=== PATIENT | male | born 1985 | race Two or more races ===

== ENCOUNTER 2019-04-11 12:21 | Emergency (ER) | payer MEDICAID, MEDICARE ==
[2019-04-11] MEDS ORDERED: cefTRIAXone 250 MG VIAL IM STA (12:44)
[2019-04-11] MEDS ORDERED: LIDOCAINE 1% 2 ML VIAL MC ONE (12:44)
--- NOTE | 2019-04-11 12:46 | ED Physician Documentation ---
History of Present Illness - Stated complaint Stated Complaint: MALE - Chief complaint Chief Complaint: General - History obtained from History obtained from: Patient - History of Present Illness Timing: Today (33-year-old gentleman presents with multiple complaints, first and foremost he is worried because he found out his has gonorrhea and would like to be tested and treated for same. He has no symptoms of that, no dysuria or discharge. He is unsure of whether he has had sex with his recently or not. Secondly has longstanding night sweats which he relates to his muscle relaxers and poor weight gain for 10 years. Finally he wants to quit smoking and would like a nicotine patch.) Review of Systems Constitutional: reports: Sweats (Only at night, Chronic). denies: Fever, Chills, Fatigue, Weight Loss Cardiac: denies: Chest pain / pressure, Palpitations Respiratory: denies: Dyspnea, Cough PD PAST MEDICAL HISTORY - Past Medical History Psych: Anxiety, ADD/ADHD, Other Musculoskeletal: Paraplegia - Past Surgical History Past Surgical History: No - Present Medications Home Medications: Ambulatory Orders Medication Instructions Recorded Confirmed Baclofen 20 mg PO TID 04/17/14 04/17/14 Nicotine 14 mg Patch [Nicoderm] 1 each TOP Q24H #30 patch 04/11/19 - Allergies Allergies/Adverse Reactions: Allergies Allergy/AdvReac Type Severity Reaction Status Date / Time acetaminophen [From Tylenol] AdvReac Dizziness Verified 04/17/14 18:50 - Social History Does the pt smoke?: Yes Smoking Status: Current every day smoker Does the pt drink ETOH?: No Does the pt have substance abuse?: Yes PD ED PE NORMAL - Vitals Vital signs reviewed: Yes - General General: Alert and oriented X 3, No acute distress - HEENT HEENT: PERRL, EOMI - Neck Neck: Supple, no meningeal sign, No bony TTP - Neuro Neuro: Alert and oriented X 3, Normal speech Results - Vitals Vitals: Vital Signs - 24 hr 04/11/19 12:26 Temperature 36.8 C Heart Rate 114 H Respiratory 20 Rate Blood Pressure 145/81 H O2 Saturation 98 Oxygen O2 Source Room air PD MEDICAL DECISION MAKING - ED course ED course: Discussed with him that we were happy to test and treat for gonorrhea, and nicotine patches no problem at all. For the other chronic issues I referred him back to his primary care physician. Departure - Departure Disposition: Home, Self Care Clinical Impression: Possible exposure to STD, Tobacco abuse Condition: Good Record reviewed to determine appropriate education?: Yes Instructions: ED STD Male Treated, ED Smoking Cessation Prescriptions: Nicotine 14 mg Patch [Nicoderm] 1 each TOP Q24H #30 patch Comments: We are testing and treating for gonorrhea. We are also testing for chlamydia. If either comes back positive we will call you. I am prescribing the nicotine patch as requested to help you quit smoking. For the other issues I recommend you follow-up with your primary care physician, next available appointment. Return for new or worsening symptoms.
[2019-04-11 12:56] VITALS: BP 127/77
[2019-04-11 21:48] LABS: TRICHOMONAS VAGINALIS DNA NEGATIVE (NEGATIVE)
== END 2019-04-11 13:20 | disposition home or self-care (01) ==
LOC: ED 12:21
DX: Z04.89 Encounter for examination and observation for other specified reasons (principal); F17.200 Nicotine dependence, unspecified, uncomplicated
CPT/HCPCS: 87491; 87591; 87661; 96372; 99283

== ENCOUNTER 2020-04-19 02:24 | Emergency (ER) | payer MEDICARE, MEDICAID ==
[2020-04-19 02:36] VITALS: BP 152/91
--- NOTE | 2020-04-19 02:55 | ED Physician Documentation ---
PD HPI HEENT - Stated complaint Stated Complaint: JAW PX - Chief complaint Chief Complaint: Heent - History obtained from History obtained from: Patient - History of Present Illness Timing - onset: Chronic Timing - details: Constant, Still present in ED Pain level now: 8 Location: Other (left mandible) Improves: Nothing Associated symptoms: No: Fever - Additional information Additional information: c/o chronic left jaw pain for which he was started on buprenorphone patch yesterday. despite this new medication, he says his pain continues without improvement. he says he has more patches but isnt clear if he is allowed to use more than one at a time. he is also concerned because he has had dental abscesses in the past when the pain has become as intense as it is today Review of Systems Constitutional: reports: Reviewed and negative Throat: reports: Dental pain / toothache (left mandibular pain although not noted to be associated with any specific tooth or teeth). denies: Sore throat PD PAST MEDICAL HISTORY - Past Medical History Neuro: Cerebral palsy Psych: Anxiety, ADD/ADHD, Other Musculoskeletal: Paraplegia - Past Surgical History Past Surgical History: No - Present Medications Home Medications: Ambulatory Orders Medication Instructions Recorded Confirmed Baclofen 20 mg PO TID 04/17/14 04/17/14 Nicotine 14 mg Patch [Nicoderm] 1 each TOP Q24H #30 patch 04/11/19 oxyCODONE [Roxicodone] 5 mg PO Q6H PRN #14 tablet 04/19/20 - Allergies Allergies/Adverse Reactions: Allergies Allergy/AdvReac Type Severity Reaction Status Date / Time acetaminophen [From Tylenol] AdvReac Dizziness Verified 04/17/14 18:50 [email or web address] [From Chantix] AdvReac Anxiety Verified 04/19/20 02:36 - Social History Does the pt smoke?: Yes Smoking Status: Current every day smoker Does the pt drink ETOH?: No Does the pt have substance abuse?: Yes - POLST Patient has POLST: No PD ED PE NORMAL - Vitals Vital signs reviewed: Yes - General General: Alert and oriented X 3, No acute distress, Well developed/nourished - HEENT HEENT: Moist mucous membranes, Dentition benign - Neck Neck: Supple, no meningeal sign Results - Vitals Vitals: Vital Signs - 24 hr 04/19/20 02:33 Temperature 36.4 C L Heart Rate 64 Respiratory 18 Rate Blood Pressure 152/91 H O2 Saturation 100 Oxygen O2 Source Room air PD MEDICAL DECISION MAKING - ED course Complexity details: considered differential, d/w patient ED course: patient presents with left mandible pain which he says he has had chronically but he has had no relief with recently placed buprenorphone patch. he is given oxycodone in ED as well as keflex for possible infectious cause (although no evidence of this on exam, he says the intensity of the pain is similar to previous dental abscess) Departure - Departure Disposition: 01 Home, Self Care Clinical Impression: Jaw pain Condition: Good Instructions: ED Tooth Pain Follow-Up: Laurence Urena MD [Primary Care Provider] - Prescriptions: oxyCODONE [Roxicodone] 5 mg PO Q6H PRN #14 tablet PRN Reason: Pain Discharge Date/Time: 04/19/20 03:45
[2020-04-19] MEDS ORDERED: cephALEXin 250 MG CAPSULE PO STA (03:18)
[2020-04-19] MEDS ORDERED: oxyCODONE 5 MG TABLET PO STA (03:18)
== END 2020-04-19 03:45 | disposition home or self-care (01) ==
LOC: ED 02:24
DX: R68.84 Jaw pain (principal); G80.9 Cerebral palsy, unspecified; F17.200 Nicotine dependence, unspecified, uncomplicated
CPT/HCPCS: 99282; 99283; A9270

== ENCOUNTER 2020-05-01 14:06 | Outpatient (CLI) | payer MEDICARE, MEDICAID ==
[2020-05-01 14:46] LABS: BILIRUBIN,DIRECT 0.1 mg/dL (0.1-0.5); BILIRUBIN,TOTAL 0.4 mg/dL (0.2-1.0); TOTAL PROTEIN 7.1 g/dL (6.7-8.2)
== END 2020-05-01 14:07 | disposition home or self-care (01) ==
LOC: LAB 14:06
PROVIDERS: ATTEND Physical Medicine & Rehabilitation
DX: M62.838 Other muscle spasm (principal)
CPT/HCPCS: 36415; 80076

== ENCOUNTER 2020-07-12 12:08 | Emergency (ER) | payer MEDICARE, MEDICAID ==
[2020-07-12] MEDS ORDERED: SODIUM CHLORIDE 0.9% 1,000 ML IV STA ×2 (12:48→14:06)
--- NOTE | 2020-07-12 12:48 | ED Physician Documentation ---
History of Present Illness - Stated complaint Stated Complaint: MALE - Chief complaint Chief Complaint: General - History obtained from History obtained from: Patient - Treatment prior to arrival Treatment prior to arrival: The previous antibiotic was Bactrim. - Additonal information Additional information: 34-year-old gentleman with history of cerebral palsy, autism. Diagnosed with UTI at the [facility] approximately 10 days ago. Was on about 7 days worth of antibiotics. After stopping the antibiotics the symptoms that preceded his previous UTI returned which consisted of nausea, vomiting, and generalized bloating. He now feels like he is dehydrated and does not have any ability to take in oral liquids because of the nausea although declines nausea medication or pain medication on initial evaluation. Review of Systems Constitutional: reports: Fever (100.0) Ears: denies: Loss of hearing, Ear pain Throat: denies: Dental pain / toothache Cardiac: denies: Chest pain / pressure, Palpitations Respiratory: denies: Dyspnea, Cough PD PAST MEDICAL HISTORY - Past Medical History Neuro: Cerebral palsy Psych: Anxiety, ADD/ADHD, Other Musculoskeletal: Paraplegia - Past Surgical History Past Surgical History: No - Present Medications Home Medications: Ambulatory Orders Medication Instructions Recorded Confirmed Baclofen 20 mg PO TID 04/17/14 04/17/14 Nicotine 14 mg Patch [Nicoderm] 1 each TOP Q24H #30 patch 04/11/19 oxyCODONE [Roxicodone] 5 mg PO Q6H PRN #14 tablet 04/19/20 Ondansetron Odt [Zofran] 4 mg TL Q6H PRN #10 tab 07/12/20 - Allergies Allergies/Adverse Reactions: Allergies Allergy/AdvReac Type Severity Reaction Status Date / Time diphenhydramine Allergy Unknown Verified 07/12/20 12:23 [From Benadryl] acetaminophen [From Tylenol] AdvReac Dizziness Verified 07/12/20 12:23 [email or web address] [From Chantix] AdvReac Anxiety Verified 07/12/20 12:23 - Social History Does the pt smoke?: Yes Smoking Status: Current every day smoker Does the pt drink ETOH?: No Does the pt have substance abuse?: Yes - POLST Patient has POLST: No PD ED PE NORMAL - Vitals Vital signs reviewed: Yes - General General: Alert and oriented X 3, No acute distress, Other (in a wheelchair) - Cardiac Cardiac: RRR, No murmur - Respiratory Respiratory: No respiratory distress, Clear bilaterally - Abdomen Abdomen: Normal bowel sounds, Soft, Non tender - Back Back: No CVA TTP - Derm Derm: No rash - Neuro Neuro: Alert and oriented X 3, Normal speech Results - Vitals Vitals: Vital Signs - 24 hr 07/12/20 07/12/20 07/12/20 12:12 14:26 17:09 Temperature 36.2 C L 36.6 C Heart Rate 60 55 L 50 L Respiratory 16 16 Rate Blood Pressure 148/79 H 126/88 H 134/88 H O2 Saturation 99 100 100 07/12/20 17:33 Temperature Heart Rate 54 L Respiratory 16 Rate Blood Pressure 130/99 H O2 Saturation 100 Oxygen O2 Source Room air - Labs Labs: Laboratory Tests 07/12/20 07/12/20 12:56 12:56 WBC 7.1 RBC 4.69 L Hgb 14.8 Hct 43.8 MCV 93.4 MCH 31.6 H MCHC 33.8 RDW 12.8 Plt Count 244 MPV 10.0 Neut # (Auto) 4.4 Lymph # (Auto) 1.8 [place] # (Auto) 0.7 Eos # (Auto) 0.2 Baso # (Auto) 0.0 Absolute Nucleated RBC 0.00 Nucleated RBC % 0.0 Sodium 143 Potassium 3.2 L Chloride 95 L Carbon Dioxide 27 Anion Gap 21.0 H BUN 13 Creatinine 0.9 Estimated GFR (MDRD) 95 Glucose 129 H Calcium 10.5 H Total Bilirubin 0.6 AST 16 ALT 15 Alkaline Phosphatase 60 Total Protein 8.2 Albumin 5.2 Globulin 3.0 Albumin/Globulin Ratio 1.7 PD MEDICAL DECISION MAKING - ED course ED course: 34-year-old gentleman with history of neurogenic bladder and cerebral palsy presents after a syndrome of vomiting and diarrhea, previous UTI on antibiotics and bloating with decreased urine output. He received first liter of fluid, subsequently bladder scan was 0. After second liter of fluid he had a scant amount in his bladder on bedside ultrasound. That was done by me, there was no free fluid in the abdomen and sonographic examination of both kidneys looked grossly normal. His labs do not show significant dehydration, his BUN is 13 and his creatinine is 0.9. He was administered some oral potassium here. The third liter of fluids was administered. He also requested oral fluids which was given. After 3 L of fluid he had a significant mount of urine in his bladder but did not feel like he could pee and declined in and out cath. Instead, he would like to go home and try some "intense CBD" to see if that can help him pee. Departure - Departure Disposition: 01 Home, Self Care Clinical Impression: Dehydration, Nausea Condition: Good Record reviewed to determine appropriate education?: Yes Instructions: ED Dehydration Prescriptions: Ondansetron Odt [Zofran] 4 mg TL Q6H PRN #10 tab PRN Reason: Nausea / Vomiting Comments: Come back anytime if for new or worsening symptoms or if not improving. Follow- up with your doctor, next available appointment.
[2020-07-12 13:02] LABS: BASOPHILS % (AUTO) 0.4 %; EOSINOPHILS # (AUTO) 0.2 10^3/uL (0.0-0.7); EOSINOPHILS % (AUTO) 2.4 %; HCT - HEMATOCRIT 43.8 % (42.0-52.0); HGB - HEMOGLOBIN 14.8 g/dL (14.0-18.0); LYMPHOCYTES # (AUTO) 1.8 10^3/uL (1.5-3.5); LYMPHOCYTES % (AUTO) 25.4 %; MEAN CORPUSCULAR HEMOGLOBIN 31.6 pg (27.0-31.0); MEAN CORPUSCULAR HGB CONC 33.8 g/dL (32.0-36.0); MEAN CORPUSCULAR VOLUME 93.4 fL (80.0-94.0); MONOCYTES # (AUTO) 0.7 10^3/uL (0.0-1.0); MONOCYTES % (AUTO) 9.3 %; NEUTROPHILS # (AUTO) 4.4 10^3/uL (1.5-6.6); NEUTROPHILS % (AUTO) 62.2 %; PLT - PLATELET COUNT 244 10^3/uL (130-450); RED BLOOD COUNT 4.69 10^6/uL (4.70-6.10); RED CELL DISTRIBUTION WIDTH 12.8 % (12.0-15.0); WHITE BLOOD COUNT 7.1 x10^3/uL (4.8-10.8)
[2020-07-12 13:20] LABS: ALBUMIN 5.2 g/dL (3.2-5.5); ALBUMIN/GLOBULIN RATIO 1.7 (1.0-2.2); BILIRUBIN,TOTAL 0.6 mg/dL (0.2-1.0); CALCIUM 10.5 mg/dL (8.5-10.3); CREATININE 0.9 mg/dL (0.6-1.2); POTASSIUM 3.2 mmol/L (3.5-5.0); TOTAL PROTEIN 8.2 g/dL (6.7-8.2)
[2020-07-12] MEDS ORDERED: LACTATED RINGERS 1,000 ML IV STA ×2 (14:00→16:04)
[2020-07-12] MEDS ORDERED: POTASSIUM CHLORIDE 20 MEQ TABLET PO STA (14:06)
[2020-07-12] MEDS ORDERED: ONDANSETRON ODT 4 MG TABLET TL STA (18:09)
[2020-07-12 18:29] VITALS: BP 140/83
== END 2020-07-12 18:37 | disposition home or self-care (01) ==
LOC: ED 12:08
DX: E86.0 Dehydration (principal); R11.2 Nausea with vomiting, unspecified; R14.0 Abdominal distension (gaseous); G80.8 Other cerebral palsy; F84.0 Autistic disorder; F17.200 Nicotine dependence, unspecified, uncomplicated
CPT/HCPCS: 36415; 51798; 80053; 85025; 96360; 96361; 99283; A9270; J7120; Q0162

== ENCOUNTER 2020-11-06 13:39 | Emergency (ER) | payer MEDICARE, MEDICAID ==
[2020-11-06 14:20] LABS: BASOPHILS # (AUTO) 0.1 10^3/uL (0.0-0.1); BASOPHILS % (AUTO) 0.5 %; EOSINOPHILS # (AUTO) 0.5 10^3/uL (0.0-0.7); EOSINOPHILS % (AUTO) 4.8 %; HGB - HEMOGLOBIN 13.8 g/dL (14.0-18.0); LYMPHOCYTES # (AUTO) 1.6 10^3/uL (1.5-3.5); LYMPHOCYTES % (AUTO) 14.7 %; MEAN CORPUSCULAR HEMOGLOBIN 31.7 pg (27.0-31.0); MEAN CORPUSCULAR HGB CONC 34.5 g/dL (32.0-36.0); MEAN PLATELET VOLUME 9.6 fL (7.4-11.4); MONOCYTES # (AUTO) 0.8 10^3/uL (0.0-1.0); MONOCYTES % (AUTO) 7.6 %; NEUTROPHILS # (AUTO) 7.6 10^3/uL (1.5-6.6); NEUTROPHILS % (AUTO) 72.2 %; PLT - PLATELET COUNT 261 10^3/uL (130-450); RED BLOOD COUNT 4.35 10^6/uL (4.70-6.10); RED CELL DISTRIBUTION WIDTH 12.6 % (12.0-15.0); WHITE BLOOD COUNT 10.6 x10^3/uL (4.8-10.8)
--- NOTE | 2020-11-06 14:20 | XRAY Report ---
PROCEDURE: Chest 1 View X-Ray INDICATIONS: Chest Pain TECHNIQUE: One view of the chest was acquired. COMPARISON: None. FINDINGS: Surgical changes and devices: None. Lungs and pleura: No pleural effusions or pneumothorax. Lungs are clear. Mediastinum: Mediastinal contours appear normal. Heart size is normal. Bones and chest wall: No suspicious bony lesions. Overlying soft tissues appear unremarkable. IMPRESSION: Normal for age, source of current symptoms is not seen. Reviewed by: Stalin Ho MD on 11/06/2020 1:18 PM AKALIYA Approved by: Stalin Ho MD on 11/06/2020 1:18 PM AKALIYA Station ID: [id number]
[2020-11-06 14:38] LABS: ALBUMIN 4.3 g/dL (3.2-5.5); ALBUMIN/GLOBULIN RATIO 1.6 (1.0-2.2); BILIRUBIN,TOTAL 0.5 mg/dL (0.2-1.0); CALCIUM 9.1 mg/dL (8.5-10.3); CREATININE 0.7 mg/dL (0.6-1.2); POTASSIUM 3.5 mmol/L (3.5-5.0)
--- OUTSIDE RECORDS SUMMARY | 2020-11-06 14:38 | EXTERNAL MEDICAL SUMMARY RPT | Continuity of Care Document ---
:1985 Demographics Phone Unavailable Preferred Language Unknown Marital Status Unknown Muslim Affiliation Unknown Race Unknown Ethnic Group Unknown Author Organization [facility] Address [address] [id number] Phone Allergies Encounters Medications Problems Results
[2020-11-06] MEDS ORDERED: SODIUM CHLORIDE 0.9% 1,000 ML IV STA ×2 (15:00→15:05)
[2020-11-06] MEDS ORDERED: ONDANSETRON 4 MG/2 ML VIAL IVP STA (15:00)
--- NOTE | 2020-11-06 15:04 | ED Physician Documentation ---
History of Present Illness - Stated complaint Stated Complaint: NAUSEA/FAINTING - Chief complaint Chief Complaint: General - Additonal information Additional information: 35-year-old male who has a history of cerebral palsy as well as dystonia reports to the emergency department for 2 to 3 days of uncontrolled vomiting as well as multiple syncopal episodes. He reports the vomiting has been a longtime concern for him. He has been told it is a medication side effect. He reports a recent colonoscopy and EGD that did not show any findings associated with GERD or gastritis but he does have dystonia of the gut. Patient denies chest pain or shortness of air. No abdominal pain melena or hematochezia. Patient is on buponephrone 20 carmita patch changed every week for pain control and dystonia. Review of Systems Constitutional: denies: Fever, Chills Eyes: reports: Reviewed and negative Ears: reports: Reviewed and negative Nose: reports: Reviewed and negative Throat: reports: Reviewed and negative Cardiac: denies: Chest pain / pressure, Palpitations Respiratory: denies: Dyspnea, Cough GI: reports: Nausea, Vomiting. denies: Abdominal Pain, Constipation, Diarrhea, Hematemesis, Bloody / black stool : denies: Dysuria, Frequency, Hesitancy Skin: denies: Rash, Lesions Musculoskeletal: denies: Neck pain, Back pain, Extremity pain Neurologic: denies: Generalized weakness, Focal weakness Psychiatric: denies: Depressed, Suicidal PD PAST MEDICAL HISTORY - Past Medical History Neuro: Cerebral palsy Psych: Anxiety, ADD/ADHD, Other Musculoskeletal: Paraplegia - Past Surgical History Past Surgical History: No - Present Medications Home Medications: Ambulatory Orders Medication Instructions Recorded Confirmed Buprenorphine 1 patch TOP ONCE 11/06/20 11/06/20 Dantrolene Sodium [Dantrium] 75 mg PO TID 11/06/20 11/06/20 Metoclopramide [Reglan] 10 mg PO Q6H PRN #20 tablet 11/06/20 - Allergies Allergies/Adverse Reactions: Allergies Allergy/AdvReac Type Severity Reaction Status Date / Time diphenhydramine Allergy Unknown Verified 11/06/20 13:46 [From Benadryl] acetaminophen [From Tylenol] AdvReac Dizziness Verified 11/06/20 13:46 [email or web address] [From Chantix] AdvReac Anxiety Verified 11/06/20 13:46 - Social History Does the pt smoke?: Yes Smoking Status: Current every day smoker Does the pt drink ETOH?: No Does the pt have substance abuse?: Yes - POLST Patient has POLST: No PD ED PE EXPANDED - General General: Alert, No acute distress - Neck Neck: Supple w/out meningeal sx, No tenderness - Cardiac Cardiac: Regular Rate, Regular Rhythm, Radial strong equal, Pedal strong equal, Cap refill < 2 sec. No: Murmur Present - Respiratory Respiratory: Clear to ausultation seven. No: Distress, Labored - Abdomen Abdomen: Normal Bowel sounds. No: Tender to palpation - Extremities Extremities: Normal, Pedal edema bilateral (unchanged from baseline). No: Deformity, Tenderness - Neuro Neuro: Alert and Oriented X 3, CNII-XII intact - GCS Eye Opening: Spontaneous Motor: Obeys Commands Verbal: Oriented Total: 15 Results - Vitals Vitals: Vital Signs - 24 hr 11/06/20 11/06/20 11/06/20 13:47 15:06 15:51 Temperature 37.3 C Heart Rate 78 67 Heart Rate [ 83 Sitting] Heart Rate [ 78 Supine] Respiratory 18 18 Rate Blood Pressure 151/80 H 126/77 Blood Pressure 138/82 H [Sitting] Blood Pressure 133/72 H [Supine] O2 Saturation 99 99 Oxygen O2 Source Room air - EKG (time done) 1419 Rate: Rate (enter#) (75) Rhythm: Sinus bradycardia [place]: Normal QRS: LVH, Poor R wave progression Ischemia: Normal ST segments Compare to prior EKG: Old EKG unavailable Computer interpretation: Agree with computer - Labs Labs: Laboratory Tests 11/06/20 11/06/20 11/06/20 14:15 14:15 14:15 WBC 10.6 RBC 4.35 L Hgb 13.8 L Hct 40.0 L MCV 92.0 MCH 31.7 H MCHC 34.5 RDW 12.6 Plt Count 261 MPV 9.6 Neut # (Auto) 7.6 H Lymph # (Auto) 1.6 [place] # (Auto) 0.8 Eos # (Auto) 0.5 Baso # (Auto) 0.1 Absolute Nucleated RBC 0.00 Nucleated RBC % 0.0 Sodium 137 Potassium 3.5 Chloride 102 Carbon Dioxide 25 Anion Gap 10.0 BUN 10 Creatinine 0.7 Estimated GFR (MDRD) 127 Glucose 104 H Calcium 9.1 Total Bilirubin 0.5 AST 16 ALT 10 Alkaline Phosphatase 52 Troponin I High Sens 4.0 Total Protein 7.0 Albumin 4.3 Globulin 2.7 Albumin/Globulin Ratio 1.6 Lipase 18 L - Rads (name of study) CXR Radiology: Final report received (Normal for age, source of current symptoms is not seen.) PD MEDICAL DECISION MAKING - ED course Complexity details: reviewed results, re-evaluated patient, d/w patient ED course: 35-year-old male who has a history of cerebral palsy as well as dystonia presents the emergency department with 2 to 3 days of uncontrolled vomiting as well as syncope. He reports that he has fainted in the past after vomiting and becoming dehydrated. Today's screening labs, EKG and chest x-ray are all without acute worrisome findings. We did do a limited orthostatics given his history of cerebral palsy that showed no vital sign aberrancy. This gentleman was given 2 L of crystalloid with improved nausea in the emergency department. He had no vomiting and was tolerating sips of clear liquids. He was given Zofran followed by a dose of Reglan. I suspect that the cause of his vomiting is secondary to the dystonia and cerebral palsy. No abdominal pain was elicited therefore imaging was deferred. I will write a prescription for Reglan to help with the dystonia and vomiting. Patient is to continue follow-up with his neurologist for long-term management of his cerebral palsy. Emergent return precautions were discussed. Departure - Departure Disposition: 01 Home, Self Care Clinical Impression: Dystonia Vomiting Qualifiers: Vomiting type: unspecified Vomiting Intractability: non-intractable Nausea presence: with nausea Qualified Code(s): R11.2 - Nausea with vomiting, unspecified Cerebral palsy Qualifiers: Cerebral palsy type: unspecified type Qualified Code(s): G80.9 - Cerebral palsy, unspecified Condition: Stable Record reviewed to determine appropriate education?: Yes Prescriptions: Metoclopramide [Reglan] 10 mg PO Q6H PRN #20 tablet PRN Reason: Nausea / Vomiting Comments: *You are seen in the emergency department today for vomiting in the setting of a history of cerebral palsy as well as dystonia. Your screening labs, chest x- ray and EKG did not show any worrisome findings. I suspect that the vomiting may be secondary to medications that you are taking for the cerebral palsy and dystonia or directly related to the dystonia itself. To help with this I have prescribed a medication called Reglan that should help with the nausea and vomiting at home. You are given 2 L of IV fluids here in the emergency department today. It is important that you discuss long-term follow-up and management of your dystonia with your neurologist. If at any point you have worsening vomiting, persistence of the fainting spells suddenly severe abdominal pain or fevers please return to the ER for a second evaluation
[2020-11-06] MEDS ORDERED: METOCLOPRAMIDE 10 MG/2 ML VIAL IVP STA (15:48)
[2020-11-06 16:40] VITALS: BP 117/77
[2020-11-07] MEDS ORDERED: FLUoxetine 10 MG CAPSULE PO SCH (09:00)
== END 2020-11-06 17:17 | disposition home or self-care (01) ==
LOC: ED 13:39
DX: G24.9 Dystonia, unspecified (principal); G80.9 Cerebral palsy, unspecified; R11.2 Nausea with vomiting, unspecified; R00.1 Bradycardia, unspecified; F17.200 Nicotine dependence, unspecified, uncomplicated
CPT/HCPCS: 36415; 71045; 80053; 83690; 84484; 85025; 93005; 96374; 96375; 99283; 99284; J2765

== ENCOUNTER 2021-02-12 14:41 | Outpatient (CLI) | payer MEDICARE, MEDICAID ==
[2021-02-12 15:02] LABS: BASOPHILS % (AUTO) 0.4 %; EOSINOPHILS # (AUTO) 0.4 10^3/uL (0.0-0.7); EOSINOPHILS % (AUTO) 4.5 %; HCT - HEMATOCRIT 42.9 % (42.0-52.0); HGB - HEMOGLOBIN 14.3 g/dL (14.0-18.0); LYMPHOCYTES # (AUTO) 1.7 10^3/uL (1.5-3.5); LYMPHOCYTES % (AUTO) 17.6 %; MEAN CORPUSCULAR HEMOGLOBIN 31.1 pg (27.0-31.0); MEAN CORPUSCULAR HGB CONC 33.3 g/dL (32.0-36.0); MEAN CORPUSCULAR VOLUME 93.3 fL (80.0-94.0); MEAN PLATELET VOLUME 9.9 fL (7.4-11.4); MONOCYTES # (AUTO) 0.9 10^3/uL (0.0-1.0); MONOCYTES % (AUTO) 9.2 %; NEUTROPHILS # (AUTO) 6.5 10^3/uL (1.5-6.6); NEUTROPHILS % (AUTO) 68.1 %; PLT - PLATELET COUNT 230 10^3/uL (130-450); RED CELL DISTRIBUTION WIDTH 13.2 % (12.0-15.0); WHITE BLOOD COUNT 9.6 x10^3/uL (4.8-10.8)
[2021-02-12 15:12] LABS: ALBUMIN 4.5 g/dL (3.2-5.5); BILIRUBIN,DIRECT 0.1 mg/dL (0.1-0.5); BILIRUBIN,TOTAL 0.8 mg/dL (0.2-1.0); TOTAL PROTEIN 7.5 g/dL (6.7-8.2)
== END 2021-02-12 14:42 | disposition home or self-care (01) ==
LOC: LAB 14:41
PROVIDERS: ATTEND Physical Medicine & Rehabilitation
DX: M62.838 Other muscle spasm (principal)
CPT/HCPCS: 36415; 80076; 85025

== ENCOUNTER 2021-08-27 21:55 | Emergency (ER) | payer MEDICARE, MEDICAID ==
--- NOTE | 2021-08-27 22:38 | ED Physician Documentation ---
PD HPI HEENT - Stated complaint Stated Complaint: TOOTH PX - History obtained from History obtained from: Patient - History of Present Illness Timing - onset: How many weeks ago (1) Timing - details: Gradual onset Pain level now: 6 Location: Tooth Improves: Nothing Associated symptoms: No: Fever Recently seen: Not recently seen - Additional information Additional information: Patient c/o abscessed tooth (per patient). Asked to describe symptoms, he says he has a broken tooth (left mandibular 2nd molar) and over the past week the area around this tooth has become increasingly swollen and tender and that he has intermittent pus discharge from the area where the tooth is broken. He says he has had problems with this tooth before, has been to [facility] as well as [facility] and that attempts to extract the tooth were unsuccessful due to (per patient) inadequate anesthesia Review of Systems Constitutional: denies: Fever Throat: reports: Dental pain / toothache PD PAST MEDICAL HISTORY - Past Medical History Past Medical History: Yes Cardiovascular: None Respiratory: None Neuro: Cerebral palsy Endocrine/Autoimmune: None GI: None : Other HEENT: None Psych: Anxiety, ADD/ADHD, Other Musculoskeletal: Paraplegia Derm: None - Past Surgical History Past Surgical History: No - Present Medications Home Medications: Ambulatory Orders Medication Instructions Recorded Confirmed Buprenorphine 1 patch TOP ONCE 11/06/20 11/06/20 Dantrolene Sodium [Dantrium] 75 mg PO TID 11/06/20 11/06/20 Metoclopramide [Reglan] 10 mg PO Q6H PRN #20 tablet 11/06/20 HYDROcod/ACETAM 5/325 [[place] 5/325] 1 - 2 tablet PO Q6H PRN #14 tablet 08/27/21 clindamycin HCL [Clindamycin HCl] 300 mg PO Q6HR #27 cap 08/27/21 - Allergies Allergies/Adverse Reactions: Allergies Allergy/AdvReac Type Severity Reaction Status Date / Time diphenhydramine Allergy Unknown Verified 08/27/21 22:09 [From Benadryl] acetaminophen [From Tylenol] AdvReac Dizziness Verified 08/27/21 22:09 aspirin AdvReac Unknown Verified 08/27/21 22:39 [email or web address] [From Chantix] AdvReac Anxiety Verified 08/27/21 22:09 - Social History Does the pt smoke?: Yes Smoking Status: Current every day smoker Does the pt drink ETOH?: No Does the pt have substance abuse?: Yes - Immunizations Immunizations are current?: No - POLST Patient has POLST: No PD ED PE NORMAL - Vitals Vital signs reviewed: Yes - General General: Alert and oriented X 3, No acute distress, Well developed/nourished - HEENT HEENT: Moist mucous membranes - Neck Neck: Supple, no meningeal sign PD ED PE EXPANDED - HEENT HEENT: Dental decay (mild/moderate diffuse dental decay) HEENT Visual: 1 - tenderness (posterior half of tooth is missing. there is no obvious swelling or erythema of gingiva. the tooth and gingiva have tenderness to percussion/palpation. No pus noted.) Results - Vitals Vitals: Oxygen O2 Source Room air PD MEDICAL DECISION MAKING - ED course Complexity details: reviewed old records, considered differential, d/w patient ED course: tenderness of left mandibular second molar without over evidence of abscess. he describes pain and pus discharge from the area. Will cover possible early infection with clindamycin, and vicodin for pain (both given in ED and prescriptions transmitted to his pharmacy of choice) Departure - Departure Disposition: 01 Home, Self Care Clinical Impression: Pain, dental Condition: Good Instructions: ED Tooth Pain Follow-Up: DENISE COOMBS MD [Primary Care Provider] - Prescriptions: clindamycin HCL [Clindamycin HCl] 300 mg PO Q6HR #27 cap HYDROcod/ACETAM 5/325 [[place] 5/325] 1 - 2 tablet PO Q6H PRN #14 tablet PRN Reason: Pain Comments: Prescriptions for vicodin (opiate pain medication) and clindamycin (antibiotic) have been electronically submitted to [facility]. Follow up with a dentist within one week. I know that you have indicated there were problems with procedures on this tooth in the past, but you should ask either your primary care provider or else dentistry for a referral to [facility]. Even if a procedure is not needed or performed, following up to ensure the infection is improving would best be done in the outpatient setting. I am prescribing a short course of narcotic pain medication for you. These are potentially dangerous and addictive medications that should be used carefully. These medications may constipate you. Take an [id number] stool softener (docusate) twice daily with plenty of water while taking these medications. If you go 24 hours without a bowel movement, take [id number] miralax, per package instructions. Do not drink or drive while taking these medications. If you received narcotic or sedating medications while in the emergency department, do not drive for 24 hours. Store this medication in a safe, secure place and out of reach of children. It is a violation of federal law to give or sell this medication to another person or to use in a manner other than prescribed. The ED will not refill narcotic prescriptions, including prescriptions lost or stolen. To dispose of unwanted medications: 1. [facility] at [address] in [place] has a medication drop box. They accept prescription medications (in pill form) Thursday through Thursday 9:00 a.m. to 5:00 p.m. 2. The [facility] accepts prescription medications (in pill form only) for disposal year round. Call for more information. 3. Contact the [facility] for the next [facility] sponsored prescription drug collection event. , [phone], or [phone]; Discharge Date/Time: 08/27/21 23:15
[2021-08-27] MEDS ORDERED: HYDROcod/ACETAM 5/325 MG TABLET PO STA (22:57)
[2021-08-27] MEDS ORDERED: CLINDAMYCIN 150 MG CAPSULE PO STA (22:57)
[2021-08-27 23:17] VITALS: BP 135/71
== END 2021-08-27 23:15 | disposition home or self-care (01) ==
LOC: ED 21:55
DX: K08.89 Other specified disorders of teeth and supporting structures (principal); F17.200 Nicotine dependence, unspecified, uncomplicated
CPT/HCPCS: 99282; 99283; A9270

== ENCOUNTER 2021-09-28 13:51 | Emergency (ER) | payer MEDICARE, MEDICAID ==
[2021-09-28 14:01] VITALS: BP 123/68
--- OUTSIDE RECORDS SUMMARY | 2021-09-28 14:20 | EXTERNAL MEDICAL SUMMARY RPT | Continuity of Care Document ---
:1985 Author Organization [place] Address [address] [place] [address] Phone Allergies No information. Encounters No information. Medications No information. Problems date description facility [id number] Dyskinesia of esophagus [facility] [id number] Dysphagia, unspecified [facility] Results No information.
--- NOTE | 2021-09-28 14:24 | ED Physician Documentation ---
History of Present Illness - Stated complaint Stated Complaint: WEIGHT CHECKS - Chief complaint Chief Complaint: General - History obtained from History obtained from: Patient - History of Present Illness Timing: Other (Patient states he is status post J-tube placement for malnutrition and need for weight gain. He has not been able to get a weight at home because he is wheelchair-bound and such. 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 denies: Nausea, Vomiting, Diarrhea PD PAST MEDICAL HISTORY - Past Medical History Cardiovascular: None Respiratory: None Neuro: Cerebral palsy Endocrine/Autoimmune: None GI: None : Other HEENT: None Psych: Anxiety, ADD/ADHD, Other Musculoskeletal: Paraplegia Derm: None - Past Surgical History Past Surgical History: No - Present Medications Home Medications: Ambulatory Orders Medication Instructions Recorded Confirmed Buprenorphine 1 patch TOP ONCE 11/06/20 11/06/20 Dantrolene Sodium [Dantrium] 75 mg PO TID 11/06/20 11/06/20 Metoclopramide [Reglan] 10 mg PO Q6H PRN #20 tablet 11/06/20 HYDROcod/ACETAM 5/325 [[place] 5/325] 1 - 2 tablet PO Q6H PRN #14 tablet 08/27/21 clindamycin HCL [Clindamycin HCl] 300 mg PO Q6HR #27 cap 08/27/21 - Allergies Allergies/Adverse Reactions: Allergies Allergy/AdvReac Type Severity Reaction Status Date / Time diphenhydramine Allergy Unknown Verified 09/28/21 13:56 [From Benadryl] acetaminophen [From Tylenol] AdvReac Dizziness Verified 09/28/21 13:56 aspirin AdvReac Unknown Verified 09/28/21 13:56 [email or web address] [From Chantix] AdvReac Anxiety Verified 09/28/21 13:56 - Social History Does the pt smoke?: Yes Smoking Status: Current every day smoker Does the pt drink ETOH?: No Does the pt have substance abuse?: Yes - Immunizations Immunizations are current?: No - POLST Patient has POLST: No PD ED PE NORMAL - Vitals Vital signs reviewed: Yes - General General: Alert and oriented X 3, Well developed/nourished - Abdomen Abdomen: Normal bowel sounds, Soft, Non distended, No organomegaly, Other (Feeding tube placement in the left mid abdomen without any signs of infection. The skin appears in good condition.) Results - Vitals Vitals: Vital Signs - 24 hr 09/28/21 13:57 Temperature 36.9 C Heart Rate 89 Respiratory 16 Rate Blood Pressure 123/68 O2 Saturation 100 Oxygen O2 Source Room air PD MEDICAL DECISION MAKING - ED course Complexity details: considered differential (He is post a feeding tube placement and getting tube feedings. And neck airway is needed to assess the proper nutrition amount. Due to wheelchair-bound he is unable to really get an accurate weight at home.), d/w patient Departure - Departure Disposition: 01 Home, Self Care Clinical Impression: Status post gastrostomy tube placement, follow-up exam Malnutrition Qualifiers: Malnutrition type: unspecified type Qualified Code(s): E46 - Unspecified protein-calorie malnutrition Condition: Stable Record reviewed to determine appropriate education?: Yes Comments: Your weight today is 55.8 kg which is 123 pounds.
== END 2021-09-28 14:35 | disposition home or self-care (01) ==
LOC: ED 13:51
DX: Z76.89 Persons encountering health services in other specified circumstances (principal); E46 Unspecified protein-calorie malnutrition; Z93.1 Gastrostomy status; F17.200 Nicotine dependence, unspecified, uncomplicated
CPT/HCPCS: 99281

== ENCOUNTER 2021-10-07 00:27 | Emergency (ER) | payer MEDICARE, MEDICAID ==
--- OUTSIDE RECORDS SUMMARY | 2021-10-07 00:36 | EXTERNAL MEDICAL SUMMARY RPT | Continuity of Care Document ---
:1985 Author Organization [place] Address [address] [phone] Phone Allergies No information. Encounters No information. Medications No information. Problems date description facility [id number] Dyskinesia of esophagus [facility] [id number] Dysphagia, unspecified [facility] Results No information.
[2021-10-07 00:42] VITALS: BP 149/97
[2021-10-07] MEDS ORDERED: ONDANSETRON ODT 4 MG Prepack 2 TL PRN (01:00)
[2021-10-07] MEDS ORDERED: BACITRACIN ZINC OINT 1 PACKET TOP STA (01:01)
--- NOTE | 2021-10-07 01:07 | ED Physician Documentation ---
History of Present Illness - Stated complaint Stated Complaint: FACIAL MED REACTION - Chief complaint Chief Complaint: Abd Pain - History obtained from History obtained from: Patient - Additonal information Additional information: The patient comes to the emergency department with chief complaint of facial rash and nausea after starting Suboxone films. The patient states he was started on the Suboxone by his pain specialist in [place]. He has a history of cerebral palsy and chronic pain equivalents, and has been on transdermal Suboxone before. He states he had a mild rash with that but otherwise, did not have any issues with it. He was later switched to tizanidine and Lyrica, but these did not seem to be controlling the pain well, so his Pain specialist switched him to the Suboxone film. The patient states that it seemed to work well initially when he started it a few days ago, but then he began noticing that he was having an outbreak of a rash above his lips and over the bridge of h is nose. Patient states he does not believe this is related to wearing a mask. He states that he felt as though his lymph nodes were enlarged and his throat. He denies any difficulty speaking or breathing. The patient states that he did vomit several times with the nausea, but was able to get this under control by just putting Pedialyte in his G-tube. The patient states that he is in some linda n but mainly, wants to get the rash under control. He is not currently nauseated. He did stop the Suboxone with last dose being yesterday. No other complaints at this time. Review of Systems Ten Systems: 10 systems reviewed and negative Constitutional: reports: Reviewed and negative Eyes: reports: Reviewed and negative Ears: reports: Reviewed and negative Nose: reports: Reviewed and negative Throat: reports: Reviewed and negative Cardiac: reports: Reviewed and negative Respiratory: reports: Reviewed and negative GI: reports: Reviewed and negative : reports: Reviewed and negative Skin: reports: Rash Musculoskeletal: reports: Reviewed and negative Neurologic: reports: Reviewed and negative Psychiatric: reports: Reviewed and negative Endocrine: reports: Reviewed and negative Immunocompromised: reports: Reviewed and negative PD PAST MEDICAL HISTORY - Past Medical History Cardiovascular: None Respiratory: None Neuro: Cerebral palsy Endocrine/Autoimmune: None GI: None : Other HEENT: None Psych: Anxiety, ADD/ADHD, Other Musculoskeletal: Paraplegia Derm: None - Past Surgical History Past Surgical History: No - Present Medications Home Medications: Ambulatory Orders Medication Instructions Recorded Confirmed Buprenorphine 1 patch TOP ONCE 11/06/20 11/06/20 Dantrolene Sodium [Dantrium] 75 mg PO TID 11/06/20 11/06/20 Metoclopramide [Reglan] 10 mg PO Q6H PRN #20 tablet 11/06/20 HYDROcod/ACETAM 5/325 [[place] 5/325] 1 - 2 tablet PO Q6H PRN #14 tablet 08/27/21 clindamycin HCL [Clindamycin HCl] 300 mg PO Q6HR #27 cap 08/27/21 Hydrocortisone 1% Cream 1 applic TOP BID #28 gm 10/07/21 [Hydrocortisone] - Allergies Allergies/Adverse Reactions: Allergies Allergy/AdvReac Type Severity Reaction Status Date / Time diphenhydramine Allergy Unknown Verified 10/07/21 00:33 [From Benadryl] acetaminophen [From Tylenol] AdvReac Dizziness Verified 10/07/21 00:33 aspirin AdvReac Unknown Verified 10/07/21 00:33 [email or web address] [From Chantix] AdvReac Anxiety Verified 10/07/21 00:33 - Social History Does the pt smoke?: Yes Smoking Status: Current every day smoker Does the pt drink ETOH?: No Does the pt have substance abuse?: Yes - Immunizations Immunizations are current?: No - POLST Patient has POLST: No PD ED PE NORMAL - Vitals Vital signs reviewed: Yes - General General: Alert and oriented X 3, No acute distress, Well developed/nourished, Other (The patient speaks easily. He displays no evidence of airway comp romise.) - HEENT HEENT: Atraumatic, PERRL, EOMI, Moist mucous membranes, Pharynx benign (No edema) - Neck Neck: Supple, no meningeal sign - Cardiac Cardiac: RRR, No murmur, Strong equal pulses - Respiratory Respiratory: No respiratory distress, Clear bilaterally - Derm Derm: Normal color, Warm and dry, Other (Mild, scabbed rash over upper lip bilaterally and over the bridge of the nose. No induration or edema. No erythema. 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 I discussed with the patient that he could either cut down the size of the film, or he could stop the Suboxone and call his pain specialist later this morning when the clinic opens. Patient opted for the latter, stating that he had already tried cutting the size of his Suboxone film down. I do not find any evidence of an obvious allergic reaction, and the rash in the patient's face actually appears more chronic. We have discussed follow- up and the usual indications for return. Departure - Departure Disposition: 01 Home, Self Care Clinical Impression: Facial rash Vomiting Qualifiers: Vomiting type: bilious vomiting Nausea presence: with nausea Qualified Code(s): R11.14 - Bilious vomiting Condition: Stable Instructions: ED Nausea Vomiting Prescriptions: Hydrocortisone 1% Cream [Hydrocortisone] 1 applic TOP BID #28 gm Comments: Please call your pain specialist office first thing in the morning to discuss alternatives to the current medication regimen you are on.
== END 2021-10-07 01:20 | disposition home or self-care (01) ==
LOC: ED 00:27
DX: R21 Rash and other nonspecific skin eruption (principal); R11.2 Nausea with vomiting, unspecified; F17.200 Nicotine dependence, unspecified, uncomplicated
CPT/HCPCS: 99282; 99283; A9270

== ENCOUNTER 2021-10-31 13:23 | Outpatient (CLI) | payer MEDICARE, MEDICAID ==
[2021-10-31 13:56] LABS: ALBUMIN 3.7 g/dL (3.2-5.5); ALKALINE PHOSPHATASE 79 IU/L (42-121); ALT ALANINE AMINOTRANSFERASE 43 IU/L (10-60); AST ASPARTATE AMINOTRANSFERASE 30 IU/L (10-42); BILIRUBIN,TOTAL 0.4 mg/dL (0.2-1.0); TOTAL PROTEIN 6.7 g/dL (6.7-8.2)
[2021-10-31 15:25] LABS: BILIRUBIN,DIRECT < 0.1 mg/dL (0.1-0.5)
[2021-10-31 16:03] LABS: CALCIUM 9.2 mg/dL (8.5-10.3); CREATININE 0.7 mg/dL (0.6-1.2); POTASSIUM 4.4 mmol/L (3.5-5.0)
== END 2021-10-31 13:24 | disposition home or self-care (01) ==
LOC: LAB 13:23
PROVIDERS: ATTEND Physical Medicine & Rehabilitation
DX: Z93.1 Gastrostomy status (principal); M62.838 Other muscle spasm
CPT/HCPCS: 36415; 80048; 80076

== ENCOUNTER 2021-12-12 21:57 | Emergency (ER) | payer MEDICARE, MEDICAID ==
--- OUTSIDE RECORDS SUMMARY | 2021-12-12 22:13 | EXTERNAL MEDICAL SUMMARY RPT | Continuity of Care Document ---
:1985 Author Organization [facility] Address [address] [place] [address] Phone Allergies No information. Encounters No information. Functional Status No information. Immunizations No information. Medications date description facility +0000 Prednisone 20 MG Oral Tablet [facility] ospital Problems No information. Procedures date description facility +0000 General [facility] Results/Labs test date author facility value unit interpret ation Result panel 1 (unknown) (no date) (unknown) (unknown) 3+ (units (unkn own) unknown) (unknown) (no date) (unknown) (unknown) Cult Not (units (unkn own) Indicated unknown) (unknown) (no date) (unknown) (unknown) None Seen (units (unk nown) unknown) (unknown) (no date) (unknown) (unknown) None Seen (units (unk nown) unknown) (unknown) (no date) (unknown) (unknown) None Seen (units (unk nown) unknown) Result panel 2 (unknown) (no (unknown) (unknown) (no value) (units (unk nown) date) unknown) (unknown) (no (unknown) (unknown) Date of Service: (units (unknown) date) 10/07/21 unknown) (unknown) (no (unknown) (unknown) (no value) (units (unk nown) date) unknown) (unknown) (no (unknown) (unknown) ED Orders (units (unkn own) date) unknown) (unknown) (no (unknown) (unknown) Emergency Report (units (unknown) date) unknown) (unknown) (no (unknown) (unknown) [facility] (units (unknown) date) [address] unknown) [place] [address] (unknown) (no (unknown) (unknown) Lab Results (units (un known) date) unknown) (unknown) (no (unknown) (unknown) Urine Dip (units (unkn own) date) unknown) (unknown) (no (unknown) (unknown) Vital Signs - 8 hr (units (unknown) date) unknown) (unknown) (no (unknown) (unknown) (no value) (units (unk nown) date) unknown) (unknown) (no (unknown) (unknown) 10/07/21 (units (unkno wn) date) Range/Units unknown) (unknown) (no (unknown) (unknown) 15:15 (units (unkno wn) date) unknown) (unknown) (no (unknown) (unknown) 10/07/21 (units (unkno wn) date) unknown) (unknown) (no (unknown) (unknown) [id number] (units (unkno wn) date) unknown) (unknown) (no (unknown) (unknown) 10/07/21 15:15 (units (unknown) date) unknown) (unknown) (no (unknown) (unknown) 15:27 (units (unkno wn) date) unknown) (unknown) (no (unknown) (unknown) Age/Sex: 36 / M (units (unknown) date) unknown) (unknown) (no (unknown) (unknown) Allergic/Immunolog (units (unknown) date) ic unknown) (unknown) (no (unknown) (unknown) Allergic/Immunolog (units (unknown) date) ic: Denies unknown) urticaria, Denies throat swelling and Denies (unknown) (no (unknown) (unknown) Amorphous Sediment (units (unknown) date) 3+ unknown) (unknown) (no (unknown) (unknown) Bedside Urine (units ( unknown) date) Bilirubin - unknown) Negative (unknown) (no (unknown) (unknown) Bedside Urine (units ( unknown) date) Glucose Negative unknown) (unknown) (no (unknown) (unknown) Bedside Urine (units ( unknown) date) Ketone - unknown) Negative (unknown) (no (unknown) (unknown) Bedside Urine (units ( unknown) date) Leukocytes unknown) +/- 15 (unknown) (no (unknown) (unknown) Bedside Urine (units ( unknown) date) Nitrite - unknown) Negative (unknown) (no (unknown) (unknown) Bedside Urine (units ( unknown) date) Occult Blood - unknown) Negative (unknown) (no (unknown) (unknown) Bedside Urine (units ( unknown) date) Protein - unknown) Negative (unknown) (no (unknown) (unknown) Bedside Urine (units ( unknown) date) Urobilinogen unknown) 0.2 (unknown) (no (unknown) (unknown) Bedside Urine pH (units (unknown) date) 7.5 unknown) (unknown) (no (unknown) (unknown) Blood Pressure (units (unknown) date) 145/76 H 10/07/21 unknown) 15:27 (unknown) (no (unknown) (unknown) Blood Pressure (units (unknown) date) 145/76 H unknown) (unknown) (no (unknown) (unknown) Cardiovascular (units (unknown) date) unknown) (unknown) (no (unknown) (unknown) Cardiovascular: (units (unknown) date) Denies chest pain, unknown) Denies irregular heart rhythm, Denies (unknown) (no (unknown) (unknown) Chief complaint: (units (unknown) date) Skin/Abscess/Foreig unknown) n Body (unknown) (no (unknown) (unknown) Constitutional (units (unknown) date) unknown) (unknown) (no (unknown) (unknown) Constitutional: (units (unknown) date) Denies chills, unknown) Denies fatigue, Denies fever(s), Denies frequent (unknown) (no (unknown) (unknown) Course (units (unkno wn) date) unknown) (unknown) (no (unknown) (unknown) : 1985 (units (unknown) date) Acct:[id number] unknown) (unknown) (no (unknown) (unknown) Denies frequent (units (unknown) date) falls, Denies loss unknown) of vision, Denies numbness, Denies tingling (unknown) (no (unknown) (unknown) Denies loss of (units (unknown) date) vision unknown) (unknown) (no (unknown) (unknown) Denies numbness (units (unknown) date) and Denies tingling unknown) (unknown) (no (unknown) (unknown) ENT (units (unkno wn) date) unknown) (unknown) (no (unknown) (unknown) ER Physician: (units ( unknown) date) Sergio,Hyma P.A-C unknown) (unknown) (no (unknown) (unknown) Ears, Nose, Mouth, (units (unknown) date) and Throat: Denies unknown) change in voice, Denies dizziness, Denies (unknown) (no (unknown) (unknown) Endocrine (units (unkn own) date) unknown) (unknown) (no (unknown) (unknown) Endocrine: Denies (units (unknown) date) fatigue, Denies unknown) flushing and Denies palpitations (unknown) (no (unknown) (unknown) Esterase (units (unkno wn) date) unknown) (unknown) (no (unknown) (unknown) Exam (units (unkno wn) date) unknown) (unknown) (no (unknown) (unknown) Eyes (units (unkno wn) date) unknown) (unknown) (no (unknown) (unknown) Eyes: Denies (units (u nknown) date) change in vision, unknown) Denies eye discharge, Denies irritation and (unknown) (no (unknown) (unknown) Gastrointestinal (units (unknown) date) unknown) (unknown) (no (unknown) (unknown) Gastrointestinal: (units (unknown) date) Denies abdominal unknown) pain, Denies change in bowel habits, Denies (unknown) (no (unknown) (unknown) General (units (unkno wn) date) unknown) (unknown) (no (unknown) (unknown) Genitourinary (units ( unknown) date) unknown) (unknown) (no (unknown) (unknown) Genitourinary: (units (unknown) date) Denies hematuria, unknown) Denies flank pain, Denies urinary incontinence (unknown) (no (unknown) (unknown) HPI - (units (unkno wn) date) Skin/Abscess/Foreig unknown) n Bdy (unknown) (no (unknown) (unknown) Hematologic/Lympha (units (unknown) date) tic unknown) (unknown) (no (unknown) (unknown) Hematologic/Lympha (units (unknown) date) tic: Denies easy unknown) bruising (unknown) (no (unknown) (unknown) Initial Vital (units ( unknown) date) Signs unknown) (unknown) (no (unknown) (unknown) Initial Vital (units ( unknown) date) Signs: unknown) (unknown) (no (unknown) (unknown) Integumentary/Estelle (units (unknown) date) sts unknown) (unknown) (no (unknown) (unknown) Lab Data (units (unkno wn) date) unknown) (unknown) (no (unknown) (unknown) Labs: (units (unkno wn) date) unknown) (unknown) (no (unknown) (unknown) MDM - (units (unkno wn) date) Skin/Abscess/Foreig unknown) n Bdy (unknown) (no (unknown) (unknown) Mode of arrival: (units (unknown) date) Wheelchair unknown) (unknown) (no (unknown) (unknown) Musculoskeletal (units (unknown) date) unknown) (unknown) (no (unknown) (unknown) Musculoskeletal: (units (unknown) date) Denies back pain, unknown) Denies muscle weakness, Denies neck pain, (unknown) (no (unknown) (unknown) Neurologic (units (unk nown) date) unknown) (unknown) (no (unknown) (unknown) Neurologic: Denies (units (unknown) date) behavioral changes, unknown) Denies confusion, Denies dizziness, (unknown) (no (unknown) (unknown) Ordered: (units (unkno wn) date) unknown) (unknown) (no (unknown) (unknown) Orders (units (unkno wn) date) unknown) (unknown) (no (unknown) (unknown) Patient History (units (unknown) date) unknown) (unknown) (no (unknown) (unknown) Patient: (units (unkno wn) date) Zachery Phillips B unknown) MR#: [id number] (unknown) (no (unknown) (unknown) Psychiatric (units (un known) date) unknown) (unknown) (no (unknown) (unknown) Psychiatric: Denies (units (unknown) date) anxiety, Denies unknown) behavioral changes, Denies confusion, Denies (unknown) (no (unknown) (unknown) Pulse Oximetry (units (unknown) date) 100 10/07/21 unknown) 15:27 (unknown) (no (unknown) (unknown) Pulse Oximetry 100 (units (unknown) date) unknown) (unknown) (no (unknown) (unknown) Pulse Rate 94 H (units (unknown) date) 10/07/21 15:27 unknown) (unknown) (no (unknown) (unknown) Pulse Rate 94 H (units (unknown) date) unknown) (unknown) (no (unknown) (unknown) ROS Unobtainable: (units (unknown) date) All systems unknown) reviewed + are unremarkable except as noted in HPI (unknown) (no (unknown) (unknown) Respiratory (units (un known) date) unknown) (unknown) (no (unknown) (unknown) Respiratory Rate (units (unknown) date) 22 10/07/21 15:27 unknown) (unknown) (no (unknown) (unknown) Respiratory Rate (units (unknown) date) 22 unknown) (unknown) (no (unknown) (unknown) Respiratory: Denies (units (unknown) date) cough, Denies unknown) dyspnea, Denies dyspnea on exertion and Denies (unknown) (no (unknown) (unknown) Review of Systems (units (unknown) date) unknown) (unknown) (no (unknown) (unknown) Signed By: (units (unk nown) date) unknown) (unknown) (no (unknown) (unknown) Skin/Breast: (units (u nknown) date) Denies pruritus, unknown) Denies erythema, Reports rash and Denies wounds (unknown) (no (unknown) (unknown) Smoking Status: (units (unknown) date) Current every day unknown) smoker (unknown) (no (unknown) (unknown) Smoking Status: (units (unknown) date) Current every day unknown) smoker (unknown) (no (unknown) (unknown) Social History (units (unknown) date) unknown) (unknown) (no (unknown) (unknown) Source: patient (units (unknown) date) unknown) (unknown) (no (unknown) (unknown) Stated complaint: (units (unknown) date) COMPLICATION FROM unknown) MEDCATION FACE ISSUES VOMITING (unknown) (no (unknown) (unknown) Temperature 98.1 (units (unknown) date) F 10/07/21 15:27 unknown) (unknown) (no (unknown) (unknown) Temperature 98.1 F (units (unknown) date) unknown) (unknown) (no (unknown) (unknown) Time Seen by (units (u nknown) date) Provider: 10/07/21 unknown) 18:57 (unknown) (no (unknown) (unknown) Ur Culture (units (unk nown) date) Indicated? Cult unknown) not indicated (unknown) (no (unknown) (unknown) Urine Bacteria (units (unknown) date) None seen (None) unknown) (unknown) (no (unknown) (unknown) Urine Microscopic (units (unknown) date) Stat unknown) (unknown) (no (unknown) (unknown) Urine RBC None (units (unknown) date) seen (0-5/HPF) unknown) (unknown) (no (unknown) (unknown) Urine Specific (units (unknown) date) [place] 1.010 unknown) (unknown) (no (unknown) (unknown) Urine WBC None (units (unknown) date) seen (0-5/HPF) unknown) (unknown) (no (unknown) (unknown) Vital Signs (units (un known) date) unknown) (unknown) (no (unknown) (unknown) Vital signs: (units (u nknown) date) unknown) (unknown) (no (unknown) (unknown) and Denies (units (unk nown) date) orthopnea unknown) (unknown) (no (unknown) (unknown) and Denies urinary (units (unknown) date) urgency unknown) (unknown) (no (unknown) (unknown) and Denies (units (unk nown) date) weakness unknown) (unknown) (no (unknown) (unknown) and below (units (unkn own) date) unknown) (unknown) (no (unknown) (unknown) depression, Denies (units (unknown) date) homicidal ideation unknown) and Denies suicidal ideation (unknown) (no (unknown) (unknown) diarrhea, Denies (units (unknown) date) nausea and Denies unknown) vomiting (unknown) (no (unknown) (unknown) falls, Denies (units ( unknown) date) lethargy and Denies unknown) weakness (unknown) (no (unknown) (unknown) lightheadedness, (units (unknown) date) Denies unknown) palpitations, Denies dyspnea, Denies dyspnea on exertion (unknown) (no (unknown) (unknown) neck pain, Denies (units (unknown) date) sore throat and unknown) Denies throat swelling (unknown) (no (unknown) (unknown) wheezing (units (unkno wn) date) unknown) Result panel 3 (unknown) (no (unknown) (unknown) (no value) (units (unk nown) date) unknown) (unknown) (no (unknown) (unknown) Date of Service: (units (unknown) date) 10/07/21 unknown) (unknown) (no (unknown) (unknown) (no value) (units (unk nown) date) unknown) (unknown) (no (unknown) (unknown) <Electronically (units (unknown) date) signed by Annabelle unknown) P.A-C Sergio> (unknown) (no (unknown) (unknown) 10/07/21 193 (units ( unknown) date) unknown) (unknown) (no (unknown) (unknown) ED Orders (units (unkn own) date) unknown) (unknown) (no (unknown) (unknown) Emergency Report (units (unknown) date) unknown) (unknown) (no (unknown) (unknown) [facility] (units (unknown) date) [address] unknown) [place] [address] (unknown) (no (unknown) (unknown) Lab Results (units (un known) date) unknown) (unknown) (no (unknown) (unknown) Stop: 10/07/21 (units (unknown) date) 19:12 unknown) (unknown) (no (unknown) (unknown) Urine Dip (units (unkn own) date) unknown) (unknown) (no (unknown) (unknown) Vital Signs - 8 hr (units (unknown) date) unknown) (unknown) (no (unknown) (unknown) (no value) (units (unk nown) date) unknown) (unknown) (no (unknown) (unknown) 10/07/21 (units (unkno wn) date) Range/Units unknown) (unknown) (no (unknown) (unknown) 15:15 (units (unkno wn) date) unknown) (unknown) (no (unknown) (unknown) 10/07/21 (units (unkno wn) date) unknown) (unknown) (no (unknown) (unknown) Rash (units (unkno wn) date) unknown) (unknown) (no (unknown) (unknown) [id number] (units (unkno wn) date) unknown) (unknown) (no (unknown) (unknown) 10/07/21 15:15 (units (unknown) date) unknown) (unknown) (no (unknown) (unknown) 15:27 (units (unkno wn) date) unknown) (unknown) (no (unknown) (unknown) 36-year-old male (units (unknown) date) with past medical unknown) history presents to the ED with 1 day of (unknown) (no (unknown) (unknown) Activity (units (unkno wn) date) Restrictions/Additi unknown) onal Instructions: (unknown) (no (unknown) (unknown) Age/Sex: 36 / M (units (unknown) date) unknown) (unknown) (no (unknown) (unknown) Allergic/Immunolog (units (unknown) date) ic unknown) (unknown) (no (unknown) (unknown) Allergic/Immunolog (units (unknown) date) ic: Denies unknown) urticaria, Denies throat swelling and Denies (unknown) (no (unknown) (unknown) Amorphous Sediment (units (unknown) date) 3+ unknown) (unknown) (no (unknown) (unknown) Appearance: (units (un known) date) grossly normal unknown) (unknown) (no (unknown) (unknown) Auscultation: (units ( unknown) date) clear to unknown) auscultation bilaterally (unknown) (no (unknown) (unknown) Bedside Urine (units ( unknown) date) Bilirubin - unknown) Negative (unknown) (no (unknown) (unknown) Bedside Urine (units ( unknown) date) Glucose Negative unknown) (unknown) (no (unknown) (unknown) Bedside Urine (units ( unknown) date) Ketone - unknown) Negative (unknown) (no (unknown) (unknown) Bedside Urine (units ( unknown) date) Leukocytes unknown) +/- 15 (unknown) (no (unknown) (unknown) Bedside Urine (units ( unknown) date) Nitrite - unknown) Negative (unknown) (no (unknown) (unknown) Bedside Urine (units ( unknown) date) Occult Blood - unknown) Negative (unknown) (no (unknown) (unknown) Bedside Urine (units ( unknown) date) Protein - unknown) Negative (unknown) (no (unknown) (unknown) Bedside Urine (units ( unknown) date) Urobilinogen unknown) 0.2 (unknown) (no (unknown) (unknown) Bedside Urine pH (units (unknown) date) 7.5 unknown) (unknown) (no (unknown) (unknown) Blood Pressure (units (unknown) date) 145/76 H 05/02/22 unknown) 15:27 (unknown) (no (unknown) (unknown) Blood Pressure (units (unknown) date) 145/76 H unknown) (unknown) (no (unknown) (unknown) Cardio (units (unkno wn) date) unknown) (unknown) (no (unknown) (unknown) Cardiovascular (units (unknown) date) unknown) (unknown) (no (unknown) (unknown) Cardiovascular: (units (unknown) date) Denies chest pain, unknown) Denies irregular heart rhythm, Denies (unknown) (no (unknown) (unknown) Chief complaint: (units (unknown) date) Skin/Abscess/Foreig unknown) n Body (unknown) (no (unknown) (unknown) Clinical (units (unkno wn) date) Impression: unknown) (unknown) (no (unknown) (unknown) Const (units (unkno wn) date) unknown) (unknown) (no (unknown) (unknown) Constitutional (units (unknown) date) unknown) (unknown) (no (unknown) (unknown) Constitutional: (units (unknown) date) Denies chills, unknown) Denies fatigue, Denies fever(s), Denies frequent (unknown) (no (unknown) (unknown) Course (units (unkno wn) date) unknown) (unknown) (no (unknown) (unknown) : 1985 (units (unknown) date) Acct:[id number] unknown) (unknown) (no (unknown) (unknown) Denies frequent (units (unknown) date) falls, Denies loss unknown) of vision, Denies numbness, Denies tingling (unknown) (no (unknown) (unknown) Denies loss of (units (unknown) date) vision unknown) (unknown) (no (unknown) (unknown) Denies numbness (units (unknown) date) and Denies tingling unknown) (unknown) (no (unknown) (unknown) Departure (units (unkn own) date) unknown) (unknown) (no (unknown) (unknown) Dexamethasone (units ( unknown) date) (Dexamethasone 10 unknown) Mg/Ml Vial) 20 mg INJ INTRA-OP ONE (unknown) (no (unknown) (unknown) Discharge Plan (units (unknown) date) unknown) (unknown) (no (unknown) (unknown) Discontinued (units (u nknown) date) Medications unknown) (unknown) (no (unknown) (unknown) ENT (units (unkno wn) date) unknown) (unknown) (no (unknown) (unknown) ER Physician: (units ( unknown) date) Sergio,Hyma P.A-C unknown) (unknown) (no (unknown) (unknown) Ears, Nose, Mouth, (units (unknown) date) and Throat: Denies unknown) change in voice, Denies dizziness, Denies (unknown) (no (unknown) (unknown) Ears: hearing (units ( unknown) date) grossly normal unknown) bilaterally (unknown) (no (unknown) (unknown) Effort + (units (unkno wn) date) Inspection: normal unknown) respiratory effort (unknown) (no (unknown) (unknown) Endocrine (units (unkn own) date) unknown) (unknown) (no (unknown) (unknown) Endocrine: Denies (units (unknown) date) fatigue, Denies unknown) flushing and Denies palpitations (unknown) (no (unknown) (unknown) Esterase (units (unkno wn) date) unknown) (unknown) (no (unknown) (unknown) Exam (units (unkno wn) date) unknown) (unknown) (no (unknown) (unknown) Eyes (units (unkno wn) date) unknown) (unknown) (no (unknown) (unknown) Eyes: Denies (units (u nknown) date) change in vision, unknown) Denies eye discharge, Denies irritation and (unknown) (no (unknown) (unknown) Face and sinus: (units (unknown) date) normal facial exam unknown) (unknown) (no (unknown) (unknown) GI (units (unkno wn) date) unknown) (unknown) (no (unknown) (unknown) Gastrointestinal (units (unknown) date) unknown) (unknown) (no (unknown) (unknown) Gastrointestinal: (units (unknown) date) Denies abdominal unknown) pain, Denies change in bowel habits, Denies (unknown) (no (unknown) (unknown) General (units (unkno wn) date) unknown) (unknown) (no (unknown) (unknown) General: (units (unkno wn) date) cooperative, unknown) healthy appearing and comfortable (unknown) (no (unknown) (unknown) General: patient (units (unknown) date) alert, patient unknown) awake and patient oriented x3 (unknown) (no (unknown) (unknown) Genitourinary (units ( unknown) date) unknown) (unknown) (no (unknown) (unknown) Genitourinary: (units (unknown) date) Denies hematuria, unknown) Denies flank pain, Denies urinary incontinence (unknown) (no (unknown) (unknown) HENMT (units (unkno wn) date) unknown) (unknown) (no (unknown) (unknown) HPI - (units (unkno wn) date) Skin/Abscess/Foreig unknown) n Bdy (unknown) (no (unknown) (unknown) HPI narrative: (units (unknown) date) unknown) (unknown) (no (unknown) (unknown) Head: normal to (units (unknown) date) inspection and unknown) normocephalic (unknown) (no (unknown) (unknown) Hematologic/Lympha (units (unknown) date) tic unknown) (unknown) (no (unknown) (unknown) Hematologic/Lympha (units (unknown) date) tic: Denies easy unknown) bruising (unknown) (no (unknown) (unknown) History of Present (units (unknown) date) Illness unknown) (unknown) (no (unknown) (unknown) Initial Vital (units ( unknown) date) Signs unknown) (unknown) (no (unknown) (unknown) Initial Vital (units ( unknown) date) Signs: unknown) (unknown) (no (unknown) (unknown) Instructions: DI (units (unknown) date) for Rash unknown) (unknown) (no (unknown) (unknown) Integumentary/Grace (units (unknown) date) sts unknown) (unknown) (no (unknown) (unknown) Lab Data (units (unkno wn) date) unknown) (unknown) (no (unknown) (unknown) Labs: (units (unkno wn) date) unknown) (unknown) (no (unknown) (unknown) Lower half of the (units (unknown) date) phase with mild unknown) erythema, scaling. No signs of infection. (unknown) (no (unknown) (unknown) MDM - (units (unkno wn) date) Skin/Abscess/Foreig unknown) n Bdy (unknown) (no (unknown) (unknown) MDM Narrative (units ( unknown) date) unknown) (unknown) (no (unknown) (unknown) Medical decision (units (unknown) date) making narrative: unknown) (unknown) (no (unknown) (unknown) Mental Status: (units (unknown) date) mental status unknown) grossly normal (unknown) (no (unknown) (unknown) Mode of arrival: (units (unknown) date) Wheelchair unknown) (unknown) (no (unknown) (unknown) Mouth: oral (units (un known) date) mucosae normal unknown) (unknown) (no (unknown) (unknown) Musculoskeletal (units (unknown) date) unknown) (unknown) (no (unknown) (unknown) Musculoskeletal: (units (unknown) date) Denies back pain, unknown) Denies muscle weakness, Denies neck pain, (unknown) (no (unknown) (unknown) Neck (units (unkno wn) date) unknown) (unknown) (no (unknown) (unknown) Neck: normal (units (u nknown) date) visual inspection unknown) and full ROM (unknown) (no (unknown) (unknown) Neuro (units (unkno wn) date) unknown) (unknown) (no (unknown) (unknown) Neurologic (units (unk nown) date) unknown) (unknown) (no (unknown) (unknown) Neurologic: Denies (units (unknown) date) behavioral changes, unknown) Denies confusion, Denies dizziness, (unknown) (no (unknown) (unknown) Nose: external (units (unknown) date) nose normal unknown) (unknown) (no (unknown) (unknown) Oral mucosa (units (un known) date) appears normal. unknown) Poor dentition (unknown) (no (unknown) (unknown) Ordered: (units (unkno wn) date) unknown) (unknown) (no (unknown) (unknown) Orders (units (unkno wn) date) unknown) (unknown) (no (unknown) (unknown) Other: (units (unkno wn) date) unknown) (unknown) (no (unknown) (unknown) Palpation: soft (units (unknown) date) unknown) (unknown) (no (unknown) (unknown) Patient (units (unkno wn) date) Disposition: Home unknown) (unknown) (no (unknown) (unknown) Patient History (units (unknown) date) unknown) (unknown) (no (unknown) (unknown) Patient is (units (unk nown) date) wheelchair-bound unknown) due to cerebral palsy which is baseline (unknown) (no (unknown) (unknown) Patient: (units (unkno wn) date) Zachery Phillips B unknown) MR#: [id number] (unknown) (no (unknown) (unknown) Psych (units (unkno wn) date) unknown) (unknown) (no (unknown) (unknown) Psychiatric (units (un known) date) unknown) (unknown) (no (unknown) (unknown) Psychiatric: Denies (units (unknown) date) anxiety, Denies unknown) behavioral changes, Denies confusion, Denies (unknown) (no (unknown) (unknown) Pulse Oximetry (units (unknown) date) 100 10/07/21 unknown) 15:27 (unknown) (no (unknown) (unknown) Pulse Oximetry 100 (units (unknown) date) unknown) (unknown) (no (unknown) (unknown) Pulse Rate 94 H (units (unknown) date) 10/07/21 15:27 unknown) (unknown) (no (unknown) (unknown) Pulse Rate 94 H (units (unknown) date) unknown) (unknown) (no (unknown) (unknown) ROS Unobtainable: (units (unknown) date) All systems unknown) reviewed + are unremarkable except as noted in HPI (unknown) (no (unknown) (unknown) Rate: regular rate (units (unknown) date) unknown) (unknown) (no (unknown) (unknown) Resp (units (unkno wn) date) unknown) (unknown) (no (unknown) (unknown) Respiratory (units (un known) date) unknown) (unknown) (no (unknown) (unknown) Respiratory Rate (units (unknown) date) 22 10/07/21 15:27 unknown) (unknown) (no (unknown) (unknown) Respiratory Rate (units (unknown) date) 22 unknown) (unknown) (no (unknown) (unknown) Respiratory: Denies (units (unknown) date) cough, Denies unknown) dyspnea, Denies dyspnea on exertion and Denies (unknown) (no (unknown) (unknown) Review of Systems (units (unknown) date) unknown) (unknown) (no (unknown) (unknown) Rhythm: regular (units (unknown) date) rhythm unknown) (unknown) (no (unknown) (unknown) Signed By: (units (unk nown) date) unknown) (unknown) (no (unknown) (unknown) Skin (units (unkno wn) date) unknown) (unknown) (no (unknown) (unknown) Skin/Breast: (units (u nknown) date) Denies pruritus, unknown) Denies erythema, Reports rash and Denies wounds (unknown) (no (unknown) (unknown) Smoking Status: (units (unknown) date) Current every day unknown) smoker (unknown) (no (unknown) (unknown) Smoking Status: (units (unknown) date) Current every day unknown) smoker (unknown) (no (unknown) (unknown) Social History (units (unknown) date) (Reviewed 10/07/21 unknown) @ 19:27 by Annabelle Hill PA-C) (unknown) (no (unknown) (unknown) Source: patient (units (unknown) date) unknown) (unknown) (no (unknown) (unknown) Stated complaint: (units (unknown) date) COMPLICATION FROM unknown) MEDCATION FACE ISSUES VOMITING (unknown) (no (unknown) (unknown) Teeth and gingiva: (units (unknown) date) poor dentition unknown) (unknown) (no (unknown) (unknown) Temperature 98.1 (units (unknown) date) F 10/07/21 15:27 unknown) (unknown) (no (unknown) (unknown) Temperature 98.1 F (units (unknown) date) unknown) (unknown) (no (unknown) (unknown) Throat: posterior (units (unknown) date) oropharynx normal unknown) (unknown) (no (unknown) (unknown) Time Seen by (units (u nknown) date) Provider: 10/07/21 unknown) 18:57 (unknown) (no (unknown) (unknown) Ur Culture (units (unk nown) date) Indicated? Cult unknown) not indicated (unknown) (no (unknown) (unknown) Urine Bacteria (units (unknown) date) None seen (None) unknown) (unknown) (no (unknown) (unknown) Urine Microscopic (units (unknown) date) Stat unknown) (unknown) (no (unknown) (unknown) Urine RBC None (units (unknown) date) seen (0-5/HPF) unknown) (unknown) (no (unknown) (unknown) Urine Specific (units (unknown) date) [place] 1.010 unknown) (unknown) (no (unknown) (unknown) Urine WBC None (units (unknown) date) seen (0-5/HPF) unknown) (unknown) (no (unknown) (unknown) Vital Signs (units (un known) date) unknown) (unknown) (no (unknown) (unknown) Vital signs: (units (u nknown) date) unknown) (unknown) (no (unknown) (unknown) You were evaluated (units (unknown) date) for a facial rash unknown) following a dose of Suboxone. It is likely (unknown) (no (unknown) (unknown) a G tube due to (units (unknown) date) his cerebral palsy, unknown) and is unable to take p.o. medications. (unknown) (no (unknown) (unknown) and Denies (units (unk nown) date) orthopnea unknown) (unknown) (no (unknown) (unknown) and Denies urinary (units (unknown) date) urgency unknown) (unknown) (no (unknown) (unknown) and Denies (units (unk nown) date) weakness unknown) (unknown) (no (unknown) (unknown) and below (units (unkn own) date) unknown) (unknown) (no (unknown) (unknown) as soon as (units (unk nown) date) possible. Please unknown) discontinue the Suboxone. Return to the ED if you (unknown) (no (unknown) (unknown) depression, Denies (units (unknown) date) homicidal ideation unknown) and Denies suicidal ideation (unknown) (no (unknown) (unknown) diarrhea, Denies (units (unknown) date) nausea and Denies unknown) vomiting (unknown) (no (unknown) (unknown) due to cerebral (units (unknown) date) palsy, after his unknown) 1st does started developing a itching, burning (unknown) (no (unknown) (unknown) facial rash. (units (u nknown) date) Concern for unknown) allergic reaction versus rash. Will treat with IM (unknown) (no (unknown) (unknown) facial rash. (units (u nknown) date) Patient states that unknown) he was started on Suboxone for muscular pain (unknown) (no (unknown) (unknown) falls, Denies (units ( unknown) date) lethargy and Denies unknown) weakness (unknown) (no (unknown) (unknown) have any trouble (units (unknown) date) breathing, throat unknown) tightness, throat swelling, wheezing, nausea, (unknown) (no (unknown) (unknown) injection of (units (u nknown) date) dexamethasone which unknown) is a steroid. Please follow-up with your PCP (unknown) (no (unknown) (unknown) injection of (units (u nknown) date) dexamethasone. unknown) Patient will follow-up with his PCP tomorrow. ED (unknown) (no (unknown) (unknown) lightheadedness, (units (unknown) date) Denies unknown) palpitations, Denies dyspnea, Denies dyspnea on exertion (unknown) (no (unknown) (unknown) neck pain, Denies (units (unknown) date) sore throat and unknown) Denies throat swelling (unknown) (no (unknown) (unknown) pain. Patient was (units (unknown) date) seen at [facility] unknown) General earlier today for the same complaint, (unknown) (no (unknown) (unknown) rash on the lower (units (unknown) date) half of his face unknown) bilaterally. Patient denies throat swelling, (unknown) (no (unknown) (unknown) return precautions (units (unknown) date) discussed with unknown) patient. Patient verbalizes understanding. (unknown) (no (unknown) (unknown) steroid cream was (units (unknown) date) applied to his face unknown) and he was discharged. Patient states (unknown) (no (unknown) (unknown) that his symptoms (units (unknown) date) have not improved unknown) since then. Patient is also almost NPO with (unknown) (no (unknown) (unknown) that your symptoms (units (unknown) date) were caused due to unknown) an allergic reaction. You were given an (unknown) (no (unknown) (unknown) trouble breathing, (units (unknown) date) shortness of unknown) breath, wheezing, nausea, vomiting, abdominal (unknown) (no (unknown) (unknown) vomiting. (units (unkn own) date) unknown) (unknown) (no (unknown) (unknown) wheezing (units (unkno wn) date) unknown) Result panel 4 (unknown) (no (unknown) (unknown) (no value) (units (unk nown) date) unknown) (unknown) (no (unknown) (unknown) Date of Service: (units (unknown) date) 10/07/21 unknown) (unknown) (no (unknown) (unknown) (no value) (units (unk nown) date) unknown) (unknown) (no (unknown) (unknown) <Electronically (units (unknown) date) signed by Annabelle unknown) P.A-C Sergio> (unknown) (no (unknown) (unknown) ADDENDUM (units (u nknown) date) unknown) (unknown) (no (unknown) (unknown) 10/07/21 193 (units ( unknown) date) unknown) (unknown) (no (unknown) (unknown) 10/07/21 194 (units ( unknown) date) unknown) (unknown) (no (unknown) (unknown) ED Orders (units (unkn own) date) unknown) (unknown) (no (unknown) (unknown) Emergency Report (units (unknown) date) unknown) (unknown) (no (unknown) (unknown) [facility] (units (unknown) date) [address] unknown) [place] [address] (unknown) (no (unknown) (unknown) Lab Results (units (un known) date) unknown) (unknown) (no (unknown) (unknown) Stop: 10/07/21 (units (unknown) date) 19:12 unknown) (unknown) (no (unknown) (unknown) Urine Dip (units (unkn own) date) unknown) (unknown) (no (unknown) (unknown) Vital Signs - 8 hr (units (unknown) date) unknown) (unknown) (no (unknown) (unknown) (no value) (units (unk nown) date) unknown) (unknown) (no (unknown) (unknown) 10/07/21 (units (unkno wn) date) Range/Units unknown) (unknown) (no (unknown) (unknown) 15:15 (units (unkno wn) date) unknown) (unknown) (no (unknown) (unknown) 10/07/21 (units (unkno wn) date) unknown) (unknown) (no (unknown) (unknown) Rash (units (unkno wn) date) unknown) (unknown) (no (unknown) (unknown) [id number] (units (unkno wn) date) unknown) (unknown) (no (unknown) (unknown) 10/07/21 15:15 (units (unknown) date) unknown) (unknown) (no (unknown) (unknown) 15:27 (units (unkno wn) date) unknown) (unknown) (no (unknown) (unknown) 36-year-old male (units (unknown) date) with past medical unknown) history presents to the ED with 1 day of (unknown) (no (unknown) (unknown) Activity (units (unkno wn) date) Restrictions/Additi unknown) onal Instructions: (unknown) (no (unknown) (unknown) Addendum (units (unkno wn) date) Documented By: unknown) Annabelle Hill (unknown) (no (unknown) (unknown) Addendum Signed (units (unknown) date) By: unknown) <Electronically signed by Annabelle Hill> (unknown) (no (unknown) (unknown) Age/Sex: 36 / M (units (unknown) date) unknown) (unknown) (no (unknown) (unknown) Allergic/Immunolog (units (unknown) date) ic unknown) (unknown) (no (unknown) (unknown) Allergic/Immunolog (units (unknown) date) ic: Denies unknown) urticaria, Denies throat swelling and Denies (unknown) (no (unknown) (unknown) Amorphous Sediment (units (unknown) date) 3+ unknown) (unknown) (no (unknown) (unknown) Appearance: (units (un known) date) grossly normal unknown) (unknown) (no (unknown) (unknown) Auscultation: (units ( unknown) date) clear to unknown) auscultation bilaterally (unknown) (no (unknown) (unknown) Bedside Urine (units ( unknown) date) Bilirubin - unknown) Negative (unknown) (no (unknown) (unknown) Bedside Urine (units ( unknown) date) Glucose Negative unknown) (unknown) (no (unknown) (unknown) Bedside Urine (units ( unknown) date) Ketone - unknown) Negative (unknown) (no (unknown) (unknown) Bedside Urine (units ( unknown) date) Leukocytes unknown) +/- 15 (unknown) (no (unknown) (unknown) Bedside Urine (units ( unknown) date) Nitrite - unknown) Negative (unknown) (no (unknown) (unknown) Bedside Urine (units ( unknown) date) Occult Blood - unknown) Negative (unknown) (no (unknown) (unknown) Bedside Urine (units ( unknown) date) Protein - unknown) Negative (unknown) (no (unknown) (unknown) Bedside Urine (units ( unknown) date) Urobilinogen unknown) 0.2 (unknown) (no (unknown) (unknown) Bedside Urine pH (units (unknown) date) 7.5 unknown) (unknown) (no (unknown) (unknown) Blood Pressure (units (unknown) date) 145/76 H 10/07/21 unknown) 15:27 (unknown) (no (unknown) (unknown) Blood Pressure (units (unknown) date) 145/76 H unknown) (unknown) (no (unknown) (unknown) Cardio (units (unkno wn) date) unknown) (unknown) (no (unknown) (unknown) Cardiovascular (units (unknown) date) unknown) (unknown) (no (unknown) (unknown) Cardiovascular: (units (unknown) date) Denies chest pain, unknown) Denies irregular heart rhythm, Denies (unknown) (no (unknown) (unknown) Chief complaint: (units (unknown) date) Skin/Abscess/Foreig unknown) n Body (unknown) (no (unknown) (unknown) Clinical (units (unkno wn) date) Impression: unknown) (unknown) (no (unknown) (unknown) Const (units (unkno wn) date) unknown) (unknown) (no (unknown) (unknown) Constitutional (units (unknown) date) unknown) (unknown) (no (unknown) (unknown) Constitutional: (units (unknown) date) Denies chills, unknown) Denies fatigue, Denies fever(s), Denies frequent (unknown) (no (unknown) (unknown) Course (units (unkno wn) date) unknown) (unknown) (no (unknown) (unknown) : 1985 (units (unknown) date) Acct:[id number] unknown) (unknown) (no (unknown) (unknown) Denies frequent (units (unknown) date) falls, Denies loss unknown) of vision, Denies numbness, Denies tingling (unknown) (no (unknown) (unknown) Denies loss of (units (unknown) date) vision unknown) (unknown) (no (unknown) (unknown) Denies numbness (units (unknown) date) and Denies tingling unknown) (unknown) (no (unknown) (unknown) Departure (units (unkn own) date) unknown) (unknown) (no (unknown) (unknown) Dexamethasone (units ( unknown) date) (Dexamethasone 10 unknown) Mg/Ml Vial) 20 mg INJ INTRA-OP ONE (unknown) (no (unknown) (unknown) Discharge Plan (units (unknown) date) unknown) (unknown) (no (unknown) (unknown) Discontinued (units (u nknown) date) Medications unknown) (unknown) (no (unknown) (unknown) ENT (units (unkno wn) date) unknown) (unknown) (no (unknown) (unknown) ER Physician: (units ( unknown) date) Sergio,Hyma P.A-C unknown) (unknown) (no (unknown) (unknown) Ears, Nose, Mouth, (units (unknown) date) and Throat: Denies unknown) change in voice, Denies dizziness, Denies (unknown) (no (unknown) (unknown) Ears: hearing (units ( unknown) date) grossly normal unknown) bilaterally (unknown) (no (unknown) (unknown) Effort + (units (unkno wn) date) Inspection: normal unknown) respiratory effort (unknown) (no (unknown) (unknown) Endocrine (units (unkn own) date) unknown) (unknown) (no (unknown) (unknown) Endocrine: Denies (units (unknown) date) fatigue, Denies unknown) flushing and Denies palpitations (unknown) (no (unknown) (unknown) Esterase (units (unkno wn) date) unknown) (unknown) (no (unknown) (unknown) Exam (units (unkno wn) date) unknown) (unknown) (no (unknown) (unknown) Eyes (units (unkno wn) date) unknown) (unknown) (no (unknown) (unknown) Eyes: Denies (units (u nknown) date) change in vision, unknown) Denies eye discharge, Denies irritation and (unknown) (no (unknown) (unknown) Face and sinus: (units (unknown) date) normal facial exam unknown) (unknown) (no (unknown) (unknown) GI (units (unkno wn) date) unknown) (unknown) (no (unknown) (unknown) Gastrointestinal (units (unknown) date) unknown) (unknown) (no (unknown) (unknown) Gastrointestinal: (units (unknown) date) Denies abdominal unknown) pain, Denies change in bowel habits, Denies (unknown) (no (unknown) (unknown) General (units (unkno wn) date) unknown) (unknown) (no (unknown) (unknown) General: (units (unkno wn) date) cooperative, unknown) healthy appearing and comfortable (unknown) (no (unknown) (unknown) General: patient (units (unknown) date) alert, patient unknown) awake and patient oriented x3 (unknown) (no (unknown) (unknown) Genitourinary (units ( unknown) date) unknown) (unknown) (no (unknown) (unknown) Genitourinary: (units (unknown) date) Denies hematuria, unknown) Denies flank pain, Denies urinary incontinence (unknown) (no (unknown) (unknown) HENMT (units (unkno wn) date) unknown) (unknown) (no (unknown) (unknown) HPI - (units (unkno wn) date) Skin/Abscess/Foreig unknown) n Bdy (unknown) (no (unknown) (unknown) HPI narrative: (units (unknown) date) unknown) (unknown) (no (unknown) (unknown) Head: normal to (units (unknown) date) inspection and unknown) normocephalic (unknown) (no (unknown) (unknown) Hematologic/Lympha (units (unknown) date) tic unknown) (unknown) (no (unknown) (unknown) Hematologic/Lympha (units (unknown) date) tic: Denies easy unknown) bruising (unknown) (no (unknown) (unknown) History of Present (units (unknown) date) Illness unknown) (unknown) (no (unknown) (unknown) Initial Vital (units ( unknown) date) Signs unknown) (unknown) (no (unknown) (unknown) Initial Vital (units ( unknown) date) Signs: unknown) (unknown) (no (unknown) (unknown) Instructions: DI (units (unknown) date) for Rash unknown) (unknown) (no (unknown) (unknown) Integumentary/Grace (units (unknown) date) sts unknown) (unknown) (no (unknown) (unknown) Lab Data (units (unkno wn) date) unknown) (unknown) (no (unknown) (unknown) Labs: (units (unkno wn) date) unknown) (unknown) (no (unknown) (unknown) Lower half of the (units (unknown) date) phase with mild unknown) erythema, scaling. No signs of infection. (unknown) (no (unknown) (unknown) MDM - (units (unkno wn) date) Skin/Abscess/Foreig unknown) n Bdy (unknown) (no (unknown) (unknown) MDM Narrative (units ( unknown) date) unknown) (unknown) (no (unknown) (unknown) Medical decision (units (unknown) date) making narrative: unknown) (unknown) (no (unknown) (unknown) Mental Status: (units (unknown) date) mental status unknown) grossly normal (unknown) (no (unknown) (unknown) Mode of arrival: (units (unknown) date) Wheelchair unknown) (unknown) (no (unknown) (unknown) Mouth: oral (units (un known) date) mucosae normal unknown) (unknown) (no (unknown) (unknown) Musculoskeletal (units (unknown) date) unknown) (unknown) (no (unknown) (unknown) Musculoskeletal: (units (unknown) date) Denies back pain, unknown) Denies muscle weakness, Denies neck pain, (unknown) (no (unknown) (unknown) Neck (units (unkno wn) date) unknown) (unknown) (no (unknown) (unknown) Neck: normal (units (u nknown) date) visual inspection unknown) and full ROM (unknown) (no (unknown) (unknown) Neuro (units (unkno wn) date) unknown) (unknown) (no (unknown) (unknown) Neurologic (units (unk nown) date) unknown) (unknown) (no (unknown) (unknown) Neurologic: Denies (units (unknown) date) behavioral changes, unknown) Denies confusion, Denies dizziness, (unknown) (no (unknown) (unknown) Nose: external (units (unknown) date) nose normal unknown) (unknown) (no (unknown) (unknown) Oral mucosa (units (un known) date) appears normal. unknown) Poor dentition (unknown) (no (unknown) (unknown) Ordered: (units (unkno wn) date) unknown) (unknown) (no (unknown) (unknown) Orders (units (unkno wn) date) unknown) (unknown) (no (unknown) (unknown) Other: (units (unkno wn) date) unknown) (unknown) (no (unknown) (unknown) Palpation: soft (units (unknown) date) unknown) (unknown) (no (unknown) (unknown) Patient (units (unkno wn) date) Disposition: Home unknown) (unknown) (no (unknown) (unknown) Patient History (units (unknown) date) unknown) (unknown) (no (unknown) (unknown) Patient is (units (unk nown) date) wheelchair-bound unknown) due to cerebral palsy which is baseline (unknown) (no (unknown) (unknown) Patient was not (units (unknown) date) given unknown) dexamethasone. Patient was sent home with a prescription (unknown) (no (unknown) (unknown) Patient: (units (unkno wn) date) Zachery Phillips B unknown) MR#: [id number] (unknown) (no (unknown) (unknown) Psych (units (unkno wn) date) unknown) (unknown) (no (unknown) (unknown) Psychiatric (units (un known) date) unknown) (unknown) (no (unknown) (unknown) Psychiatric: Denies (units (unknown) date) anxiety, Denies unknown) behavioral changes, Denies confusion, Denies (unknown) (no (unknown) (unknown) Pulse Oximetry (units (unknown) date) 100 10/07/21 unknown) 15:27 (unknown) (no (unknown) (unknown) Pulse Oximetry 100 (units (unknown) date) unknown) (unknown) (no (unknown) (unknown) Pulse Rate 94 H (units (unknown) date) 10/07/21 15:27 unknown) (unknown) (no (unknown) (unknown) Pulse Rate 94 H (units (unknown) date) unknown) (unknown) (no (unknown) (unknown) ROS Unobtainable: (units (unknown) date) All systems unknown) reviewed + are unremarkable except as noted in HPI (unknown) (no (unknown) (unknown) Rate: regular rate (units (unknown) date) unknown) (unknown) (no (unknown) (unknown) Resp (units (unkno wn) date) unknown) (unknown) (no (unknown) (unknown) Respiratory (units (un known) date) unknown) (unknown) (no (unknown) (unknown) Respiratory Rate (units (unknown) date) 22 10/07/21 15:27 unknown) (unknown) (no (unknown) (unknown) Respiratory Rate (units (unknown) date) 22 unknown) (unknown) (no (unknown) (unknown) Respiratory: Denies (units (unknown) date) cough, Denies unknown) dyspnea, Denies dyspnea on exertion and Denies (unknown) (no (unknown) (unknown) Review of Systems (units (unknown) date) unknown) (unknown) (no (unknown) (unknown) Rhythm: regular (units (unknown) date) rhythm unknown) (unknown) (no (unknown) (unknown) Signed By: (units (unk nown) date) unknown) (unknown) (no (unknown) (unknown) Skin (units (unkno wn) date) unknown) (unknown) (no (unknown) (unknown) Skin/Breast: (units (u nknown) date) Denies pruritus, unknown) Denies erythema, Reports rash and Denies wounds (unknown) (no (unknown) (unknown) Smoking Status: (units (unknown) date) Current every day unknown) smoker (unknown) (no (unknown) (unknown) Smoking Status: (units (unknown) date) Current every day unknown) smoker (unknown) (no (unknown) (unknown) Social History (units (unknown) date) (Reviewed 10/07/21 unknown) @ 19:27 by Annabelle Hill PA-C) (unknown) (no (unknown) (unknown) Source: patient (units (unknown) date) unknown) (unknown) (no (unknown) (unknown) Stated complaint: (units (unknown) date) COMPLICATION FROM unknown) MEDCATION FACE ISSUES VOMITING (unknown) (no (unknown) (unknown) Teeth and gingiva: (units (unknown) date) poor dentition unknown) (unknown) (no (unknown) (unknown) Temperature 98.1 (units (unknown) date) F 10/07/21 15:27 unknown) (unknown) (no (unknown) (unknown) Temperature 98.1 F (units (unknown) date) unknown) (unknown) (no (unknown) (unknown) Throat: posterior (units (unknown) date) oropharynx normal unknown) (unknown) (no (unknown) (unknown) Time Seen by (units (u nknown) date) Provider: 10/07/21 unknown) 18:57 (unknown) (no (unknown) (unknown) Ur Culture (units (unk nown) date) Indicated? Cult unknown) not indicated (unknown) (no (unknown) (unknown) Urine Bacteria (units (unknown) date) None seen (None) unknown) (unknown) (no (unknown) (unknown) Urine Microscopic (units (unknown) date) Stat unknown) (unknown) (no (unknown) (unknown) Urine RBC None (units (unknown) date) seen (0-5/HPF) unknown) (unknown) (no (unknown) (unknown) Urine Specific (units (unknown) date) [place] 1.010 unknown) (unknown) (no (unknown) (unknown) Urine WBC None (units (unknown) date) seen (0-5/HPF) unknown) (unknown) (no (unknown) (unknown) Vital Signs (units (un known) date) unknown) (unknown) (no (unknown) (unknown) Vital signs: (units (u nknown) date) unknown) (unknown) (no (unknown) (unknown) You were evaluated (units (unknown) date) for a facial rash unknown) following a dose of Suboxone. It is likely (unknown) (no (unknown) (unknown) a G tube due to (units (unknown) date) his cerebral palsy, unknown) and is unable to take p.o. medications. (unknown) (no (unknown) (unknown) and Denies (units (unk nown) date) orthopnea unknown) (unknown) (no (unknown) (unknown) and Denies urinary (units (unknown) date) urgency unknown) (unknown) (no (unknown) (unknown) and Denies (units (unk nown) date) weakness unknown) (unknown) (no (unknown) (unknown) and below (units (unkn own) date) unknown) (unknown) (no (unknown) (unknown) as soon as (units (unk nown) date) possible. Please unknown) discontinue the Suboxone. Return to the ED if you (unknown) (no (unknown) (unknown) depression, Denies (units (unknown) date) homicidal ideation unknown) and Denies suicidal ideation (unknown) (no (unknown) (unknown) diarrhea, Denies (units (unknown) date) nausea and Denies unknown) vomiting (unknown) (no (unknown) (unknown) due to cerebral (units (unknown) date) palsy, after his unknown) 1st does started developing a itching, burning (unknown) (no (unknown) (unknown) facial rash. (units (u nknown) date) Concern for unknown) allergic reaction versus rash. Will treat with IM (unknown) (no (unknown) (unknown) facial rash. (units (u nknown) date) Patient states that unknown) he was started on Suboxone for muscular pain (unknown) (no (unknown) (unknown) falls, Denies (units ( unknown) date) lethargy and Denies unknown) weakness (unknown) (no (unknown) (unknown) for prednisone to (units (unknown) date) use through his unknown) G-tube. (unknown) (no (unknown) (unknown) have any trouble (units (unknown) date) breathing, throat unknown) tightness, throat swelling, wheezing, nausea, (unknown) (no (unknown) (unknown) injection of (units (u nknown) date) dexamethasone which unknown) is a steroid. Please follow-up with your PCP (unknown) (no (unknown) (unknown) injection of (units (u nknown) date) dexamethasone. unknown) Patient will follow-up with his PCP tomorrow. ED (unknown) (no (unknown) (unknown) lightheadedness, (units (unknown) date) Denies unknown) palpitations, Denies dyspnea, Denies dyspnea on exertion (unknown) (no (unknown) (unknown) neck pain, Denies (units (unknown) date) sore throat and unknown) Denies throat swelling (unknown) (no (unknown) (unknown) pain. Patient was (units (unknown) date) seen at [facility] unknown) General earlier today for the same complaint, (unknown) (no (unknown) (unknown) rash on the lower (units (unknown) date) half of his face unknown) bilaterally. Patient denies throat swelling, (unknown) (no (unknown) (unknown) return precautions (units (unknown) date) discussed with unknown) patient. Patient verbalizes understanding. (unknown) (no (unknown) (unknown) steroid cream was (units (unknown) date) applied to his face unknown) and he was discharged. Patient states (unknown) (no (unknown) (unknown) that his symptoms (units (unknown) date) have not improved unknown) since then. Patient is also almost NPO with (unknown) (no (unknown) (unknown) that your symptoms (units (unknown) date) were caused due to unknown) an allergic reaction. You were given an (unknown) (no (unknown) (unknown) trouble breathing, (units (unknown) date) shortness of unknown) breath, wheezing, nausea, vomiting, abdominal (unknown) (no (unknown) (unknown) vomiting. (units (unkn own) date) unknown) (unknown) (no (unknown) (unknown) wheezing (units (unkno wn) date) unknown) Result panel 5 (unknown) (no date) (unknown) (unknown) 3+ (units (unkn own) unknown) (unknown) (no date) (unknown) (unknown) Cult Not (units (unkn own) Indicated unknown) (unknown) (no date) (unknown) (unknown) None Seen (units (unk nown) unknown) (unknown) (no date) (unknown) (unknown) None Seen (units (unk nown) unknown) (unknown) (no date) (unknown) (unknown) None Seen (units (unk nown) unknown) Result panel 6 (unknown) (no (unknown) (unknown) (no value) (units (unk nown) date) unknown) (unknown) (no (unknown) (unknown) Date of Service: (units (unknown) date) 10/07/21 unknown) (unknown) (no (unknown) (unknown) (no value) (units (unk nown) date) unknown) (unknown) (no (unknown) (unknown) <Electronically (units (unknown) date) signed by Arabella unknown) Tia SteelOJose> (unknown) (no (unknown) (unknown) <Electronically (units (unknown) date) signed by Annabelle unknown) P.A-C Sergio> (unknown) (no (unknown) (unknown) ADDENDUM (units (u nknown) date) unknown) (unknown) (no (unknown) (unknown) 10/07/21 193 (units ( unknown) date) unknown) (unknown) (no (unknown) (unknown) 10/07/21 1946 (units ( unknown) date) unknown) (unknown) (no (unknown) (unknown) 10/09/21 0800 (units ( unknown) date) unknown) (unknown) (no (unknown) (unknown) 40 mg PO DAILY 5 (units (unknown) date) Days Qty: 10 0RF unknown) (unknown) (no (unknown) (unknown) Documented by: (units (unknown) date) [email or web address] unknown) (unknown) (no (unknown) (unknown) Emergency Report (units (unknown) date) unknown) (unknown) (no (unknown) (unknown) [facility] (units (unknown) date) [address] unknown) [place] [address] (unknown) (no (unknown) (unknown) Lab Results (units (un known) date) unknown) (unknown) (no (unknown) (unknown) Last Admin: (units (un known) date) 10/07/21 19:38 unknown) Dose: Not Given (unknown) (no (unknown) (unknown) Previous Rx's (units ( unknown) date) unknown) (unknown) (no (unknown) (unknown) Stop: 10/07/21 (units (unknown) date) 19:12 unknown) (unknown) (no (unknown) (unknown) Urine Dip (units (unkn own) date) unknown) (unknown) (no (unknown) (unknown) Vital Signs - 8 hr (units (unknown) date) unknown) (unknown) (no (unknown) (unknown) (no value) (units (unk nown) date) unknown) (unknown) (no (unknown) (unknown) 10/07/21 (units (unkno wn) date) Range/Units unknown) (unknown) (no (unknown) (unknown) 15:15 (units (unkno wn) date) unknown) (unknown) (no (unknown) (unknown) prednisone 20 mg (units (unknown) date) tablet unknown) (unknown) (no (unknown) (unknown) 10/07/21 (units (unkno wn) date) unknown) (unknown) (no (unknown) (unknown) Medication (units (unk nown) date) Instructions unknown) Recorded (unknown) (no (unknown) (unknown) Rash (units (unkno wn) date) unknown) (unknown) (no (unknown) (unknown) <Arabella Steel, (units (unknown) date) DO - Last Filed: unknown) 10/09/21 08:00> (unknown) (no (unknown) (unknown) <Annabelle Hill PA-C (units (unknown) date) - Last Filed: unknown) 10/07/21 19:46> (unknown) (no (unknown) (unknown) [id number] (units (unkno wn) date) unknown) (unknown) (no (unknown) (unknown) 15:27 (units (unkno wn) date) unknown) (unknown) (no (unknown) (unknown) 36-year-old male (units (unknown) date) with past medical unknown) history presents to the ED with 1 day of (unknown) (no (unknown) (unknown) Activity (units (unkno wn) date) Restrictions/Additi unknown) onal Instructions: (unknown) (no (unknown) (unknown) Addendum (units (unkno wn) date) Documented By: unknown) Annabelle Hill (unknown) (no (unknown) (unknown) Addendum Signed (units (unknown) date) By: unknown) <Electronically signed by Annabelle Hill> (unknown) (no (unknown) (unknown) Age/Sex: 36 / M (units (unknown) date) unknown) (unknown) (no (unknown) (unknown) Allergic/Immunolog (units (unknown) date) ic unknown) (unknown) (no (unknown) (unknown) Allergic/Immunolog (units (unknown) date) ic: Denies unknown) urticaria, Denies throat swelling and Denies (unknown) (no (unknown) (unknown) Amorphous Sediment (units (unknown) date) 3+ unknown) (unknown) (no (unknown) (unknown) Appearance: (units (un known) date) grossly normal unknown) (unknown) (no (unknown) (unknown) Auscultation: (units ( unknown) date) clear to unknown) auscultation bilaterally (unknown) (no (unknown) (unknown) Bedside Urine (units ( unknown) date) Bilirubin - unknown) Negative (unknown) (no (unknown) (unknown) Bedside Urine (units ( unknown) date) Glucose Negative unknown) (unknown) (no (unknown) (unknown) Bedside Urine (units ( unknown) date) Ketone - unknown) Negative (unknown) (no (unknown) (unknown) Bedside Urine (units ( unknown) date) Leukocytes unknown) +/- 15 (unknown) (no (unknown) (unknown) Bedside Urine (units ( unknown) date) Nitrite - unknown) Negative (unknown) (no (unknown) (unknown) Bedside Urine (units ( unknown) date) Occult Blood - unknown) Negative (unknown) (no (unknown) (unknown) Bedside Urine (units ( unknown) date) Protein - unknown) Negative (unknown) (no (unknown) (unknown) Bedside Urine (units ( unknown) date) Urobilinogen unknown) 0.2 (unknown) (no (unknown) (unknown) Bedside Urine pH (units (unknown) date) 7.5 unknown) (unknown) (no (unknown) (unknown) Blood Pressure (units (unknown) date) 145/76 H 10/07/21 unknown) 15:27 (unknown) (no (unknown) (unknown) Blood Pressure (units (unknown) date) 145/76 H unknown) (unknown) (no (unknown) (unknown) Cardio (units (unkno wn) date) unknown) (unknown) (no (unknown) (unknown) Cardiovascular (units (unknown) date) unknown) (unknown) (no (unknown) (unknown) Cardiovascular: (units (unknown) date) Denies chest pain, unknown) Denies irregular heart rhythm, Denies (unknown) (no (unknown) (unknown) Chief complaint: (units (unknown) date) Skin/Abscess/Foreig unknown) n Body (unknown) (no (unknown) (unknown) Clinical (units (unkno wn) date) Impression: unknown) (unknown) (no (unknown) (unknown) Const (units (unkno wn) date) unknown) (unknown) (no (unknown) (unknown) Constitutional (units (unknown) date) unknown) (unknown) (no (unknown) (unknown) Constitutional: (units (unknown) date) Denies chills, unknown) Denies fatigue, Denies fever(s), Denies frequent (unknown) (no (unknown) (unknown) Cosign (units (unkno wn) date) unknown) (unknown) (no (unknown) (unknown) Course (units (unkno wn) date) unknown) (unknown) (no (unknown) (unknown) : 1985 (units (unknown) date) Acct:[id number] unknown) (unknown) (no (unknown) (unknown) Denies frequent (units (unknown) date) falls, Denies loss unknown) of vision, Denies numbness, Denies tingling (unknown) (no (unknown) (unknown) Denies loss of (units (unknown) date) vision unknown) (unknown) (no (unknown) (unknown) Denies numbness (units (unknown) date) and Denies tingling unknown) (unknown) (no (unknown) (unknown) Departure (units (unkn own) date) unknown) (unknown) (no (unknown) (unknown) Dexamethasone (units ( unknown) date) (Dexamethasone 10 unknown) Mg/Ml Vial) 20 mg INJ INTRA-OP ONE (unknown) (no (unknown) (unknown) Discharge Plan (units (unknown) date) unknown) (unknown) (no (unknown) (unknown) Discontinued (units (u nknown) date) Medications unknown) (unknown) (no (unknown) (unknown) ED Attending (units (u nknown) date) Cosignature unknown) Attestation: (unknown) (no (unknown) (unknown) ENT (units (unkno wn) date) unknown) (unknown) (no (unknown) (unknown) ER Physician: (units ( unknown) date) Sergio,Hyma P.A-C unknown) (unknown) (no (unknown) (unknown) Ears, Nose, Mouth, (units (unknown) date) and Throat: Denies unknown) change in voice, Denies dizziness, Denies (unknown) (no (unknown) (unknown) Ears: hearing (units ( unknown) date) grossly normal unknown) bilaterally (unknown) (no (unknown) (unknown) Effort + (units (unkno wn) date) Inspection: normal unknown) respiratory effort (unknown) (no (unknown) (unknown) Endocrine (units (unkn own) date) unknown) (unknown) (no (unknown) (unknown) Endocrine: Denies (units (unknown) date) fatigue, Denies unknown) flushing and Denies palpitations (unknown) (no (unknown) (unknown) Esterase (units (unkno wn) date) unknown) (unknown) (no (unknown) (unknown) Exam (units (unkno wn) date) unknown) (unknown) (no (unknown) (unknown) Eyes (units (unkno wn) date) unknown) (unknown) (no (unknown) (unknown) Eyes: Denies (units (u nknown) date) change in vision, unknown) Denies eye discharge, Denies irritation and (unknown) (no (unknown) (unknown) Face and sinus: (units (unknown) date) normal facial exam unknown) (unknown) (no (unknown) (unknown) GI (units (unkno wn) date) unknown) (unknown) (no (unknown) (unknown) Gastrointestinal (units (unknown) date) unknown) (unknown) (no (unknown) (unknown) Gastrointestinal: (units (unknown) date) Denies abdominal unknown) pain, Denies change in bowel habits, Denies (unknown) (no (unknown) (unknown) General (units (unkno wn) date) unknown) (unknown) (no (unknown) (unknown) General: (units (unkno wn) date) cooperative, unknown) healthy appearing and comfortable (unknown) (no (unknown) (unknown) General: patient (units (unknown) date) alert, patient unknown) awake and patient oriented x3 (unknown) (no (unknown) (unknown) Genitourinary (units ( unknown) date) unknown) (unknown) (no (unknown) (unknown) Genitourinary: (units (unknown) date) Denies hematuria, unknown) Denies flank pain, Denies urinary incontinence (unknown) (no (unknown) (unknown) HENMT (units (unkno wn) date) unknown) (unknown) (no (unknown) (unknown) HPI - (units (unkno wn) date) Skin/Abscess/Foreig unknown) n Bdy (unknown) (no (unknown) (unknown) HPI narrative: (units (unknown) date) unknown) (unknown) (no (unknown) (unknown) Head: normal to (units (unknown) date) inspection and unknown) normocephalic (unknown) (no (unknown) (unknown) Hematologic/Lympha (units (unknown) date) tic unknown) (unknown) (no (unknown) (unknown) Hematologic/Lympha (units (unknown) date) tic: Denies easy unknown) bruising (unknown) (no (unknown) (unknown) History of Present (units (unknown) date) Illness unknown) (unknown) (no (unknown) (unknown) I was immediately (units (unknown) date) available in the unknown) department for consultation. Documentation (unknown) (no (unknown) (unknown) Initial Vital (units ( unknown) date) Signs unknown) (unknown) (no (unknown) (unknown) Initial Vital (units ( unknown) date) Signs: unknown) (unknown) (no (unknown) (unknown) Instructions: DI (units (unknown) date) for Rash unknown) (unknown) (no (unknown) (unknown) Integumentary/Estelle (units (unknown) date) sts unknown) (unknown) (no (unknown) (unknown) Lab Data (units (unkno wn) date) unknown) (unknown) (no (unknown) (unknown) Labs: (units (unkno wn) date) unknown) (unknown) (no (unknown) (unknown) Lower half of the (units (unknown) date) phase with mild unknown) erythema, scaling. No signs of infection. (unknown) (no (unknown) (unknown) MDM - (units (unkno wn) date) Skin/Abscess/Foreig unknown) n Bdy (unknown) (no (unknown) (unknown) MDM Narrative (units ( unknown) date) unknown) (unknown) (no (unknown) (unknown) Medical decision (units (unknown) date) making narrative: unknown) (unknown) (no (unknown) (unknown) Mental Status: (units (unknown) date) mental status unknown) grossly normal (unknown) (no (unknown) (unknown) Mode of arrival: (units (unknown) date) Wheelchair unknown) (unknown) (no (unknown) (unknown) Mouth: oral (units (un known) date) mucosae normal unknown) (unknown) (no (unknown) (unknown) Musculoskeletal (units (unknown) date) unknown) (unknown) (no (unknown) (unknown) Musculoskeletal: (units (unknown) date) Denies back pain, unknown) Denies muscle weakness, Denies neck pain, (unknown) (no (unknown) (unknown) Neck (units (unkno wn) date) unknown) (unknown) (no (unknown) (unknown) Neck: normal (units (u nknown) date) visual inspection unknown) and full ROM (unknown) (no (unknown) (unknown) Neuro (units (unkno wn) date) unknown) (unknown) (no (unknown) (unknown) Neurologic (units (unk nown) date) unknown) (unknown) (no (unknown) (unknown) Neurologic: Denies (units (unknown) date) behavioral changes, unknown) Denies confusion, Denies dizziness, (unknown) (no (unknown) (unknown) New (units (unkno wn) date) unknown) (unknown) (no (unknown) (unknown) Nose: external (units (unknown) date) nose normal unknown) (unknown) (no (unknown) (unknown) Oral mucosa (units (un known) date) appears normal. unknown) Poor dentition (unknown) (no (unknown) (unknown) Ordered: (units (unkno wn) date) unknown) (unknown) (no (unknown) (unknown) Orders (units (unkno wn) date) unknown) (unknown) (no (unknown) (unknown) Other: (units (unkno wn) date) unknown) (unknown) (no (unknown) (unknown) Palpation: soft (units (unknown) date) unknown) (unknown) (no (unknown) (unknown) Patient (units (unkno wn) date) Disposition: Home unknown) (unknown) (no (unknown) (unknown) Patient History (units (unknown) date) unknown) (unknown) (no (unknown) (unknown) Patient is (units (unk nown) date) wheelchair-bound unknown) due to cerebral palsy which is baseline (unknown) (no (unknown) (unknown) Patient was not (units (unknown) date) given unknown) dexamethasone. Patient was sent home with a prescription (unknown) (no (unknown) (unknown) Patient: (units (unkno wn) date) Zachery Phillips unknown) MR#: [id number] (unknown) (no (unknown) (unknown) Prescriptions: (units (unknown) date) unknown) (unknown) (no (unknown) (unknown) Psych (units (unkno wn) date) unknown) (unknown) (no (unknown) (unknown) Psychiatric (units (un known) date) unknown) (unknown) (no (unknown) (unknown) Psychiatric: Denies (units (unknown) date) anxiety, Denies unknown) behavioral changes, Denies confusion, Denies (unknown) (no (unknown) (unknown) Pulse Oximetry (units (unknown) date) 100 10/07/21 unknown) 15:27 (unknown) (no (unknown) (unknown) Pulse Oximetry 100 (units (unknown) date) unknown) (unknown) (no (unknown) (unknown) Pulse Rate 94 H (units (unknown) date) 10/07/21 15:27 unknown) (unknown) (no (unknown) (unknown) Pulse Rate 94 H (units (unknown) date) unknown) (unknown) (no (unknown) (unknown) ROS Unobtainable: (units (unknown) date) All systems unknown) reviewed + are unremarkable except as noted in HPI (unknown) (no (unknown) (unknown) Rate: regular rate (units (unknown) date) unknown) (unknown) (no (unknown) (unknown) Related Data (units (u nknown) date) unknown) (unknown) (no (unknown) (unknown) Resp (units (unkno wn) date) unknown) (unknown) (no (unknown) (unknown) Respiratory (units (un known) date) unknown) (unknown) (no (unknown) (unknown) Respiratory Rate (units (unknown) date) 22 10/07/21 15:27 unknown) (unknown) (no (unknown) (unknown) Respiratory Rate (units (unknown) date) 22 unknown) (unknown) (no (unknown) (unknown) Respiratory: Denies (units (unknown) date) cough, Denies unknown) dyspnea, Denies dyspnea on exertion and Denies (unknown) (no (unknown) (unknown) Review of Systems (units (unknown) date) unknown) (unknown) (no (unknown) (unknown) Rhythm: regular (units (unknown) date) rhythm unknown) (unknown) (no (unknown) (unknown) Signed By: (units (unk nown) date) unknown) (unknown) (no (unknown) (unknown) Skin (units (unkno wn) date) unknown) (unknown) (no (unknown) (unknown) Skin/Breast: (units (u nknown) date) Denies pruritus, unknown) Denies erythema, Reports rash and Denies wounds (unknown) (no (unknown) (unknown) Smoking Status: (units (unknown) date) Current every day unknown) smoker (unknown) (no (unknown) (unknown) Smoking Status: (units (unknown) date) Current every day unknown) smoker (unknown) (no (unknown) (unknown) Social History (units (unknown) date) (Reviewed 10/07/21 unknown) @ 19:27 by Annabelle Hill PA-C) (unknown) (no (unknown) (unknown) Source: patient (units (unknown) date) unknown) (unknown) (no (unknown) (unknown) Stated complaint: (units (unknown) date) COMPLICATION FROM unknown) MEDCATION FACE ISSUES VOMITING (unknown) (no (unknown) (unknown) Teeth and gingiva: (units (unknown) date) poor dentition unknown) (unknown) (no (unknown) (unknown) Temperature 98.1 (units (unknown) date) F 10/07/21 15:27 unknown) (unknown) (no (unknown) (unknown) Temperature 98.1 F (units (unknown) date) unknown) (unknown) (no (unknown) (unknown) Throat: posterior (units (unknown) date) oropharynx normal unknown) (unknown) (no (unknown) (unknown) Time Seen by (units (u nknown) date) Provider: 10/07/21 unknown) 18:57 (unknown) (no (unknown) (unknown) Ur Culture (units (unk nown) date) Indicated? Cult unknown) not indicated (unknown) (no (unknown) (unknown) Urine Bacteria (units (unknown) date) None seen (None) unknown) (unknown) (no (unknown) (unknown) Urine RBC None (units (unknown) date) seen (0-5/HPF) unknown) (unknown) (no (unknown) (unknown) Urine Specific (units (unknown) date) [place] 1.010 unknown) (unknown) (no (unknown) (unknown) Urine WBC None (units (unknown) date) seen (0-5/HPF) unknown) (unknown) (no (unknown) (unknown) Vital Signs (units (un known) date) unknown) (unknown) (no (unknown) (unknown) Vital signs: (units (u nknown) date) unknown) (unknown) (no (unknown) (unknown) You were evaluated (units (unknown) date) for a facial rash unknown) following a dose of Suboxone. It is likely (unknown) (no (unknown) (unknown) a G tube due to (units (unknown) date) his cerebral palsy, unknown) and is unable to take p.o. medications. (unknown) (no (unknown) (unknown) and Denies (units (unk nown) date) orthopnea unknown) (unknown) (no (unknown) (unknown) and Denies urinary (units (unknown) date) urgency unknown) (unknown) (no (unknown) (unknown) and Denies (units (unk nown) date) weakness unknown) (unknown) (no (unknown) (unknown) and below (units (unkn own) date) unknown) (unknown) (no (unknown) (unknown) depression, Denies (units (unknown) date) homicidal ideation unknown) and Denies suicidal ideation (unknown) (no (unknown) (unknown) diarrhea, Denies (units (unknown) date) nausea and Denies unknown) vomiting (unknown) (no (unknown) (unknown) due to cerebral (units (unknown) date) palsy, after his unknown) 1st does started developing a itching, burning (unknown) (no (unknown) (unknown) ection of (units (unkn own) date) dexamethasone. unknown) Patient will follow-up with his PCP tomorrow. ED (unknown) (no (unknown) (unknown) facial rash. (units (un known) date) Concern for unknown) allergic reaction versus rash. Will treat with IM inj (unknown) (no (unknown) (unknown) facial rash. (units (u nknown) date) Patient states that unknown) he was started on Suboxone for muscular pain (unknown) (no (unknown) (unknown) falls, Denies (units ( unknown) date) lethargy and Denies unknown) weakness (unknown) (no (unknown) (unknown) for prednisone to (units (unknown) date) use through his unknown) G-tube. (unknown) (no (unknown) (unknown) has been reviewed. (units (unknown) date) I agree with unknown) assessment and plan. (unknown) (no (unknown) (unknown) lightheadedness, (units (unknown) date) Denies unknown) palpitations, Denies dyspnea, Denies dyspnea on exertion (unknown) (no (unknown) (unknown) neck pain, Denies (units (unknown) date) sore throat and unknown) Denies throat swelling (unknown) (no (unknown) (unknown) pain. Patient was (units (unknown) date) seen at [facility] unknown) General earlier today for the same complaint, (unknown) (no (unknown) (unknown) possible. Please (units (unknown) date) discontinue the unknown) Suboxone. Return to the ED if you have any (unknown) (no (unknown) (unknown) prednisone 20 mg (units (unknown) date) tablet 40 mg PO unknown) DAILY 5 Days #10 tab 10/07/21 (unknown) (no (unknown) (unknown) prednisone for (units (unknown) date) your symptoms. unknown) Please follow-up with your PCP as soon as (unknown) (no (unknown) (unknown) rash on the lower (units (unknown) date) half of his face unknown) bilaterally. Patient denies throat swelling, (unknown) (no (unknown) (unknown) return precautions (units (unknown) date) discussed with unknown) patient. Patient verbalizes understanding. (unknown) (no (unknown) (unknown) steroid cream was (units (unknown) date) applied to his face unknown) and he was discharged. Patient states (unknown) (no (unknown) (unknown) that his symptoms (units (unknown) date) have not improved unknown) since then. Patient is also almost NPO with (unknown) (no (unknown) (unknown) that your symptoms (units (unknown) date) were caused due to unknown) an allergic reaction. You may take the (unknown) (no (unknown) (unknown) trouble breathing, (units (unknown) date) shortness of unknown) breath, wheezing, nausea, vomiting, abdominal (unknown) (no (unknown) (unknown) trouble breathing, (units (unknown) date) throat tightness, unknown) throat swelling, wheezing, nausea, (unknown) (no (unknown) (unknown) vomiting. (units (unkn own) date) unknown) (unknown) (no (unknown) (unknown) wheezing (units (unkno wn) date) unknown) Result panel 7 (unknown) (no date) (unknown) (unknown) 3+ (units (unkn own) unknown) (unknown) (no date) (unknown) (unknown) Cult Not (units (unkn own) Indicated unknown) (unknown) (no date) (unknown) (unknown) None Seen (units (unk nown) unknown) (unknown) (no date) (unknown) (unknown) None Seen (units (unk nown) unknown) (unknown) (no date) (unknown) (unknown) None Seen (units (unk nown) unknown) Result panel 8 (unknown) (no date) (unknown) (unknown) 3+ (units (unkn own) unknown) (unknown) (no date) (unknown) (unknown) Cult Not (units (unkn own) Indicated unknown) (unknown) (no date) (unknown) (unknown) None Seen (units (unk nown) unknown) (unknown) (no date) (unknown) (unknown) None Seen (units (unk nown) unknown) (unknown) (no date) (unknown) (unknown) None Seen (units (unk nown) unknown) Social History date description facility (no date) Smokes tobacco daily (finding) [facility] Vital Signs date measurement value units +0000 BP_diastolic BP_diastolic 76 mm[H g] +0000 BP_systolic BP_systolic 145 mm[Hg] +0000 heart_rate heart_rate 94 /min +0000 respiration_rate respiration_rate 22 /min +0000 temperature_metric temperature_metric 36.72 C +0000 temperature_standard temperature_standard 9 8.1 F +0000 weight_metric weight_metric 56.24 kg +0000 weight_standard weight_standard 123.99 lb
[2021-12-13] MEDS ORDERED: LIDOCAINE VISCOUS 2% 15 ML UDC MM STA (01:10)
--- NOTE | 2021-12-13 02:04 | ED Physician Documentation ---
History of Present Illness - Stated complaint Stated Complaint: FEEDING TUBE FELL OUT - Chief complaint Chief Complaint: General - History obtained from History obtained from: Patient - Additonal information Additional information: Patient is a 36-year-old male with a history of cerebral palsy, Paraplegia, wheelchair-bound presenting for evaluation of G-tube that has fallen out. Patient has had a G-tube for the past 4 months. Yesterday he was seen at a clinic in [place] and had a new type of G-tube placed. As he was doing his physical therapy this evening he had noted that it had come out. He denies significant discomfort. He has been using the G-tube for supplemental feeds as he has not been gaining enough weight. He does take Some nutrition by mouth and takes his medications by mouth.Patient has his G-tube present with him which has food particles still in it. Review of Systems Constitutional: denies: Fever Nose: denies: Congestion Cardiac: denies: Chest pain / pressure Respiratory: denies: Dyspnea GI: denies: Abdominal Pain, Vomiting Neurologic: denies: Headache PD PAST MEDICAL HISTORY - Past Medical History Cardiovascular: None Respiratory: None Neuro: Cerebral palsy Endocrine/Autoimmune: None GI: None : Other HEENT: None Psych: Anxiety, ADD/ADHD, Other Musculoskeletal: Paraplegia Derm: None - Past Surgical History Past Surgical History: No - Present Medications Home Medications: Ambulatory Orders Medication Instructions Recorded Confirmed Buprenorphine 1 patch TOP ONCE 11/06/20 11/06/20 Dantrolene Sodium [Dantrium] 75 mg PO TID 11/06/20 11/06/20 Metoclopramide [Reglan] 10 mg PO Q6H PRN #20 tablet 11/06/20 HYDROcod/ACETAM 5/325 [[place] 5/325] 1 - 2 tablet PO Q6H PRN #14 tablet 08/27/21 clindamycin HCL [Clindamycin HCl] 300 mg PO Q6HR #27 cap 08/27/21 Hydrocortisone 1% Cream 1 applic TOP BID #28 gm 10/07/21 [Hydrocortisone] - Allergies Allergies/Adverse Reactions: Allergies Allergy/AdvReac Type Severity Reaction Status Date / Time diphenhydramine Allergy Unknown Verified 12/12/21 22:13 [From Benadryl] acetaminophen [From Tylenol] AdvReac Dizziness Verified 12/12/21 22:13 aspirin AdvReac Unknown Verified 12/12/21 22:13 [email or web address] [From Chantix] AdvReac Anxiety Verified 12/12/21 22:13 - Social History Does the pt smoke?: Yes Smoking Status: Current every day smoker Does the pt drink ETOH?: No Does the pt have substance abuse?: Yes - Immunizations Immunizations are current?: No - POLST Patient has POLST: No PD ED PE NORMAL - General General: Alert and oriented X 3, No acute distress, Well developed/nourished - HEENT HEENT: Atraumatic, Moist mucous membranes - Neck Neck: Supple, no meningeal sign - Cardiac Cardiac: RRR, No murmur, Strong equal pulses - Respiratory Respiratory: No respiratory distress, Clear bilaterally - Abdomen Abdomen: Normal bowel sounds, Soft, Non tender, Non distended, Other (Left upper quadrant G-tube site, granulation tissue present, no redness or swelling) Results - Vitals Vitals: Vital Signs - 24 hr 12/12/21 22:02 Temperature 36.2 C L Heart Rate 73 Respiratory 16 Rate Blood Pressure 131/78 H O2 Saturation 100 Oxygen O2 Source Room air PD MEDICAL DECISION MAKING - ED course ED course: Patient with G-tube that has fallen out. Tract is been present for 4 months but patient had a new style of tube placed yesterday. It has been out for several hours. Unable to locate new G-tube in hospital. Cruz catheter was placed into site without difficulty. Patient aware he needs to contact The physician who manages his G-tube today to have a new one placed. The patient is able to take food and medication by mouth. He is using the G-tube for supplemental feeds to help him gain weight. 0200 - supervisor unloading had searched the hospital for any new G-tubes available And was not able to find any. Per radiologist, interventional radiology also does not place G-tubes. Patient does have his G-tube with him but it has liquid in it including dried Particles. Will replace with Cruz catheter. 18 [place] Cruz catheter was easily inserted without difficulty. We will confirm placement with x-ray and Gastrografin. Departure - Departure Disposition: 01 Home, Self Care Clinical Impression: Problem with gastrostomy tube Condition: Stable Instructions: Tube Gastrocarmela Bains J Care Comments: Your feeding tube had fallen out. We do not carry feeding tubes at this hospital And were not able to replace it. I did place a Cruz catheter To maintain the tract so it does not close and Verified that the Cruz is in proper position With an x-ray. Please call the doctor who just replaced your G-tube first thing in the morning to schedule having a new tube placed.Please take caution with the catheter that is currently in place to ensure that it is also not accidentally removed.
[2021-12-13] MEDS ORDERED: DIATR MEGLU/DIATRIZOATE SODIUM 120 ML BOTTLE PO ONE (03:02)
[2021-12-13] MEDS ORDERED: PREGABALIN 100 MG CAPSULE PO STA (03:16)
[2021-12-13] MEDS ORDERED: tiZANidine 4 MG TABLET PO STA (03:16)
[2021-12-13 05:15] VITALS: BP 130/64
--- NOTE | 2021-12-13 07:47 | XRAY Report ---
PROCEDURE: Abdomen 1 View X-Ray INDICATIONS: Cruz into G tube site TECHNIQUE: Pre and post contrast AP views of the abdomen acquired. COMPARISON: None. FINDINGS: Surgical changes and devices: Left upper quadrant gastrostomy tube is seen. Bowel: Contrast material injected through the gastrostomy tube is seen opacifying the stomach. No con trast extravasation is seen. Nonobstructive bowel gas pattern. Soft tissues: No suspicious abdominal calcifications. Visualized solid organ contours appear normal in size. Bones: No suspicious bony lesions. IMPRESSION: Oral contrast material injected through the gastrostomy tube opacifies the stomach without extravasat ion. There is no significant discrepancy when compared with the preliminary overnight report. Reviewed by: Yogi Escobar MD on 12/13/2021 7:46 AM PDT Approved by: Yogi Escobar MD on 12/13/2021 7:46 AM PDT Station ID: [id number]
== END 2021-12-13 04:45 | disposition home or self-care (01) ==
LOC: ED 21:57
DX: K94.29 Other complications of gastrostomy (principal); F17.200 Nicotine dependence, unspecified, uncomplicated
CPT/HCPCS: 74018; 99282; 99283; A9270; Q9963

== ENCOUNTER 2022-03-09 14:38 | Emergency (ER) | payer MEDICARE, MEDICAID ==
[2022-03-09 14:44] VITALS: BP 117/85
--- NOTE | 2022-03-09 14:56 | ED Physician Documentation ---
History of Present Illness - Stated complaint Stated Complaint: FEEDING TUBE - Additonal information Additional information: 36-year-old male who has a history of cerebral palsy presents emergency department after his feeding tube became dislodged when he was attempting to at the feeding extension. This is happened numerous times before. He has a 20 [place] 4.5 cm tube in his possession. Review of Systems Constitutional: reports: Reviewed and negative Skin: reports: Other (Ostomy stoma well-healed) PD PAST MEDICAL HISTORY - Past Medical History Cardiovascular: None Respiratory: None Neuro: Cerebral palsy Endocrine/Autoimmune: None GI: None : Other HEENT: None Psych: Anxiety, ADD/ADHD, Other Musculoskeletal: Paraplegia Derm: None - Past Surgical History Past Surgical History: No - Present Medications Home Medications: Ambulatory Orders Medication Instructions Recorded Confirmed Buprenorphine 1 patch TOP ONCE 11/06/20 11/06/20 Dantrolene Sodium [Dantrium] 75 mg PO TID 11/06/20 11/06/20 Metoclopramide [Reglan] 10 mg PO Q6H PRN #20 tablet 11/06/20 HYDROcod/ACETAM 5/325 [[place] 5/325] 1 - 2 tablet PO Q6H PRN #14 tablet 08/27/21 clindamycin HCL [Clindamycin HCl] 300 mg PO Q6HR #27 cap 08/27/21 Hydrocortisone 1% Cream 1 applic TOP BID #28 gm 10/07/21 [Hydrocortisone] Amox/Clav 875/125 [Augmentin] 1 each PO Q12H #20 tablet 02/19/22 - Allergies Allergies/Adverse Reactions: Allergies Allergy/AdvReac Type Severity Reaction Status Date / Time diphenhydramine Allergy Unknown Verified 03/09/22 14:45 [From Benadryl] acetaminophen [From Tylenol] AdvReac Dizziness Verified 03/09/22 14:45 aspirin AdvReac Unknown Verified 03/09/22 14:45 [email or web address] [From Chantix] AdvReac Anxiety Verified 03/09/22 14:45 - Social History Does the pt smoke?: Yes Smoking Status: Current every day smoker Does the pt drink ETOH?: No Does the pt have substance abuse?: Yes - Immunizations Immunizations are current?: No - POLST Patient has POLST: No PD ED PE EXPANDED - General General: Alert, No acute distress - Abdomen Abdomen: Other (Ostomy feeding stoma in the left upper abdomen well-healed with no surrounding erythema or drainage.) Results - Vitals Vitals: Vital Signs - 24 hr 03/09/22 14:42 Temperature 36.5 C Heart Rate 85 Respiratory 16 Rate Blood Pressure 117/85 H O2 Saturation 100 Oxygen O2 Source Room air PD MEDICAL DECISION MAKING - ED course Complexity details: considered differential, d/w patient ED course: 36-year-old male presents emergency department for evaluation of his feeding tube that got dislodged when he was attempting to add the feeding extension. I was able to easily replace the 20 [place] Citizen tube with minimal discomfort. It flushes easily. Patient is discharged home in stable condition. Departure - Departure Disposition: 01 Home, Self Care Clinical Impression: Dislodged gastrostomy tube Condition: Stable Record reviewed to determine appropriate education?: Yes Comments: Zachery we were able to easily replace your feeding tube. Continue to follow-up with PT and OT as you already are.
== END 2022-03-09 14:59 | disposition home or self-care (01) ==
LOC: ED 14:38
DX: K94.29 Other complications of gastrostomy (principal); G80.9 Cerebral palsy, unspecified; F17.200 Nicotine dependence, unspecified, uncomplicated
CPT/HCPCS: 99281

== ENCOUNTER 2022-03-17 10:49 | Emergency (ER) | payer MEDICARE, MEDICAID ==
[2022-03-17 10:54] VITALS: BP 127/74
[2022-03-17] MEDS ORDERED: CYCLOBENZAPRINE 10 MG TABLET PO STA (13:06)
[2022-03-17] MEDS ORDERED: KETOROLAC 60 MG/2 ML VIAL IM STA (13:06)
[2022-03-17] MEDS ORDERED: oxyCODONE 5 MG TABLET PO STA (13:06)
--- NOTE | 2022-03-17 13:24 | ED Physician Documentation ---
History of Present Illness - Stated complaint Stated Complaint: BACK PX - Chief complaint Chief Complaint: Back Pain - History obtained from History obtained from: Patient - History of Present Illness Pain level max: 7 Pain level now: 7 - Additonal information Additional information: Patient is a 36-year-old male with a history of cerebral palsy. He is complained of increasing back pain. Worse with movement, better with rest. He states his normal tizanidine is not helping. This been ongoing for the past several days. Does not recall any significant injury. Review of Systems Constitutional: denies: Fever, Chills Respiratory: denies: Cough GI: denies: Nausea, Vomiting, Diarrhea Skin: denies: Rash Musculoskeletal: denies: Neck pain Neurologic: denies: Focal weakness, Numbness, Headache PD PAST MEDICAL HISTORY - Past Medical History Cardiovascular: None Respiratory: None Neuro: Cerebral palsy Endocrine/Autoimmune: None GI: None : Other HEENT: None Psych: Anxiety, ADD/ADHD, Other Musculoskeletal: Paraplegia Derm: None - Past Surgical History Past Surgical History: No - Present Medications Home Medications: Ambulatory Orders Medication Instructions Recorded Confirmed Buprenorphine 1 patch TOP ONCE 11/06/20 11/06/20 Dantrolene Sodium [Dantrium] 75 mg PO TID 11/06/20 11/06/20 Metoclopramide [Reglan] 10 mg PO Q6H PRN #20 tablet 11/06/20 HYDROcod/ACETAM 5/325 [[place] 5/325] 1 - 2 tablet PO Q6H PRN #14 tablet 08/27/21 clindamycin HCL [Clindamycin HCl] 300 mg PO Q6HR #27 cap 08/27/21 Hydrocortisone 1% Cream 1 applic TOP BID #28 gm 10/07/21 [Hydrocortisone] Amox/Clav 875/125 [Augmentin] 1 each PO Q12H #20 tablet 02/19/22 Cyclobenzaprine [Flexeril] 10 mg PO TID PRN #20 tablet 03/17/22 Meloxicam [Mobic] 7.5 mg PO BID PRN #20 tablet 03/17/22 Oxycodone HCl [Roxicodone] 5 - 10 mg PO Q6H PRN #14 tablet 03/17/22 - Allergies Allergies/Adverse Reactions: Allergies Allergy/AdvReac Type Severity Reaction Status Date / Time diphenhydramine Allergy Unknown Verified 03/17/22 10:54 [From Benadryl] acetaminophen [From Tylenol] AdvReac Dizziness Verified 03/17/22 10:54 aspirin AdvReac Unknown Verified 03/17/22 10:54 [email or web address] [From Chantix] AdvReac Anxiety Verified 03/17/22 10:54 - Social History Does the pt smoke?: Yes Smoking Status: Current every day smoker Does the pt drink ETOH?: No Does the pt have substance abuse?: Yes - Immunizations Immunizations are current?: No - POLST Patient has POLST: No PD ED PE NORMAL - Vitals Vital signs reviewed: Yes - General General: Alert and oriented X 3, No acute distress - HEENT HEENT: Moist mucous membranes - Neck Neck: Supple, no meningeal sign - Cardiac Cardiac: RRR - Respiratory Respiratory: No respiratory distress, Clear bilaterally - Back Back: Other (paraspinal spasm B low lumbar, R >L. no midline TTP, no stepoff or deformity. ) - Derm Derm: Warm and dry - Neuro Neuro: Alert and oriented X 3 Results - Vitals Vitals: Vital Signs - 24 hr 03/17/22 10:52 Temperature 36.3 C L Heart Rate 82 Respiratory 14 Rate Blood Pressure 127/74 O2 Saturation 100 Oxygen O2 Source Room air PD MEDICAL DECISION MAKING - ED course Complexity details: considered differential, d/w patient ED course: 36-year-old male with cerebral palsy presents with back pain. Nontraumatic. Has paraspinal spasm bilaterally. Will place on pain medication muscle relaxants for home. No trauma. No indication for emergent neuroimaging. No fevers. No evidence of cauda equina, epidural abscess. Patient counseled regarding signs and symptoms for which I believe and urgent re-evaluation would be necessary. Patient with good understanding of and agreement to plan and is comfortable going home at this time This document was made in part using voice recognition software. While efforts are made to proofread this document, sound alike and grammatical errors may occur. Departure - Departure Disposition: 01 Home, Self Care Clinical Impression: Back pain Qualifiers: Back pain location: low back pain Chronicity: acute Back pain laterality: bilateral Sciatica presence: without sciatica Qualified Code(s): M54.50 - Low back pain, unspecified Condition: Good Instructions: ED Neck Back Pain General Follow-Up: Your,doctor in 1 week [Other] Prescriptions: Cyclobenzaprine [Flexeril] 10 mg PO TID PRN #20 tablet PRN Reason: Spasms Meloxicam [Mobic] 7.5 mg PO BID PRN #20 tablet PRN Reason: Pain Oxycodone HCl [Roxicodone] 5 - 10 mg PO Q6H PRN #14 tablet PRN Reason: Pain Comments: Your prescriptions were sent to the [facility] pharmacy. Please follow-up with your doctor for further care. Return if you worsen. This should improve over the next few days. Discharge Date/Time: 03/17/22 14:01
== END 2022-03-17 14:01 | disposition home or self-care (01) ==
LOC: ED 10:49
DX: M54.50 Low back pain, unspecified (principal); G80.9 Cerebral palsy, unspecified; M62.830 Muscle spasm of back; F17.200 Nicotine dependence, unspecified, uncomplicated
CPT/HCPCS: 96372; 99283; A9270

== ENCOUNTER 2022-06-20 01:32 | Emergency (ER) | payer MEDICARE, MEDICAID ==
--- NOTE | 2022-06-20 02:02 | ED Physician Documentation ---
History of Present Illness - Stated complaint Stated Complaint: Body shakes, reflexes ? med rxn - Chief complaint Chief Complaint: Neuro - History obtained from History obtained from: Patient - History of Present Illness Timing: How many days ago (several days of generally increased spasticity mainly legs, but some upper body and arms as well. Denies current illness/ viral symptoms/ dysuria/ medication change as likely triggering of increased spasms. He does not know why it is increased, but has had it happen at times in the past.) Review of Systems Constitutional: denies: Fever, Chills Nose: denies: Rhinorrhea / runny nose, Congestion Throat: denies: Sore throat Respiratory: denies: Cough GI: reports: Nausea. denies: Abdominal Pain, Vomiting, Diarrhea : denies: Dysuria Skin: denies: Rash Neurologic: denies: Headache Endocrine: denies: Weight loss PD PAST MEDICAL HISTORY - Past Medical History Cardiovascular: None Respiratory: None Neuro: Cerebral palsy (with spasticity and back pain chronically.) Endocrine/Autoimmune: None GI: None : Other HEENT: None Psych: Anxiety, ADD/ADHD, Other Musculoskeletal: Paraplegia Derm: None - Past Surgical History Past Surgical History: No - Present Medications Home Medications: Ambulatory Orders Medication Instructions Recorded Confirmed Buprenorphine 1 patch TOP ONCE 11/06/20 11/06/20 Dantrolene Sodium [Dantrium] 75 mg PO TID 11/06/20 11/06/20 Metoclopramide [Reglan] 10 mg PO Q6H PRN #20 tablet 11/06/20 HYDROcod/ACETAM 5/325 [[place] 5/325] 1 - 2 tablet PO Q6H PRN #14 tablet 08/27/21 clindamycin HCL [Clindamycin HCl] 300 mg PO Q6HR #27 cap 08/27/21 Hydrocortisone 1% Cream 1 applic TOP BID #28 gm 10/07/21 [Hydrocortisone] Amox/Clav 875/125 [Augmentin] 1 each PO Q12H #20 tablet 02/19/22 Cyclobenzaprine [Flexeril] 10 mg PO TID PRN #20 tablet 03/17/22 Meloxicam [Mobic] 7.5 mg PO BID PRN #20 tablet 03/17/22 Oxycodone HCl [Roxicodone] 5 - 10 mg PO Q6H PRN #14 tablet 03/17/22 diazePAM [Valium] 5 mg PO BID PRN #30 tablet 06/20/22 - Allergies Allergies/Adverse Reactions: Allergies Allergy/AdvReac Type Severity Reaction Status Date / Time diphenhydramine Allergy Unknown Verified 06/20/22 01:39 [From Benadryl] acetaminophen [From Tylenol] AdvReac Dizziness Verified 06/20/22 01:39 aspirin AdvReac Unknown Verified 06/20/22 01:39 [email or web address] [From Chantix] AdvReac Anxiety Verified 06/20/22 01:39 - Social History Does the pt smoke?: Yes Smoking Status: Current every day smoker Does the pt drink ETOH?: No Does the pt have substance abuse?: Yes - Immunizations Immunizations are current?: No - POLST Patient has POLST: No PD ED PE NORMAL - Vitals Vital signs reviewed: Yes - General General: Alert and oriented X 3, Other (decreased muscle mass generally but upper body appears toned. ) - Neck Neck: Supple, no meningeal sign, No adenopathy - Cardiac Cardiac: RRR, No murmur - Respiratory Respiratory: Clear bilaterally - Abdomen Abdomen: Soft, Non tender - Derm Derm: Normal color, Warm and dry - Extremities Extremities: Other (he is having intermittent spsms of the legs mainly. Seems uncomfortable. ) Results - Vitals Vitals: Vital Signs - 24 hr 06/20/22 06/20/22 01:35 03:07 Temperature 37.2 C Heart Rate 95 84 Respiratory 19 18 Rate Blood Pressure 140/90 H 126/82 H O2 Saturation 99 100 Oxygen O2 Source Room air PD Medical Decision Making - ED course Complexity details: reviewed old records (Review of external pharmacy records shows he is already on fairly high doses of Lyrica and tizanidine with 300 mg a day of Lyrica (3 of 100 mg tablets) and 20 mg of tizanidine (5 of 4 mg tablets daily).), re-evaluated patient (He seems to be having less spasticity after an IM dose of benzodiazepine is and is not having any untoward sedation. He is not driving home.), considered differential (Cerebral palsy with increased spasming over baseline. No obvious triggers such as cold or flu or current infections etc.), d/w patient Drug Therapy Requiring Monitoring for Toxicity: Given dose of IM diazepam for the spasticity we will watch to ensure no oversedation. ED course: The patient is on antispasmodic medication and neuropathic pain medication. Review of up-to-date online reference shows the main medications used for cerebral palsy spasticity ER baclofen, benzodiazepines, dantrolene, tizanidine. He states he had been on baclofen at higher doses without any improvement and had been on dantrolene at one point. Currently is on the tizanidine. Lyrica for other general pains. He has had benzodiazepines periodically in the past but is not on them regularly. Departure - Departure Disposition: 01 Home, Self Care Clinical Impression: Cerebral palsy, Muscle spasticity Condition: Stable Record reviewed to determine appropriate education?: Yes Prescriptions: diazePAM [Valium] 5 mg PO BID PRN #30 tablet PRN Reason: Spasms Comments: Continue your current medication prescriptions. In the short-term we can add diazepam (Valium) twice daily if needed for spasms. Follow-up with your specialist regarding other medication options for longer term. I sent your prescription to the [facility] pharmacy here in [place].
[2022-06-20] MEDS ORDERED: diazePAM INJ 5 MG/ML SYRINGE IM STA (02:10)
[2022-06-20 03:07] VITALS: BP 126/82
== END 2022-06-20 03:00 | disposition home or self-care (01) ==
LOC: ED 01:32
DX: M62.838 Other muscle spasm (principal); G80.9 Cerebral palsy, unspecified; F17.200 Nicotine dependence, unspecified, uncomplicated
CPT/HCPCS: 96372; 99283; 99284

== ENCOUNTER 2022-06-29 23:50 | Emergency (ER) | payer MEDICARE, MEDICAID ==
[2022-06-30] VITALS: BP 116/71
[2022-06-30] MEDS ORDERED: HYDROcod/ACETAM 5/325 MG TABLET PO STA (00:11)
--- NOTE | 2022-06-30 00:14 | ED Physician Documentation ---
History of Present Illness - Stated complaint Stated Complaint: SEVERE MUSCLE PX - Chief complaint Chief Complaint: General - History obtained from History obtained from: Patient - Additonal information Additional information: The patient comes to the emergency department chief complaint of muscle spasms. He has these chronically secondary to his cerebral palsy, but states that they have been worse over the last few days. He was just seen here about a week ago and was prescribed Valium, as he has already been on just about every other potentially helpful agent, and has found these either unhelpful or states he cannot take them for 1 reason or another. He states that after being prescribed the Valium, he was told by his chronic pain specialist that he should not be on Valium and was told to stop it. The patient states that he "dumped the pills out at the pharmacy" and did not take them. The patient states he has an appointment in 2 days with his pain specialist and that at that time, they will talk about what he can be on. For now, he is only on Lyrica and tizanidine. The patient denies any unusual complaints. He states the pain in his muscles is the same as what he always gets. He thinks the only thing that may help him, he states, is Vicodin. Review of Systems Constitutional: reports: Reviewed and negative Eyes: reports: Reviewed and negative Ears: reports: Reviewed and negative Nose: reports: Reviewed and negative Throat: reports: Reviewed and negative Cardiac: reports: Reviewed and negative Respiratory: reports: Reviewed and negative GI: reports: Reviewed and negative : reports: Reviewed and negative Skin: reports: Reviewed and negative Musculoskeletal: reports: Reviewed and negative Neurologic: reports: Reviewed and negative Psychiatric: reports: Reviewed and negative Endocrine: reports: Reviewed and negative Immunocompromised: reports: Reviewed and negative PD PAST MEDICAL HISTORY - Past Medical History Cardiovascular: None Respiratory: None Neuro: Cerebral palsy (with spasticity and back pain chronically.) Endocrine/Autoimmune: None GI: None : Other HEENT: None Psych: Anxiety, ADD/ADHD, Other Musculoskeletal: Paraplegia Derm: None - Past Surgical History Past Surgical History: No - Present Medications Home Medications: Ambulatory Orders Medication Instructions Recorded Confirmed Buprenorphine 1 patch TOP ONCE 11/06/20 06/30/22 Dantrolene Sodium [Dantrium] 75 mg PO TID 11/06/20 06/30/22 Metoclopramide [Reglan] 10 mg PO Q6H PRN #20 tablet 11/06/20 06/30/22 Hydrocortisone 1% Cream 1 applic TOP BID #28 gm 10/07/21 06/30/22 [Hydrocortisone] Cyclobenzaprine [Flexeril] 10 mg PO TID PRN #20 tablet 03/17/22 06/30/22 Meloxicam [Mobic] 7.5 mg PO BID PRN #20 tablet 03/17/22 06/30/22 Oxycodone HCl [Roxicodone] 5 - 10 mg PO Q6H PRN #14 tablet 03/17/22 06/30/22 HYDROcod/ACETAM 5/325 [[place] 5/325] 1 - 2 tablet PO Q6H PRN #14 tablet 06/30/22 - Allergies Allergies/Adverse Reactions: Allergies Allergy/AdvReac Type Severity Reaction Status Date / Time diazepam [From Valium] Allergy Unknown Verified 06/30/22 00:01 diphenhydramine Allergy Unknown Verified 06/20/22 01:39 [From Benadryl] acetaminophen [From Tylenol] AdvReac Dizziness Verified 06/20/22 01:39 aspirin AdvReac Unknown Verified 06/20/22 01:39 varenicline [From Chantix] AdvReac Anxiety Verified 06/20/22 01:39 - Social History Does the pt smoke?: Yes Smoking Status: Current every day smoker Does the pt drink ETOH?: No Does the pt have substance abuse?: Yes - Immunizations Immunizations are current?: No - POLST Patient has POLST: No PD ED PE NORMAL - Vitals Vital signs reviewed: Yes - General General: Alert and oriented X 3, No acute distress, Well developed/nourished - HEENT HEENT: Atraumatic, PERRL, EOMI, Moist mucous membranes - Neck Neck: Supple, no meningeal sign - Cardiac Cardiac: RRR, No murmur - Respiratory Respiratory: No respiratory distress, Clear bilaterally - Abdomen Abdomen: Soft, Non tender, Non distended - Derm Derm: Normal color, Warm and dry, No rash - Extremities Extremities: No deformity, No edema - Neuro Neuro: Alert and oriented X 3 - Psych Psych: Normal mood, Normal affect Results - Vitals Vitals: Vital Signs - 24 hr 06/29/22 23:55 Temperature 36.9 C Heart Rate 72 Respiratory 16 Rate Blood Pressure 116/71 O2 Saturation 100 Oxygen O2 Source Room air PD Medical Decision Making - ED course Complexity details: considered differential, d/w patient ED course: I discussed with the patient that I really not have a lot of options for him because he has already been on everything we would use for muscle relaxation and most of he states does not work. He was given Valium recently but states that he did not take it because his chronic pain specialist told him not to. As such, I can give him a short course of Vicodin but this is really not ideal treatment for muscle spasm or for his chronic pain. I ordered the dose and a prescription, but then the nursing staff came and told me that the patient did not want to take the Vicodin because it has Tylenol in it. At this point, I have informed the patient that I do not have any other options to put him on orally and that he is going to have to decide whether he wants to take something with Tylenol and or not. The patient has "dizziness" listed as his reaction to acetaminophen and I have informed him that this is not an allergy and does not necessarily have to preclude him from taking the medication. However, patient decided he did not want to take the meds and so he has been discharged home. He has an appointment the day after tomorrow with his pain specialist and is encouraged to discuss his concerns over pain control with the specialist. Departure - Departure Disposition: 01 Home, Self Care Clinical Impression: Acute pain, Muscle spasticity Instructions: ED Spasm Muscle Prescriptions: HYDROcod/ACETAM 5/325 [[place] 5/325] 1 - 2 tablet PO Q6H PRN #14 tablet PRN Reason: Pain Comments: You have reported that none of your agents for muscle spasm have worked for you, and that your specialist does not want you on Valium. As such, that really does not leave us very many options to treat your symptoms. You have been given a dose of Vicodin in the emergency department today, and have been given a prescription, which has been electronically transmitted to the [facility], for the same medication. You have been given enough to last until your appointment on Thursday. You will need to speak with your specialist about a good plan for control of your chronic pain and muscle spasms. Discharge Date/Time: 06/30/22 00:24
== END 2022-06-30 00:24 | disposition home or self-care (01) ==
LOC: ED 23:50
DX: R52 Pain, unspecified (principal); M62.838 Other muscle spasm; G80.9 Cerebral palsy, unspecified; F17.200 Nicotine dependence, unspecified, uncomplicated
CPT/HCPCS: 99282; 99284

== ENCOUNTER 2022-11-06 17:45 | Emergency (ER) | payer MEDICARE, MEDICAID ==
[2022-11-06 17:56] VITALS: BP 136/75
[2022-11-06] MEDS ORDERED: ALBUTEROL NEB 2.5 MG/3 ML INH STA (18:13)
--- NOTE | 2022-11-06 18:16 | ED Physician Documentation ---
History of Present Illness - Stated complaint Stated Complaint: THROAT ISSUES - Chief complaint Chief Complaint: Heent - History obtained from History obtained from: Patient - History of Present Illness Timing: How many days ago (2) Pain level max: 0 Pain level now: 0 - Additonal information Additional information: 37-year-old male states that he has had a "mucus" in his throat for the past 2 days. He states that he is having difficulty swallowing because of the mucus. He has not taken anything for this. No fevers. No chills. No sore throat. No cough. He does have some nasal congestion as well, but mostly in his throat. No difficulty breathing. Review of Systems Constitutional: denies: Fever, Chills Cardiac: denies: Chest pain / pressure, Palpitations Respiratory: denies: Dyspnea, Cough, Wheezing GI: denies: Nausea, Vomiting, Diarrhea Skin: denies: Rash Musculoskeletal: denies: Neck pain, Back pain Neurologic: denies: Headache PD PAST MEDICAL HISTORY - Past Medical History Past Medical History: Yes Cardiovascular: None Respiratory: None Neuro: Cerebral palsy (with spasticity and back pain chronically.) Endocrine/Autoimmune: None GI: None : Other HEENT: None Psych: Anxiety, ADD/ADHD, Other Musculoskeletal: Paraplegia Derm: None - Past Surgical History Past Surgical History: No - Present Medications Home Medications: Ambulatory Orders Medication Instructions Recorded Confirmed Buprenorphine 1 patch TOP ONCE 11/06/20 06/30/22 Dantrolene Sodium [Dantrium] 75 mg PO TID 11/06/20 06/30/22 Metoclopramide [Reglan] 10 mg PO Q6H PRN #20 tablet 11/06/20 06/30/22 Hydrocortisone 1% Cream 1 applic TOP BID #28 gm 10/07/21 06/30/22 [Hydrocortisone] Cyclobenzaprine [Flexeril] 10 mg PO TID PRN #20 tablet 03/17/22 06/30/22 Meloxicam [Mobic] 7.5 mg PO BID PRN #20 tablet 03/17/22 06/30/22 Oxycodone HCl [Roxicodone] 5 - 10 mg PO Q6H PRN #14 tablet 03/17/22 06/30/22 HYDROcod/ACETAM 5/325 [[place] 5/325] 1 - 2 tablet PO Q6H PRN #14 tablet 06/30/22 Cetirizine HCl/Pseudoephedrine 1 tab PO BID PRN #20 tab 11/06/22 [Zyrtec-D ER 5 mg-120 mg Tablet] - Allergies Allergies/Adverse Reactions: Allergies Allergy/AdvReac Type Severity Reaction Status Date / Time diazepam [From Valium] Allergy Unknown Verified 06/30/22 00:01 diphenhydramine Allergy Unknown Verified 06/20/22 01:39 [From Benadryl] acetaminophen [From Tylenol] AdvReac Dizziness Verified 06/20/22 01:39 aspirin AdvReac Unknown Verified 06/20/22 01:39 varenicline [From Chantix] AdvReac Anxiety Verified 06/20/22 01:39 - Social History Does the pt smoke?: Yes Smoking Status: Current every day smoker Does the pt drink ETOH?: No Does the pt have substance abuse?: Yes - Immunizations Immunizations are current?: No - POLST Patient has POLST: No PD ED PE NORMAL - Vitals Vital signs reviewed: Yes - General General: Alert and oriented X 3, No acute distress - HEENT HEENT: Ears normal, Moist mucous membranes, Pharynx benign, Other (Normal phonation. No trismus.) - Neck Neck: Supple, no meningeal sign - Cardiac Cardiac: RRR, Strong equal pulses - Respiratory Respiratory: No respiratory distress, Clear bilaterally - Abdomen Abdomen: Soft, Non tender, Non distended - Derm Derm: Warm and dry, No rash - Neuro Neuro: Alert and oriented X 3 - Psych Psych: Normal mood, Normal affect Results - Vitals Vitals: Vital Signs - 24 hr 11/06/22 11/06/22 11/06/22 17:49 17:54 18:50 Temperature 36.5 C Heart Rate 96 Respiratory 18 17 20 Rate Blood Pressure 136/75 H O2 Saturation 100 Oxygen O2 Source Room air PD Medical Decision Making - ED course Complexity details: considered differential, d/w patient ED course: Patient is well-appearing, nontoxic. Afebrile. Normal phonation. No trismus. Normal oropharyngeal exam. Tolerating p.o. without difficulty here. No signs of strep pharyngitis. No sore throat. Will place on decongestants and have him follow-up with his doctor for further care. Patient was given a breathing treatment with albuterol while he was here. Patient counseled regarding signs and symptoms for which I believe and urgent re-evaluation would be necessary. Patient with good understanding of and agreement to plan and is comfortable going home at this time This document was made in part using voice recognition software. While efforts are made to proofread this document, sound alike and grammatical errors may occur. Does not feel much different after albuterol. Departure - Departure Disposition: Home, Self Care Clinical Impression: Viral URI Condition: Good Instructions: ED Viral Syndrome Follow-Up: your,doctor in 1 week [Other] Prescriptions: Cetirizine HCl/Pseudoephedrine [Zyrtec-D ER 5 mg-120 mg Tablet] 1 tab PO BID PRN #20 tab PRN Reason: nasal congestion Comments: Your prescription was sent to the [facility] pharmacy. Please follow-up with your doctor for further care. Please return if you worsen. Please make sure you are drinking plenty of water at home. Discharge Date/Time: 11/06/22 19:07
== END 2022-11-06 19:07 | disposition home or self-care (01) ==
LOC: ED 17:45
DX: J06.9 Acute upper respiratory infection, unspecified (principal); F17.200 Nicotine dependence, unspecified, uncomplicated
CPT/HCPCS: 94640; 94664; 99283

== ENCOUNTER 2022-11-11 15:02 | Emergency (ER) | payer MEDICARE, MEDICAID ==
[2022-11-11 15:12] VITALS: BP 129/79
--- NOTE | 2022-11-11 15:48 | ED Physician Documentation ---
PD HPI URI - Stated complaint Stated Complaint: INFLAMMATION - Chief complaint Chief Complaint: Resp - History obtained from History obtained from: Patient - History of Present Illness Timing - onset: How many weeks ago (1) Timing duration: Weeks (1) Timing details: Gradual onset, Still present Associated symptoms: Nasal congestion, Sore throat (he states he has had congestion, phlegm that feels clogging his throat, and increaseing postnasal drainage that is thicker and purulent now the past couple days. had less thick material 5 days ago when seen here and presumed viral illness. Also having white patches on tongue and pallate.), Swollen nodes. No: Fever, Chills, Dry cough, Dyspnea Contributing factors: No: Sick contact, Unimmunized Recently seen: Emergency Dept Review of Systems Constitutional: denies: Fever, Chills Nose: reports: Congestion, Sinus pressure / pain Throat: reports: Sore throat (and sore pallatte and top of tongue. No recent antibiotics.) PD PAST MEDICAL HISTORY - Past Medical History Cardiovascular: None Respiratory: None Neuro: Cerebral palsy (with spasticity and back pain chronically.) Endocrine/Autoimmune: None GI: None : Other HEENT: None Psych: Anxiety, ADD/ADHD, Other Musculoskeletal: Paraplegia Derm: None - Past Surgical History Past Surgical History: No - Present Medications Home Medications: Ambulatory Orders Medication Instructions Recorded Confirmed Buprenorphine 1 patch TOP ONCE 11/06/20 06/30/22 Dantrolene Sodium [Dantrium] 75 mg PO TID 11/06/20 06/30/22 Metoclopramide [Reglan] 10 mg PO Q6H PRN #20 tablet 11/06/20 06/30/22 Hydrocortisone 1% Cream 1 applic TOP BID #28 gm 10/07/21 06/30/22 [Hydrocortisone] Cyclobenzaprine [Flexeril] 10 mg PO TID PRN #20 tablet 03/17/22 06/30/22 Meloxicam [Mobic] 7.5 mg PO BID PRN #20 tablet 03/17/22 06/30/22 Oxycodone HCl [Roxicodone] 5 - 10 mg PO Q6H PRN #14 tablet 03/17/22 06/30/22 HYDROcod/ACETAM 5/325 [[place] 5/325] 1 - 2 tablet PO Q6H PRN #14 tablet 06/30/22 Cetirizine HCl/Pseudoephedrine 1 tab PO BID PRN #20 tab 11/06/22 [Zyrtec-D ER 5 mg-120 mg Tablet] Cephalexin Suspension [Keflex] 500 mg PO TID 5 Days #150 ml 11/11/22 Nystatin [Mycostatin] 10 ml PO TID 5 Days #150 ml 11/11/22 guaiFENesin [Chest Congestion 200 mg PO Q6H PRN #240 ml 11/11/22 Relief] - Allergies Allergies/Adverse Reactions: Allergies Allergy/AdvReac Type Severity Reaction Status Date / Time diazepam [From Valium] Allergy Unknown Verified 11/11/22 15:10 diphenhydramine Allergy Unknown Verified 11/11/22 15:10 [From Benadryl] acetaminophen [From Tylenol] AdvReac Dizziness Verified 11/11/22 15:10 aspirin AdvReac Unknown Verified 11/11/22 15:10 [email or web address] [From Chantix] AdvReac Anxiety Verified 11/11/22 15:10 - Social History Does the pt smoke?: Yes Smoking Status: Current every day smoker Does the pt drink ETOH?: No Does the pt have substance abuse?: Yes - Immunizations Immunizations are current?: No - POLST Patient has POLST: No PD ED PE NORMAL - Vitals Vital signs reviewed: Yes - General General: Alert and oriented X 3, No acute distress, Other (moderate frail and thin appearing. ) - HEENT HEENT: No: Moist mucous membranes, Pharynx benign (he has some white patchiness to top of tongue. some redness to soft pallate. Peritonsillar area is normal. Neck supple without adenopathy. He had some thicker sputum he brought in a baggie (coin sized) that is yellow/white but dried at this point. ) - Neck Neck: Supple, no meningeal sign, No adenopathy - Cardiac Cardiac: RRR, No murmur - Respiratory Respiratory: Clear bilaterally - Abdomen Abdomen: Non distended, Other (his g-tube site has some crusting material around the tubing but no redness/swelling/discharge from the skin area. ) - Derm Derm: Normal color, Warm and dry Results - Vitals Vitals: Vital Signs - 24 hr 11/11/22 11/11/22 15:06 15:48 Temperature 36.1 C L Heart Rate 100 Respiratory 14 Rate Blood Pressure 129/79 O2 Saturation 98 98 Oxygen O2 Source Room air PD Medical Decision Making - ED course Complexity details: reviewed old records, considered differential (this person has a tough life with his background and wheelchair bound and self care. Current symptoms could be effect of seasonal allergies or viral URI with congestion and thicker nasal and cough sputum. It is worsening so consider bacterial now. He also has some oral finding that suggest thrush. ), d/w patient Departure - Departure Disposition: Home, Self Care Clinical Impression: Mucosal irritation of oral cavity Condition: Stable Record reviewed to determine appropriate education?: Yes Prescriptions: guaiFENesin [Chest Congestion Relief] 200 mg PO Q6H PRN #240 ml PRN Reason: Cough Cephalexin Suspension [Keflex] 500 mg PO TID 5 Days #150 ml Nystatin [Mycostatin] 10 ml PO TID 5 Days #150 ml Comments: The tongue and throat do have the whiteness and some inflammation. Consideration would be the viral syndrome. However other considerations would be potential yeast infection (thrush) or bacterial sinus causing drip down inflammation. We can treat with both antibiotic and antifungal in case. To try to loosen some of the mucus, we can try guaifenesin. Also try to stay well-hydrated orally and consider even some saline nose spray to help clear some of the nasal passage/sinuses. I sent a prescription to [facility] pharmacy here in [place]. Discharge Date/Time: 11/11/22 16:39
== END 2022-11-11 16:39 | disposition home or self-care (01) ==
LOC: ED 15:02
DX: B08.8 Other specified viral infections characterized by skin and mucous membrane lesions (principal); G80.1 Spastic diplegic cerebral palsy; F17.200 Nicotine dependence, unspecified, uncomplicated; Z79.899 Other long term (current) drug therapy
CPT/HCPCS: 99281; 99283

== ENCOUNTER 2022-11-21 11:13 | Emergency (ER) | payer MEDICARE, MEDICAID ==
--- NOTE | 2022-11-21 13:04 | ED Physician Documentation ---
History of Present Illness - Stated complaint Stated Complaint: CONGESTION,SOA - Chief complaint Chief Complaint: Heent - Additonal information Additional information: Patient is 37-year-old male presenting to the emergency department with sore throat and congestion. 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 He has a past medical history significant for being wheelchair-bound secondary to cerebral palsy. Review of Systems Constitutional: denies: Fever Nose: reports: Rhinorrhea / runny nose, Congestion Throat: reports: Sore throat Cardiac: denies: Chest pain / pressure Respiratory: reports: Cough. denies: Dyspnea PD PAST MEDICAL HISTORY - Past Medical History Cardiovascular: None Respiratory: None Neuro: Cerebral palsy (with spasticity and back pain chronically.) Endocrine/Autoimmune: None GI: None : Other HEENT: None Psych: Anxiety, ADD/ADHD, Other Musculoskeletal: Paraplegia Derm: None - Past Surgical History Past Surgical History: No - Present Medications Home Medications: Ambulatory Orders Medication Instructions Recorded Confirmed Buprenorphine 1 patch TOP ONCE 11/06/20 06/30/22 Dantrolene Sodium [Dantrium] 75 mg PO TID 11/06/20 06/30/22 Metoclopramide [Reglan] 10 mg PO Q6H PRN #20 tablet 11/06/20 06/30/22 Hydrocortisone 1% Cream 1 applic TOP BID #28 gm 10/07/21 06/30/22 [Hydrocortisone] Cyclobenzaprine [Flexeril] 10 mg PO TID PRN #20 tablet 03/17/22 06/30/22 Meloxicam [Mobic] 7.5 mg PO BID PRN #20 tablet 03/17/22 06/30/22 Oxycodone HCl [Roxicodone] 5 - 10 mg PO Q6H PRN #14 tablet 03/17/22 06/30/22 HYDROcod/ACETAM 5/325 [[place] 5/325] 1 - 2 tablet PO Q6H PRN #14 tablet 06/30/22 Cetirizine HCl/Pseudoephedrine 1 tab PO BID PRN #20 tab 11/06/22 [Zyrtec-D ER 5 mg-120 mg Tablet] Cephalexin Suspension [Keflex] 500 mg PO TID 5 Days #150 ml 11/11/22 Nystatin [Mycostatin] 10 ml PO TID 5 Days #150 ml 11/11/22 guaiFENesin [Chest Congestion 200 mg PO Q6H PRN #240 ml 11/11/22 Relief] Cephalexin Suspension [Keflex] 500 mg PO QID 5 Days #1 each 11/21/22 - Allergies Allergies/Adverse Reactions: Allergies Allergy/AdvReac Type Severity Reaction Status Date / Time diazepam [From Valium] Allergy Unknown Verified 11/21/22 11:33 diphenhydramine Allergy Unknown Verified 11/21/22 11:33 [From Benadryl] acetaminophen [From Tylenol] AdvReac Dizziness Verified 11/21/22 11:33 aspirin AdvReac Unknown Verified 11/21/22 11:33 [email or web address] [From Chantix] AdvReac Anxiety Verified 11/21/22 11:33 - Social History Does the pt smoke?: Yes Smoking Status: Current every day smoker Does the pt drink ETOH?: No Does the pt have substance abuse?: Yes - Immunizations Immunizations are current?: No - POLST Patient has POLST: No PD ED PE NORMAL - Vitals Vital signs reviewed: Yes - General General: Alert and oriented X 3 - HEENT HEENT: Atraumatic, PERRL, EOMI, Moist mucous membranes - Neck Neck: Supple, no meningeal sign - Cardiac Cardiac: RRR, No gallop - Respiratory Respiratory: No respiratory distress, Clear bilaterally - Abdomen Abdomen: Normal bowel sounds - Male Male : Deferred - Rectal Rectal: Deferred - Derm Derm: Normal color Results - Vitals Vitals: Oxygen O2 Source Room air PD Medical Decision Making - ED course Complexity details: considered differential, d/w patient ED course: Patient presents to the emergency department with chief complaint of congestion sore throat ongoing times greater than 1 week. Afebrile, hemodynamically stable on arrival to the emergency department. Clear aeration in all lung shaw and no respiratory distress. No significant erythema, exudates in the posterior oropharynx. No uvular deviation, sublingual elevation or tracheal immobility that would be suggestive of deep space neck infection. Patient otherwise quite well-appearing here in the ED. He requested a repeat prescription for Keflex stating that he was unable to take his previous prescription for antibiotics. We will it is uncertain whether or not there is a clear indication of bacterial infection I will provide this for him and the interest of shared decision making. I will encourage him to follow-up carefully with his primary care doctor or return to the emergency department for new or worsening symptoms. Departure - Departure Disposition: 01 Home, Self Care Clinical Impression: Pharyngitis, URI (upper respiratory infection) Instructions: ED Pharyngitis Viral Prescriptions: Cephalexin Suspension [Keflex] 500 mg PO QID 5 Days #1 each Comments: Thank you for allowing us to care for you today would be general. I have rewritten your prescription for the antibiotics that were prescribed for you on the sixth. Please increase your intake and fiber for fluids and natural probiotics while taking these medications. It is important that you take them as prescribed in order for them to be effective. Please follow-up with your primary care doctor. Discharge Date/Time: 11/21/22 13:26
[2022-11-21 13:28] VITALS: BP 120/64
== END 2022-11-21 13:26 | disposition home or self-care (01) ==
LOC: ED 11:13
DX: J06.9 Acute upper respiratory infection, unspecified (principal); J02.9 Acute pharyngitis, unspecified; G80.1 Spastic diplegic cerebral palsy; F17.200 Nicotine dependence, unspecified, uncomplicated; Z99.3 Dependence on wheelchair; Z79.899 Other long term (current) drug therapy
CPT/HCPCS: 99282; 99283

== ENCOUNTER 2022-11-27 22:08 | Emergency (ER) | payer MEDICARE, MEDICAID ==
--- NOTE | 2022-11-28 00:04 | ED Physician Documentation ---
History of Present Illness - Stated complaint Stated Complaint: BODY PX - Chief complaint Chief Complaint: General - Additonal information Additional information: Patient complains of several hours of generalized and painful body spasms. Alfred moya is wheelchair-bound. Patient says he has had similar muscle spasms many times in the past, and, in fact, he is working with his neurologist to change his medication regimen to try to better control these intermittent muscle spasms. He has been trying Robaxin as well as Artane and he says that most recently, there is a plan to change person to S[place]. Patient says that these his shift medications have been complicated by shortages at various pharmacies on different medications that he is being prescribed. Review of Systems Constitutional: denies: Fever, Chills, Sweats Throat: reports: Sore throat (He has been having a sore throat for nearly a week, has been evaluated both in this emergency department as well as in the out patient setting as recently as earlier today at a walk-in clinic; patient says this sore throat is being addressed with testing that is already been performed and medications) PD PAST MEDICAL HISTORY - Past Medical History Cardiovascular: None Respiratory: None Neuro: Cerebral palsy (with spasticity and back pain chronically.) Endocrine/Autoimmune: None GI: None : Other HEENT: None Psych: Anxiety, ADD/ADHD, Other Musculoskeletal: Paraplegia Derm: None - Past Surgical History Past Surgical History: No - Present Medications Home Medications: Ambulatory Orders Medication Instructions Recorded Confirmed Buprenorphine 1 patch TOP ONCE 11/06/20 06/30/22 Dantrolene Sodium [Dantrium] 75 mg PO TID 11/06/20 06/30/22 Metoclopramide [Reglan] 10 mg PO Q6H PRN #20 tablet 11/06/20 06/30/22 Hydrocortisone 1% Cream 1 applic TOP BID #28 gm 10/07/21 06/30/22 [Hydrocortisone] Cyclobenzaprine [Flexeril] 10 mg PO TID PRN #20 tablet 03/17/22 06/30/22 Meloxicam [Mobic] 7.5 mg PO BID PRN #20 tablet 03/17/22 06/30/22 Oxycodone HCl [Roxicodone] 5 - 10 mg PO Q6H PRN #14 tablet 03/17/22 06/30/22 HYDROcod/ACETAM 5/325 [[place] 5/325] 1 - 2 tablet PO Q6H PRN #14 tablet 06/30/22 Cetirizine HCl/Pseudoephedrine 1 tab PO BID PRN #20 tab 11/06/22 [Zyrtec-D ER 5 mg-120 mg Tablet] Cephalexin Suspension [Keflex] 500 mg PO TID 5 Days #150 ml 11/11/22 Nystatin [Mycostatin] 10 ml PO TID 5 Days #150 ml 11/11/22 guaiFENesin [Chest Congestion 200 mg PO Q6H PRN #240 ml 11/11/22 Relief] Cephalexin Suspension [Keflex] 500 mg PO QID 5 Days #1 each 11/21/22 diazePAM [Valium] 5 mg PO TID PRN #20 tablet 11/28/22 - Allergies Allergies/Adverse Reactions: Allergies Allergy/AdvReac Type Severity Reaction Status Date / Time diphenhydramine Allergy Unknown Verified 11/27/22 22:10 [From Benadryl] acetaminophen [From Tylenol] AdvReac Dizziness Verified 11/27/22 22:10 aspirin AdvReac Unknown Verified 11/27/22 22:10 varenicline [From Chantix] AdvReac Anxiety Verified 11/27/22 22:10 - Social History Does the pt smoke?: Yes Smoking Status: Current every day smoker Does the pt drink ETOH?: No Does the pt have substance abuse?: Yes - Immunizations Immunizations are current?: No - POLST Patient has POLST: No PD ED PE NORMAL - Vitals Vital signs reviewed: Yes - General General: Alert and oriented X 3, No acute distress, Well developed/nourished, Other (Patient is sitting in his wheelchair with a safety strap across his chest, leaning towards his left; patient says he is using a strap and leaning over because of the recurrent muscle spasms he has been having tonight.) - Cardiac Cardiac: RRR, No murmur - Respiratory Respiratory: No respiratory distress, Clear bilaterally Results - Vitals Vitals: Vital Signs - 24 hr 11/27/22 11/28/22 22:10 03:52 Temperature 36.5 C Heart Rate 96 91 Respiratory 16 16 Rate Blood Pressure 140/68 H 132/63 H O2 Saturation 100 99 Oxygen O2 Source Room air PD Medical Decision Making - ED course Complexity details: re-evaluated patient, considered differential, d/w patient ED course: This is patient's fourth visit to this emergency department this month. The previous 3 visits were related to sore throat and odynophagia. Tonight, the patient is here for painful muscle spasms that are diffuse; he says he has had these many times before, and he believes that they are worse lately because he is titrating off of some of his medications while starting others. He is running into some problems with some of his medications being out of stock at some of the pharmacies he uses. We discussed options for treatment, trying to figure what medication(s) have worked for him in the past. I recommended diazepam/Valium, and he says this medication has worked on his spasms in the past. He is given 2.5 mg IM Valium and I will be providing a prescription for short course of p.o. Valium to be used as needed until the symptoms are controlled with other medications and/or he can follow-up with his neurologist On reevaluation, he says that the 2.5 mg of Valium did not have adequate effect. He is thus given a second dose of 2.5 mg of IM Valium. On subsequent reevaluation, he is in NAD, reports improvement in symptoms although still has spasms and pain is predominantly left leg at this point. He is thus given 5 mg p.o. Valium and then discharged Departure - Departure Disposition: 01 Home, Self Care Clinical Impression: Muscle spasm Condition: Good Instructions: ED Spasm Muscle Prescriptions: diazePAM [Valium] 5 mg PO TID PRN #20 tablet PRN Reason: Spasms Comments: You were given diazepam (Valium) in the emergency department. You were given 2 doses of 2.5 mg each for a total of 5 mg. This seems to have improved your muscle spasms. Before discharge, you were also given a 5 mg oral dose of the same medication. I am electronically submitting a prescription for 5 mg diazepam to the [facility] in [place]. Contact your neurologist and let that office know about this prescription. Discharge Date/Time: 11/28/22 03:53
[2022-11-28] MEDS ORDERED: diazePAM INJ 5 MG/ML SYRINGE IM STA ×2 (01:32)
[2022-11-28] MEDS ORDERED: diazePAM 5 MG TABLET PO STA (03:37)
[2022-11-28 03:55] VITALS: BP 132/63
== END 2022-11-28 03:53 | disposition home or self-care (01) ==
LOC: ED 22:08
DX: M62.838 Other muscle spasm (principal); F17.200 Nicotine dependence, unspecified, uncomplicated
CPT/HCPCS: 96372; 99283; A9270

== ENCOUNTER 2022-12-12 05:21 | Emergency (ER) | payer MEDICARE, MEDICAID ==
[2022-12-12 05:45] VITALS: BP 129/79
[2022-12-12] MEDS ORDERED: DIATRIZOATE MEGLU/DIATRIZO SOD 30 ML BOTTLE PO ONE (06:03)
[2022-12-12] MEDS ORDERED: DIATR MEGLU/DIATRIZOATE SODIUM 120 ML BOTTLE ONE (06:24)
--- NOTE | 2022-12-12 07:42 | ED Physician Documentation ---
History of Present Illness - Stated complaint Stated Complaint: BLOATING/FEEDING TUBE - Chief complaint Chief Complaint: General - History obtained from History obtained from: Patient - Additonal information Additional information: 37yM with CP, autism, p/w feeding tube issue after he believes it may have been partially dislodged when it became tangled in his wheelchair. patient feels bloated and uncomfortable but denies pain PD PAST MEDICAL HISTORY - Past Medical History Cardiovascular: None Respiratory: None Neuro: Cerebral palsy (with spasticity and back pain chronically.) Endocrine/Autoimmune: None GI: None : Other HEENT: None Psych: Anxiety, ADD/ADHD, Other Musculoskeletal: Paraplegia Derm: None - Past Surgical History Past Surgical History: No - Present Medications Home Medications: Ambulatory Orders Medication Instructions Recorded Confirmed Buprenorphine 1 patch TOP ONCE 11/06/20 06/30/22 Dantrolene Sodium [Dantrium] 75 mg PO TID 11/06/20 06/30/22 Metoclopramide [Reglan] 10 mg PO Q6H PRN #20 tablet 11/06/20 06/30/22 Hydrocortisone 1% Cream 1 applic TOP BID #28 gm 10/07/21 06/30/22 [Hydrocortisone] Cyclobenzaprine [Flexeril] 10 mg PO TID PRN #20 tablet 03/17/22 06/30/22 Meloxicam [Mobic] 7.5 mg PO BID PRN #20 tablet 03/17/22 06/30/22 Oxycodone HCl [Roxicodone] 5 - 10 mg PO Q6H PRN #14 tablet 03/17/22 06/30/22 HYDROcod/ACETAM 5/325 [[place] 5/325] 1 - 2 tablet PO Q6H PRN #14 tablet 06/30/22 Cetirizine HCl/Pseudoephedrine 1 tab PO BID PRN #20 tab 11/06/22 [Zyrtec-D ER 5 mg-120 mg Tablet] Cephalexin Suspension [Keflex] 500 mg PO TID 5 Days #150 ml 11/11/22 Nystatin [Mycostatin] 10 ml PO TID 5 Days #150 ml 11/11/22 guaiFENesin [Chest Congestion 200 mg PO Q6H PRN #240 ml 11/11/22 Relief] Cephalexin Suspension [Keflex] 500 mg PO QID 5 Days #1 each 11/21/22 diazePAM [Valium] 5 mg PO TID PRN #20 tablet 11/28/22 - Allergies Allergies/Adverse Reactions: Allergies Allergy/AdvReac Type Severity Reaction Status Date / Time diphenhydramine Allergy Unknown Verified 11/27/22 22:10 [From Benadryl] acetaminophen [From Tylenol] AdvReac Dizziness Verified 11/27/22 22:10 aspirin AdvReac Unknown Verified 11/27/22 22:10 varenicline [From Chantix] AdvReac Anxiety Verified 11/27/22 22:10 - Social History Does the pt smoke?: Yes Smoking Status: Current every day smoker Does the pt drink ETOH?: No Does the pt have substance abuse?: Yes - Immunizations Immunizations are current?: No - POLST Patient has POLST: No PD ED PE NORMAL - Vitals Vital signs reviewed: Yes - General General: Alert and oriented X 3, No acute distress, Well developed/nourished - Abdomen Abdomen: Other (G tube in place) - Derm Derm: Normal color, Warm and dry Results - Vitals Vitals: Vital Signs - 24 hr 12/12/22 05:38 Temperature 36.7 C Heart Rate 90 Respiratory 16 Rate Blood Pressure 129/79 O2 Saturation 100 Oxygen O2 Source Room air PD Medical Decision Making - ED course ED course: 37yM presented to the ED for g tube evaluation. patient has enfit model G tube and we were able to find 12cc syringe here in the ED but no 50cc syringe. I offered to conduct KUB study with gastrograffin and inject a few dye loads to confirm placement. alternatively offered to replace the enfit g tube with our own g tubes but patient declined, requesting to be discharged so he can contact his surgeon at [facility] with replacement equipment. Advised to return if he decides to have placement checked here or tube replaced here. Departure - Departure Disposition: 01 Home, Self Care Clinical Impression: Bloating Condition: Stable Comments: You were seen in the ED for evaluation of your feeding tube. We offered to change the tube to a different g tube or to attempt to confirm placement of the tube by dye study and xray but you preferred to follow up outpatient with your surgeon. If you change your mind we can address this issue for you and you can return to the ED.
== END 2022-12-12 07:48 | disposition home or self-care (01) ==
LOC: ED 05:21
DX: R14.0 Abdominal distension (gaseous) (principal); Z43.1 Encounter for attention to gastrostomy
CPT/HCPCS: 99282; 99283

== ENCOUNTER 2022-12-12 16:02 | Outpatient (CLI) | payer MEDICARE, MEDICAID | END 2022-12-12 23:59 | disposition EMS.NT | LOC: EMS 16:02 | DX: Z03.89 Encounter for observation for other suspected diseases and conditions ruled out (principal) ==

== ENCOUNTER 2022-12-12 17:37 | Emergency (ER) | payer MEDICARE, MEDICAID ==
[2022-12-12 17:54] VITALS: BP 121/89
[2022-12-12] MEDS ORDERED: DIATRIZOATE MEGLU/DIATRIZO SOD 30 ML BOTTLE PO ONE (18:05)
--- NOTE | 2022-12-12 18:07 | ED Physician Documentation ---
History of Present Illness - Stated complaint Stated Complaint: RIGID MUSCLES - Chief complaint Chief Complaint: General - Additonal information Additional information: 28-year-old male with known history of cerebral palsy who is partially fed by feeding tube presents the emergency department requesting confirmation that the G-tube is in place. Had an ER visit earlier this morning for similar. He did not have Gastrografin placed through the tube and has been hesitant to use it since. Patient states that occasionally he feels his muscles locked up and he feels that he may have a "storm." Patient states that his muscles lock up on him and freeze for a few minutes before he is able to move them again. At the time of my exam he is moving his arms normally. He did request EMS send him to [place] to be admitted. On presentation the emergency department the patient appears to be at his usual health. He has normal vital signs without tachycardia or hypotension. No fevers. He is sitting comfortably in the wheel chair holding his cigarettes and cell phone Review of Systems Constitutional: denies: Fever Cardiac: reports: Reviewed and negative Respiratory: reports: Reviewed and negative GI: reports: Reviewed and negative PD PAST MEDICAL HISTORY - Past Medical History Cardiovascular: None Respiratory: None Neuro: Cerebral palsy (with spasticity and back pain chronically.) Endocrine/Autoimmune: None GI: None : Other HEENT: None Psych: Anxiety, ADD/ADHD, Other Musculoskeletal: Paraplegia Derm: None - Past Surgical History Past Surgical History: No - Present Medications Home Medications: Ambulatory Orders Medication Instructions Recorded Confirmed Buprenorphine 1 patch TOP ONCE 11/06/20 06/30/22 Dantrolene Sodium [Dantrium] 75 mg PO TID 11/06/20 06/30/22 Metoclopramide [Reglan] 10 mg PO Q6H PRN #20 tablet 11/06/20 06/30/22 Hydrocortisone 1% Cream 1 applic TOP BID #28 gm 10/07/21 06/30/22 [Hydrocortisone] Cyclobenzaprine [Flexeril] 10 mg PO TID PRN #20 tablet 03/17/22 06/30/22 Meloxicam [Mobic] 7.5 mg PO BID PRN #20 tablet 03/17/22 06/30/22 Oxycodone HCl [Roxicodone] 5 - 10 mg PO Q6H PRN #14 tablet 03/17/22 06/30/22 HYDROcod/ACETAM 5/325 [[place] 5/325] 1 - 2 tablet PO Q6H PRN #14 tablet 06/30/22 Cetirizine HCl/Pseudoephedrine 1 tab PO BID PRN #20 tab 11/06/22 [Zyrtec-D ER 5 mg-120 mg Tablet] Cephalexin Suspension [Keflex] 500 mg PO TID 5 Days #150 ml 11/11/22 Nystatin [Mycostatin] 10 ml PO TID 5 Days #150 ml 11/11/22 guaiFENesin [Chest Congestion 200 mg PO Q6H PRN #240 ml 11/11/22 Relief] Cephalexin Suspension [Keflex] 500 mg PO QID 5 Days #1 each 11/21/22 diazePAM [Valium] 5 mg PO TID PRN #20 tablet 11/28/22 - Allergies Allergies/Adverse Reactions: Allergies Allergy/AdvReac Type Severity Reaction Status Date / Time diphenhydramine Allergy Unknown Verified 11/27/22 22:10 [From Benadryl] acetaminophen [From Tylenol] AdvReac Dizziness Verified 11/27/22 22:10 aspirin AdvReac Unknown Verified 11/27/22 22:10 varenicline [From Chantix] AdvReac Anxiety Verified 11/27/22 22:10 - Social History Does the pt smoke?: Yes Smoking Status: Current every day smoker Does the pt drink ETOH?: No Does the pt have substance abuse?: Yes - Immunizations Immunizations are current?: No - POLST Patient has POLST: No PD ED PE NORMAL - General General: Alert and oriented X 3, No acute distress - HEENT HEENT: PERRL - Abdomen Abdomen: Normal bowel sounds, Soft. No: Non tender (G-tube on the left side of the abdomen appears well-seated in place with a clean stoma. Generally nontender abdominal exam) - Back Back: No CVA TTP - Derm Derm: Normal color, Warm and dry, No rash - Extremities Extremities: No deformity - Neuro Neuro: Alert and oriented X 3, peripheral vascular tech 2-12 intact Eye Opening: Spontaneous Motor: Obeys Commands Verbal: Oriented GCS Score: 15 Results - Vitals Vitals: Vital Signs - 24 hr 12/12/22 17:44 Temperature 37.2 C Heart Rate 91 Respiratory 20 Rate Blood Pressure 121/89 H O2 Saturation 99 Oxygen O2 Source Room air - Rads (name of study) ABD xr Relevant Findings:: Final report received (Contrast material opacifies the G- tube with opacification of the gastric lumen. No findings to suggest extraluminal extravasation of contrast) PD Medical Decision Making - ED course Complexity details: reviewed results, d/w patient ED course: Well-appearing 37-year-old male who has a history of cerebral palsy and is wheelchair dependent as well as partial G-tube dependent presents emergency department requesting confirmation that the G-tube is in place. Because of the lack of equipment and the G-tube could not be confirmed as adequately placed this morning in the ED. Patient also reports that he will develop spasms in his arms and legs that lock him up though while here in the emergency department he has been seen to freely move his extremities. He presents with no vital sign abnormality or derangement and appears to be at his usual baseline health. I did inject 30 mL of Gastrografin directly into the G-tube and by interpretation of the radiologist there is nothing to suggest extraluminal extravasation of the contrast confirming placement of the G-tube within the gastric lumen. Patient was notified of this and did request to be discharged home. Departure - Departure Disposition: 01 Home, Self Care Clinical Impression: Gastrostomy tube in place Condition: Stable Comments: Zachery the radiologist does confirm that the G-tube is in place as it should be. You can continue your usual care and medications at home, including use of the G-tube
--- NOTE | 2022-12-12 18:33 | XRAY Report ---
PROCEDURE: Abdomen 1 View X-Ray INDICATIONS: confirm g tube place TECHNIQUE: One view of the abdomen acquired. COMPARISON: 12/13/2021. FINDINGS: Surgical changes and devices: A gastrostomy tube is in place. Injected contrast material appears to o pacify the lumen of the stomach without evidence for extraluminal extravasation.. Bowel: Bowel gas pattern is normal. Soft tissues: No suspicious abdominal calcifications. Visualized solid organ contours appear normal in size. Bones: No suspicious bony lesions. IMPRESSION: Contrast material opacifies the G-tube with opacification of the gastric lumen. No findings to sugges t extraluminal extravasation of contrast. Reviewed by: Eddie Hernandez MD on 12/12/2022 6:31 PM PDT Approved by: Eddie Hernandez MD on 12/12/2022 6:31 PM PDT Station ID: [id number]
== END 2022-12-12 19:17 | disposition home or self-care (01) ==
LOC: ED 17:37
DX: Z43.1 Encounter for attention to gastrostomy (principal); G80.9 Cerebral palsy, unspecified; F17.200 Nicotine dependence, unspecified, uncomplicated; R14.0 Abdominal distension (gaseous)
CPT/HCPCS: 74018; 99282; 99283; 99284; Q9963

== ENCOUNTER 2023-01-01 19:53 | Outpatient (CLI) | payer MEDICARE, MEDICAID | END 2023-01-01 23:59 | disposition EMS.NT | LOC: EMS 19:53 | DX: G89.29 Other chronic pain (principal) ==

== ENCOUNTER 2023-01-01 19:56 | Emergency (ER) | payer MEDICARE, MEDICAID ==
[2023-01-01 20:14] VITALS: BP 131/94
[2023-01-01] MEDS ORDERED: HYDROmorphone 1 MG/ML CARPUJECT IM STA ×2 (20:26→21:14)
--- NOTE | 2023-01-01 20:28 | ED Physician Documentation ---
History of Present Illness - Stated complaint Stated Complaint: FALL - Chief complaint Chief Complaint: General - History obtained from History obtained from: Patient - Additonal information Additional information: He has spastic CP and is in a motorized wheelchair. The wheelchair tipped forward after hitting something and he fell forward. He states he has severe pain everywhere and really cannot identify specifically where the pain is. If I ask him any site on his body if he is hurting there he says yes. There is no loss of consciousness. He does not feel like he has lost function because of any injuries. PD PAST MEDICAL HISTORY - Past Medical History Cardiovascular: None Respiratory: None Neuro: Cerebral palsy (with spasticity and back pain chronically.) Endocrine/Autoimmune: None GI: None : Other HEENT: None Psych: Anxiety, ADD/ADHD, Other Musculoskeletal: Paraplegia Derm: None - Past Surgical History Past Surgical History: No - Present Medications Home Medications: Ambulatory Orders Medication Instructions Recorded Confirmed Buprenorphine 1 patch TOP ONCE 11/06/20 06/30/22 Dantrolene Sodium [Dantrium] 75 mg PO TID 11/06/20 06/30/22 Metoclopramide [Reglan] 10 mg PO Q6H PRN #20 tablet 11/06/20 06/30/22 Hydrocortisone 1% Cream 1 applic TOP BID #28 gm 10/07/21 06/30/22 [Hydrocortisone] Cyclobenzaprine [Flexeril] 10 mg PO TID PRN #20 tablet 03/17/22 06/30/22 Meloxicam [Mobic] 7.5 mg PO BID PRN #20 tablet 03/17/22 06/30/22 Oxycodone HCl [Roxicodone] 5 - 10 mg PO Q6H PRN #14 tablet 03/17/22 06/30/22 HYDROcod/ACETAM 5/325 [[place] 5/325] 1 - 2 tablet PO Q6H PRN #14 tablet 06/30/22 Cetirizine HCl/Pseudoephedrine 1 tab PO BID PRN #20 tab 11/06/22 [Zyrtec-D ER 5 mg-120 mg Tablet] Cephalexin Suspension [Keflex] 500 mg PO TID 5 Days #150 ml 11/11/22 Nystatin [Mycostatin] 10 ml PO TID 5 Days #150 ml 11/11/22 guaiFENesin [Chest Congestion 200 mg PO Q6H PRN #240 ml 11/11/22 Relief] Cephalexin Suspension [Keflex] 500 mg PO QID 5 Days #1 each 11/21/22 diazePAM [Valium] 5 mg PO TID PRN #20 tablet 11/28/22 Cyclobenzaprine HCl 5 mg PO TID PRN #30 tablet 12/28/22 Morphine Sulfate [Morphine Sulfate 1 ml PO Q4H PRN #15 ml 01/01/23 2mg/ml soln] - Allergies Allergies/Adverse Reactions: Allergies Allergy/AdvReac Type Severity Reaction Status Date / Time diphenhydramine Allergy Unknown Verified 01/01/23 20:06 [From Benadryl] acetaminophen [From Tylenol] AdvReac Dizziness Verified 01/01/23 20:06 aspirin AdvReac Unknown Verified 01/01/23 20:06 varenicline [From Chantix] AdvReac Anxiety Verified 01/01/23 20:06 - Social History Does the pt smoke?: Yes Smoking Status: Current every day smoker Does the pt drink ETOH?: No Does the pt have substance abuse?: Yes - Immunizations Immunizations are current?: No - POLST Patient has POLST: No PD ED PE NORMAL - Vitals Vital signs reviewed: Yes - General General: Alert and oriented X 3, No acute distress - HEENT HEENT: PERRL, EOMI - Neck Neck: Supple, no meningeal sign, No bony TTP - Extremities Extremities: Other (Basically diffuse claims tenderness of any site of his arms and legs. When asked what hurts him the most he says his knees and his forearms and his shins bilaterally and symmetrically. There is no deformity. Passive range of motion at any joint does not elicit pain.) - Neuro Neuro: Alert and oriented X 3, No motor deficit, No sensory deficit, Normal speech Eye Opening: Spontaneous Motor: Obeys Commands Verbal: Oriented GCS Score: 15 - Psych Psych: Normal mood, Normal affect Results - Vitals Vitals: Vital Signs - 24 hr 01/01/23 20:03 Temperature 37.0 C Heart Rate 129 H Respiratory 16 Rate Blood Pressure 131/94 H O2 Saturation 100 Oxygen O2 Source Room air - Rads (name of study) XRs B Forearms and B TibFibs are neg Relevant Findings:: Final report received, EMP independent interpretation of test PD Medical Decision Making - ED course ED course: 37-year-old gentleman with diffuse body pain after a fall. It was difficult to identify any specific spot that was hurting more than another. On review of his last ACOSTA I noted that his morphine volume that he was prescribed this month was much less than and months prior. In months prior he was getting 420 mL of liquid morphine and this month he only got 15 mL. I discussed with with him and He told me a convoluted story of why he was immediately discharged from pain management. And now it makes more sense that he is undergoing narcotic with drawal. Looking at the prescription record it looks like there was no plan to taper or assistance with his withdrawal. As such I agreed to give him a very small dose/prescription of his morphine and recommended that he called [facility] tomorrow. Departure - Departure Disposition: 01 Home, Self Care Clinical Impression: Right arm pain, Left arm pain, Right leg pain, Left leg pain, Narcotic withdrawal Fall from wheelchair Qualifiers: Encounter type: initial encounter Qualified Code(s): W05.0XXA - Fall from non- moving wheelchair, initial encounter Condition: Good Record reviewed to determine appropriate education?: Yes Instructions: ED Contusion Lower Ext, ED Contusion Upper Ext Prescriptions: Morphine Sulfate [Morphine Sulfate 2mg/ml soln] 1 ml PO Q4H PRN #15 ml PRN Reason: pain Comments: I sent your prescription electronically to the [facility] pharmacy on the corner of [address] [facility] in [place]. To assist with your narcotic withdrawal, I recommend calling [facility]. They have an office in [place]. Phone number is [phone]. Call your doctor to arrange a follow-up appointment, make the next available appointment. In the interim, return anytime if worse or if new symptoms develop. I am prescribing a short course of narcotic pain medication for you. These are potentially dangerous and addictive medications that should be used carefully. These medications may constipate you. Take an [id number]-[id number] stool softener (docusate) twice daily with plenty of water while taking these medications. If you go 24 hours without a bowel movement, take [id number] miralax, per package instructions. Do not drink or drive while taking these medications. If you received narcotic or sedating medications while in the emergency department, do not drive for 24 hours. Store this medication in a safe, secure place and out of reach of children. It is a violation of federal law to give or sell this medication to another person or to use in a manner other than prescribed. The ED will not refill narcotic prescriptions, including prescriptions lost or stolen. To dispose of unwanted medications: 1. [facility] provides a drop box for medication in pill form only (no liquids) 8:00 am to 4:30 p.m. Thursday-Thursday in the lobby of the [facility], [address] [place] [address]. Empty pills into ziplock bag before disposal. Call [phone] for information. 2.[employer] is a free service available to all [facility] residents. Go to [email or web address] Note that many narcotic pain relievers also contain Tylenol/acetaminophen. Please ensure that your total dose of acetaminophen from all sources does not exceed 3 g (3000 mg) per day. Forms: PCP List Discharge Date/Time: 01/01/23 23:03
--- NOTE | 2023-01-01 23:30 | XRAY Report ---
PROCEDURE: Forearm BILAT INDICATIONS: arm/leg inj TECHNIQUE: 2 views of the forearm were acquired. COMPARISON: None. FINDINGS: Bones: No fractures or dislocations. No suspicious bony lesions. Soft tissues: No suspicious soft tissue calcifications or masses. IMPRESSION: No acute bony abnormality. Reviewed by: Sean Elias MD on 01/01/2023 11:29 PM PDT Approved by: Sean Elias MD on 01/01/2023 11:29 PM PDT Station ID: [id number]
--- NOTE | 2023-01-01 23:31 | XRAY Report ---
PROCEDURE: Tib/Fib BILAT INDICATIONS: arm/leg inj TECHNIQUE: 7 views of the tibia and fibula were acquired. COMPARISON: None. FINDINGS: Bones: No fractures or dislocations. No suspicious bony lesions. Soft tissues: No suspicious soft tissue calcifications or masses. IMPRESSION: 1. No fracture or dislocation. Reviewed by: Sean Elias MD on 01/01/2023 11:30 PM PDT Approved by: Sean Elias MD on 01/01/2023 11:30 PM PDT Station ID: [id number]
== END 2023-01-01 23:03 | disposition home or self-care (01) ==
LOC: EDUNIT# → ED 19:56
DX: M79.602 Pain in left arm (principal); M79.601 Pain in right arm; M79.605 Pain in left leg; M79.604 Pain in right leg; W05.0XXA Fall from non-moving wheelchair, initial encounter; G80.1 Spastic diplegic cerebral palsy; F17.200 Nicotine dependence, unspecified, uncomplicated; Z79.899 Other long term (current) drug therapy
CPT/HCPCS: 73090; 73590; 96372; 99283; 99284; J1170

== ENCOUNTER 2023-01-03 12:13 | Emergency (ER) | payer MEDICARE, MEDICAID ==
[2023-01-03] MEDS ORDERED: HYDROmorphone 1 MG/ML CARPUJECT IM STA (14:37)
--- NOTE | 2023-01-03 14:47 | ED Physician Documentation ---
History of Present Illness - Stated complaint Stated Complaint: BODY PAIN - Chief complaint Chief Complaint: General - Additonal information Additional information: Altered mental status 37-year-old male has known history of CP and frequent visits to the emergency department presents for evaluation generalized body pain. He is wheelchair tipped forward on and he fell. He had been seen in the emergency department after the incident reporting severe pain everywhere. Provider at that time did not find there is any focal area of pain. There was concern that the patient may have potentially been in opioid withdrawal. Patient received some Flexeril, Valium and a prescription for morphine. He reports when he was discharged on he went home and slept all of Thursday until this morning reporting now he has pain. He was unable to fill the prescription that is waiting for him at the pharmacy. He denies any sudden severe headache, any focal or new neurodeficits. He tells me that he is hoping to get into an assisted living facility to help with his care needs. Review of Systems Constitutional: denies: Fever, Chills Musculoskeletal: reports: Other (generalized pain) Neurologic: reports: Reviewed and negative Psychiatric: reports: Reviewed and negative PD PAST MEDICAL HISTORY - Past Medical History Cardiovascular: None Respiratory: None Neuro: Cerebral palsy (with spasticity and back pain chronically.) Endocrine/Autoimmune: None GI: None : Other HEENT: None Psych: Anxiety, ADD/ADHD, Other Musculoskeletal: Paraplegia Derm: None - Past Surgical History Past Surgical History: No - Present Medications Home Medications: Ambulatory Orders Medication Instructions Recorded Confirmed Buprenorphine 1 patch TOP ONCE 11/06/20 06/30/22 Dantrolene Sodium [Dantrium] 75 mg PO TID 11/06/20 06/30/22 Metoclopramide [Reglan] 10 mg PO Q6H PRN #20 tablet 11/06/20 06/30/22 Hydrocortisone 1% Cream 1 applic TOP BID #28 gm 10/07/21 06/30/22 [Hydrocortisone] Cyclobenzaprine [Flexeril] 10 mg PO TID PRN #20 tablet 03/17/22 06/30/22 Meloxicam [Mobic] 7.5 mg PO BID PRN #20 tablet 03/17/22 06/30/22 Oxycodone HCl [Roxicodone] 5 - 10 mg PO Q6H PRN #14 tablet 03/17/22 06/30/22 HYDROcod/ACETAM 5/325 [Dillon 5/325] 1 - 2 tablet PO Q6H PRN #14 tablet 06/30/22 Cetirizine HCl/Pseudoephedrine 1 tab PO BID PRN #20 tab 11/06/22 [Zyrtec-D ER 5 mg-120 mg Tablet] Cephalexin Suspension [Keflex] 500 mg PO TID 5 Days #150 ml 11/11/22 Nystatin [Mycostatin] 10 ml PO TID 5 Days #150 ml 11/11/22 guaiFENesin [Chest Congestion 200 mg PO Q6H PRN #240 ml 11/11/22 Relief] Cephalexin Suspension [Keflex] 500 mg PO QID 5 Days #1 each 11/21/22 diazePAM [Valium] 5 mg PO TID PRN #20 tablet 11/28/22 Cyclobenzaprine HCl 5 mg PO TID PRN #30 tablet 12/28/22 Morphine Sulfate [Morphine Sulfate 1 ml PO Q4H PRN #15 ml 01/01/23 2mg/ml soln] - Allergies Allergies/Adverse Reactions: Allergies Allergy/AdvReac Type Severity Reaction Status Date / Time diphenhydramine Allergy Unknown Verified 01/01/23 20:06 [From Benadryl] acetaminophen [From Tylenol] AdvReac Dizziness Verified 01/01/23 20:06 aspirin AdvReac Unknown Verified 01/01/23 20:06 [email or web address] [From Chantix] AdvReac Anxiety Verified 01/01/23 20:06 - Social History Does the pt smoke?: Yes Smoking Status: Current every day smoker Does the pt drink ETOH?: No Does the pt have substance abuse?: Yes - Immunizations Immunizations are current?: No - POLST Patient has POLST: No PD ED PE NORMAL - General General: Alert and oriented X 3 - HEENT HEENT: PERRL, EOMI - Neck Neck: Supple, no meningeal sign - Cardiac Cardiac: RRR - Extremities Extremities: No deformity, Other (No obvious ecchymosis or abrasions on brief review of the skin chest thorax and cranium.) Results - Vitals Vitals: Vital Signs - 24 hr 01/03/23 12:16 Temperature 37 C Heart Rate 103 H Respiratory 16 Rate Blood Pressure 130/79 O2 Saturation 100 Oxygen O2 Source Room air PD Medical Decision Making - ED course Complexity details: d/w patient ED course: 37-year-old male with a known history of cerebral palsy presents emergency department for evaluation of unabated pain. He slept through the last 24 hours and did not fill his prescription of morphine which is currently waiting for him at the pharmacy. He does have transportation issues and states he cannot fill his pain medicine at any other pharmacy other than [facility]. As such I have administered the patient 1 mg of Dilaudid. He will not be able to fill the prescription until Thursday morning. I suspect he will return in the ensuing 24 hours to receive more pain meds before he is able to fill his prescription. Clinically he is without signs of traumatic injury after the fall from the wheelchair and no imaging was ordered today. He is discharged in what appears to be his usual baseline health, stable condition and appropriate vital signs for age and history. Departure - Departure Disposition: 01 Home, Self Care Clinical Impression: Generalized pain Condition: Stable Record reviewed to determine appropriate education?: Yes Comments: [place] you do have a prescription for morphine waiting for you at the [facility] pharmacy. It should be available for you to picking tech on Thursday. We have administered 1 mg of Dilaudid to you today here in the emergency department.
[2023-01-03 15:33] VITALS: BP 134/86
== END 2023-01-03 15:39 | disposition home or self-care (01) ==
LOC: ED 12:13
DX: R52 Pain, unspecified (principal); G80.1 Spastic diplegic cerebral palsy; F17.200 Nicotine dependence, unspecified, uncomplicated; Z79.899 Other long term (current) drug therapy
CPT/HCPCS: 96372; 99282; 99283; J1170

== ENCOUNTER 2023-02-02 22:29 | Emergency (ER) | payer MEDICARE, MEDICAID ==
[2023-02-02 22:45] VITALS: BP 126/72; O2SAT 100
[2023-02-02] MEDS ORDERED: diazePAM 5 MG TABLET PO STA (23:03)
--- NOTE | 2023-02-02 23:38 | ED Physician Documentation ---
PD HPI MHE - Stated complaint Stated Complaint: MHE - Chief complaint Chief Complaint: MHE - History obtained from History obtained from: Patient - Additional information Additional information: The patient comes to the emergency department with chief complaint of "my PTSD is really triggered right now". He states that his PTSD was triggered because he lost his phone and could not find it. He states he called 911 and that multiple emergency personnel showed up and spent "6 hours looking for it". He states that this caused his PTSD to flareup and as such, that his mental processes slowed down greatly. He also states that he believes he is slowly committing suicide by smoking "way too much tobacco". He would like to stay in the emergency department all night and see a social media marketing specialist for these issues in the morning. The patient denies any suicidal or homicidal ideation currently. He denies any hallucinations. He states that he does not feel that his living situation is good, but denies working with his case management social worker and [employer] to Get set up with a different situation. No other complaints at this time. The patient does not feel physically ill. PD PAST MEDICAL HISTORY - Past Medical History Cardiovascular: None Respiratory: None Neuro: Cerebral palsy Endocrine/Autoimmune: None GI: None : Other HEENT: None Psych: Anxiety, ADD/ADHD, Other Musculoskeletal: Paraplegia Derm: None - Past Surgical History Past Surgical History: No - Present Medications Home Medications: Ambulatory Orders Medication Instructions Recorded Confirmed diazePAM [Valium] 5 mg PO TID PRN #20 tablet 11/28/22 02/03/23 HYDROmorphone [Dilaudid] 2 mg PO Q4H PRN #10 tablet 02/03/23 - Allergies Allergies/Adverse Reactions: Allergies Allergy/AdvReac Type Severity Reaction Status Date / Time diphenhydramine Allergy Unknown Verified 02/03/23 10:29 [From Benadryl] acetaminophen [From Tylenol] AdvReac Dizziness Verified 02/03/23 10:29 aspirin AdvReac Unknown Verified 02/03/23 10:29 [email or web address] [From Chantix] AdvReac Anxiety Verified 02/03/23 10:29 - Social History Does the pt smoke?: Yes Smoking Status: Current every day smoker Does the pt drink ETOH?: No Does the pt have substance abuse?: Yes - Immunizations Immunizations are current?: No - POLST Patient has POLST: No PD ED PE NORMAL - Vitals Vital signs reviewed: Yes - General General: Alert and oriented X 3, No acute distress, Well developed/nourished, Other (The patient is calm and cooperative) - HEENT HEENT: Atraumatic, PERRL, EOMI, Moist mucous membranes - Neck Neck: Supple, no meningeal sign - Cardiac Cardiac: RRR, No murmur - Respiratory Respiratory: No respiratory distress, Clear bilaterally - Abdomen Abdomen: Soft, Non tender, Non distended - Derm Derm: Normal color, Warm and dry, No rash - Extremities Extremities: Other (Chronic deformity and atrophy of bilateral lower extremities.) - Neuro Neuro: Alert and oriented X 3 - Psych Psych: Normal mood, Normal affect Results - Vitals Vitals: Oxygen O2 Source Room air PD Medical Decision Making - ED course Complexity details: considered differential, d/w patient ED course: I discussed with the patient that he is calm, articulate, and not an imminent threat to himself. We have seen this patient many times in the emergency department and have attempted to address his living situation, but the patient has not followed through with recommendations. I discussed with him that he does have resources at his disposal to get into better housing, should he choose to avail himself of those resources. As far as staying in the emergency department all night to see social work in the morning, I do not feel this is emergently medically indicated. The patient is not a danger to himself, he is not gravely disabled, and his report of PTSD flare and associated symptoms that he personally reports is not such as to place the patient in a compromised or dangerous situation. I have encouraged him to quit smoking but again this is not an imminent suicide threat. I have offered the patient a dose of Valium in the emergency department, which is what he is normally on for his PTSD/anxiety. He states he is already taken his 10 mg dose at home and it did not seem to do much and asks if he can have a 15 mg dose instead. He has received this in the emergency department. I have discussed encouraged him to continue working on his chronic medical, mental health, and social situation as an outpatient. We have discussed the usual indications for return. Departure - Departure Disposition: 01 Home, Self Care Clinical Impression: PTSD (post-traumatic stress disorder) Condition: Stable Instructions: ED Stress React Comments: You have been treated today with a dose of Valium that is a little larger than what you normally take at home. Unfortunately, you have many chronic issues that, while resulting in some difficulties for you, are not emergent in nature and cannot be solved by the emergency department or its resources. The issue with housing has been a longstanding 1 for you and it is important that you work with your outpatient resources to set up a better situation for yourself. As far as your PTSD, you are neither gravely disabled from an emergency perspective tonight nor an imminent danger to yourself. Smoking is a bad habit that Can result in health problems down the line, but does not present an imminent danger to your life at this moment. As such, while you do have some mental health issues and some social factors that play into your general situation, there is no indication for holding in the emergency department tonight. You are best off going home and getting some sleep and speaking with your mental health resources tomorrow. If you feel you need emergent treatment otherwise, at some future point, you may always return to the emergency department. Forms: PCP List Discharge Date/Time: 02/02/23 23:46
== END 2023-02-02 23:46 | disposition home or self-care (01) ==
LOC: ED 22:29
DX: F43.10 Post-traumatic stress disorder, unspecified (principal); Z72.0 Tobacco use
CPT/HCPCS: 99282; 99283; A9270

== ENCOUNTER 2023-02-03 10:21 | Emergency (ER) | payer MEDICARE, MEDICAID ==
[2023-02-03 10:38] VITALS: BP 122/71; O2SAT 99
--- NOTE | 2023-02-03 11:04 | ED Physician Documentation ---
History of Present Illness - Stated complaint Stated Complaint: MHE - Chief complaint Chief Complaint: MHE - Additonal information Additional information: 37-year-old male returns to the emergency department requesting help with his underlying psychiatric diagnoses. States he is spiraling into a major manic depressive episode. Was seen last night and received an extra dose of Valium which was only marginally helpful. Patient denies SI or HI but feels that his mental health is inhibiting his ability to manage the other chronic conditions in his life. feels he is having difficulty caring for himself... Patient does have a history of spastic CP and is wheelchair dependent. Review of Systems Constitutional: denies: Fever Eyes: reports: Reviewed and negative Cardiac: reports: Reviewed and negative Respiratory: reports: Reviewed and negative GI: reports: Reviewed and negative : reports: Reviewed and negative Skin: reports: Reviewed and negative Musculoskeletal: reports: Reviewed and negative Psychiatric: reports: Depressed, Anxiety, Insomnia. denies: Suicidal, Homicidal Endocrine: reports: Reviewed and negative PD PAST MEDICAL HISTORY - Past Medical History Past Medical History: Yes Cardiovascular: None Respiratory: None Neuro: Cerebral palsy Endocrine/Autoimmune: None GI: Other : Incontinence, Frequency, Other HEENT: Chronic hearing loss Psych: Anxiety, ADD/ADHD, Post traumatic stress disorder, Other Musculoskeletal: Paraplegia, Chronic back pain, Other Derm: Psoriasis - Past Surgical History Past Surgical History: Yes - Present Medications Home Medications: Ambulatory Orders Medication Instructions Recorded Confirmed diazePAM [Valium] 5 mg PO TID PRN #20 tablet 11/28/22 02/03/23 HYDROmorphone [Dilaudid] 2 mg PO Q4H PRN #10 tablet 02/03/23 - Allergies Allergies/Adverse Reactions: Allergies Allergy/AdvReac Type Severity Reaction Status Date / Time diphenhydramine Allergy Unknown Verified 02/03/23 10:29 [From Benadryl] acetaminophen [From Tylenol] AdvReac Dizziness Verified 02/03/23 10:29 aspirin AdvReac Unknown Verified 02/03/23 10:29 [email or web address] [From Chantix] AdvReac Anxiety Verified 02/03/23 10:29 - Social History Does the pt smoke?: Yes Smoking Status: Current every day smoker Does the pt drink ETOH?: No Does the pt have substance abuse?: Yes Substance Use and Type: Marijuana - Immunizations Immunizations are current?: Yes - POLST Patient has POLST: No PD ED PE NORMAL - General General: Alert and oriented X 3, No acute distress, Well developed/nourished, Other (in wheelchair) - HEENT HEENT: PERRL - Cardiac Cardiac: RRR, No murmur - Respiratory Respiratory: No respiratory distress, Clear bilaterally - Derm Derm: Normal color, Warm and dry, No rash - Extremities Extremities: No deformity - Neuro Neuro: Alert and oriented X 3, guest relations agent 2-12 intact Eye Opening: Spontaneous Motor: Obeys Commands Verbal: Oriented GCS Score: 15 Results - Vitals Vitals: Vital Signs - 24 hr 02/03/23 02/03/23 10:29 12:57 Temperature 37.1 C Heart Rate 95 Respiratory 20 20 Rate Blood Pressure 122/71 O2 Saturation 99 Oxygen O2 Source Room air - Labs Labs: Laboratory Tests 02/03/23 02/03/23 02/03/23 11:17 11:21 11:21 WBC 8.8 RBC 4.79 Hgb 14.8 Hct 44.1 MCV 92.1 MCH 30.9 MCHC 33.6 RDW 13.0 Plt Count 273 MPV 9.4 Neut # (Auto) 5.7 Lymph # (Auto) 1.8 [place] # (Auto) 0.7 Eos # (Auto) 0.5 Baso # (Auto) 0.1 Absolute Nucleated RBC 0.00 Nucleated RBC % 0.0 Sodium 140 Potassium 3.8 Chloride 107 Carbon Dioxide 24 Anion Gap 9.0 BUN 9 Creatinine 1.0 Estimated GFR (MDRD) 83 L Glucose 107 H Calcium 9.8 Magnesium 2.0 Total Bilirubin 0.3 AST 10 ALT 7 L Alkaline Phosphatase 73 Total Creatine Kinase 94 Total Protein 7.0 Albumin 4.4 Globulin 2.6 Albumin/Globulin Ratio 1.7 Lipase 33 TSH 0.65 Urine Color YELLOW Urine Clarity CLEAR Urine pH 5.5 Ur Specific [place] 1.025 Urine Protein TRACE Urine Glucose (UA) NEGATIVE Urine Ketones NEGATIVE Urine Occult Blood NEGATIVE Urine Nitrite NEGATIVE Urine Bilirubin NEGATIVE Urine Urobilinogen 0.2 (NORMAL) Ur Leukocyte Esterase NEGATIVE Ur Microscopic Review NOT INDICATED Urine Culture Comments NOT INDICATED Salicylates < 1.5 Urine Opiates Screen NEGATIVE Ur Oxycodone Screen NEGATIVE Urine Methadone Screen NEGATIVE Ur Propoxyphene Screen NEGATIVE Acetaminophen < 0.1 Ur Barbiturates Screen NEGATIVE Ur Tricyclics Screen NEGATIVE Ur Phencyclidine Scrn NEGATIVE Ur Amphetamine Screen NEGATIVE U Methamphetamines Scrn NEGATIVE U Benzodiazepines Scrn POSITIVE H Urine Cocaine Screen NEGATIVE U Cannabinoids Screen NEGATIVE Ethyl Alcohol < 10.0 PD Medical Decision Making - ED course Complexity details: reviewed results, re-evaluated patient, d/w patient ED course: 37-year-old gentleman who has a history of spastic cerebral palsy, wheelchair dependent also with a chronic pain condition presents to the emergency department requesting a mental health evaluation. He had no direct SI or HI but felt that his manic depression was spiraling out of control. The patient was seen last night in the emergency department and received an additional dose of Valium. Patient reports to me that he is recently lost his phone and due to his chronic pain has difficulty using the manual wheelchair as his electric wheelchair often runs out of charge. We did obtain CBC, electrolytes and the usual mental health screening labs today and per my interpretation no acute abnormalities were noted. He was seen by telepsychiatrist Dr. Hendrickson who was able to evaluate him electronically. She feels that the patient likely does not have an acute psychiatric disorder that needs acute management. She feels that he is mostly struggling with care for himself and he is requesting to be placed into an adult family home. Subsequently we did have social work see the patient. The patient understands that he cannot be placed into an adult family home from the emergency department. He is comfortable with this. Social work has filled out the initial [facility] form in order to help facilitate [facility] placement. In the interim I have prescribed a limited amount of Dilaudid to help with the patient's chronic pain. Because he is using the manual wheelchair he has a difficult time getting to and from appointments without appropriate analgesia. He is advised to follow closely with Dr. Redman. Patient was aware that we will not be able to prescribe narcotics moving forward. Departure - Departure Clinical Impression: History of cerebral palsy Chronic pain Qualifiers: Chronic pain type: other chronic pain Qualified Code(s): G89.29 - Other chronic pain Record reviewed to determine appropriate education?: Yes Follow-Up: Ebony Redman MD [Primary Care Provider] - Prescriptions: HYDROmorphone [Dilaudid] 2 mg PO Q4H PRN #10 tablet PRN Reason: Pain >8 Comments: [place] all your labs today were normal. I know that you are struggling with your chronic medical conditions and having a difficult time caring for yourself. You are doing a good job. You have been seen by social work and they are filling out an initial form called the HCS form. This is a form that will be submitted on your behalf in order to help you gain entry into an adult family home. However this process can take weeks and/or months. Please continue to follow with your primary care doctors. I do recommend that you take [id number] medications if you are able for your pain control. For the more severe pain a very limited prescription of Dilaudid has been sent to the [facility] pharmacy. Forms: PCP List
[2023-02-03 11:23] LABS: MUDS CUTOFF CONCENTRATIONS CUTOFF CONC BELOW:
[2023-02-03 11:25] LABS: BILIRUBIN,URINE NEGATIVE (NEGATIVE); GLUCOSE, URINE (UA) NEGATIVE (NEGATIVE); KETONES,URINE (UA) NEGATIVE (NEGATIVE); LEUKOCYTE ESTERASE, URINE NEGATIVE (NEGATIVE); NITRITE,URINE NEGATIVE (NEGATIVE); OCCULT BLOOD,URINE NEGATIVE (NEGATIVE); PH,URINE 5.5 PH (5.0-7.5); PROTEIN,URINE TRACE mg/dL (NEGATIVE); UROBILINOGEN,URINE 0.2 (NORMAL) E.U./dL (NORMAL)
[2023-02-03 11:26] LABS: BASOPHILS # (AUTO) 0.1 10^3/uL (0.0-0.1); BASOPHILS % (AUTO) 0.8 %; EOSINOPHILS # (AUTO) 0.5 10^3/uL (0.0-0.7); EOSINOPHILS % (AUTO) 5.1 %; HCT - HEMATOCRIT 44.1 % (42.0-52.0); HGB - HEMOGLOBIN 14.8 g/dL (14.0-18.0); LYMPHOCYTES # (AUTO) 1.8 10^3/uL (1.5-3.5); LYMPHOCYTES % (AUTO) 20.9 %; MEAN CORPUSCULAR HEMOGLOBIN 30.9 pg (27.0-31.0); MEAN CORPUSCULAR HGB CONC 33.6 g/dL (32.0-36.0); MEAN CORPUSCULAR VOLUME 92.1 fL (80.0-94.0); MEAN PLATELET VOLUME 9.4 fL (7.4-11.4); MONOCYTES # (AUTO) 0.7 10^3/uL (0.0-1.0); MONOCYTES % (AUTO) 7.9 %; NEUTROPHILS # (AUTO) 5.7 10^3/uL (1.5-6.6); PLT - PLATELET COUNT 273 10^3/uL (130-450); RED BLOOD COUNT 4.79 10^6/uL (4.70-6.10); WHITE BLOOD COUNT 8.8 x10^3/uL (4.8-10.8)
[2023-02-03 11:27] LABS: CLARITY,URINE CLEAR (CLEAR)
[2023-02-03 11:35] LABS: AMPHETAMINE SCREEN,URINE NEGATIVE (NEGATIVE); BARBITURATE SCREEN,UR NEGATIVE (NEGATIVE); BENZODIAZEPINES SCREEN, URINE POSITIVE (NEGATIVE); COCAINE SCREEN URINE NEGATIVE (NEGATIVE); METHADONE SCREEN, URINE NEGATIVE (NEGATIVE); METHAMPHETAMINES SCREEN, URINE NEGATIVE (NEGATIVE); OPIATE SCREEN, URINE NEGATIVE (NEGATIVE); OXYCODONE SCREEN, URINE NEGATIVE (NEGATIVE); PROPOXYPHENE SCREEN, URINE NEGATIVE (NEGATIVE); THC CANNABINOID SCREEN, URINE NEGATIVE (NEGATIVE); TRICYCLIC ANTIDEPRESSANT,URINE NEGATIVE (NEGATIVE)
[2023-02-03 11:43] LABS: ALBUMIN 4.4 g/dL (3.2-5.5); ALBUMIN/GLOBULIN RATIO 1.7 (1.0-2.2); ALKALINE PHOSPHATASE 73 IU/L (42-121); ALT ALANINE AMINOTRANSFERASE 7 IU/L (10-60); AST ASPARTATE AMINOTRANSFERASE 10 IU/L (10-42); BILIRUBIN,TOTAL 0.3 mg/dL (0.2-1.0); BUN - BLOOD UREA NITROGEN 9 mg/dL (6-20); CALCIUM 9.8 mg/dL (8.5-10.3); CARBON DIOXIDE - CO2 24 mmol/L (21-32); CHLORIDE 107 mmol/L (101-111); CK- CREATINE KINASE 94 IU/L (30-223); ETOH - ETHANOL < 10.0 mg/dL; GFR - MDRD 83 (>89); GLUCOSE 107 mg/dL (74-104); LIPASE 33 U/L (11-82); POTASSIUM 3.8 mmol/L (3.5-4.5); SODIUM 140 mmol/L (135-145)
[2023-02-03 11:45] LABS: ACETAMINOPHEN < 0.1 ug/mL; SALICYLATE < 1.5 mg/dL
[2023-02-03 11:57] LABS: THYROID STIMULATING HORMONE 0.65 uIU/mL (0.34-5.60)
[2023-02-03] MEDS ORDERED: diazePAM 5 MG TABLET PO STA (12:36)
[2023-02-03] MEDS ORDERED: HYDROmorphone 2 MG TABLET PO STA (13:58)
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
== END 2023-02-03 14:28 | disposition home or self-care (01) ==
LOC: ED 10:21
DX: Z74.1 Need for assistance with personal care (principal); Z74.2 Need for assistance at home and no other household member able to render care; Z99.3 Dependence on wheelchair; G89.29 Other chronic pain; G80.9 Cerebral palsy, unspecified; F17.200 Nicotine dependence, unspecified, uncomplicated
CPT/HCPCS: 36415; 80053; 80306; 80307; 81003; 82550; 83690; 83735; 84443; 85025; 99283; 99284; A9270; G0427; G0480; Q3014; 80320; 80329; 81001; 87086

== ENCOUNTER 2023-02-18 01:29 | Emergency (ER) | payer MEDICARE, MEDICAID ==
[2023-02-18 01:45] VITALS: BP 119/89; O2SAT 100
--- NOTE | 2023-02-18 02:52 | ED Physician Documentation ---
History of Present Illness - Stated complaint Stated Complaint: BODY PX - Chief complaint Chief Complaint: General - History obtained from History obtained from: Patient - Additonal information Additional information: HPI from patient. Patient c/o "focal tremors" (per patient) in LLE causing pain due to muscle spasm, with similar pain and spasms of torso, shoulders. This is a chronic issue but he says it has steadily been worsening in general but particularly worse since this evening. He also c/o generalized anxiety preventing him from sleeping x 2-3 nights. He says he has been prescribed many different medications for these problems but the "only thing that works is combination of hydromorphone and valium" (per patient). Review of Systems Constitutional: denies: Fever Musculoskeletal: reports: Back pain, Extremity pain, Joint pain PD PAST MEDICAL HISTORY - Past Medical History Cardiovascular: None Respiratory: None Neuro: Cerebral palsy Endocrine/Autoimmune: None GI: Other : Incontinence, Frequency, Other HEENT: Chronic hearing loss Psych: Anxiety, ADD/ADHD, Post traumatic stress disorder, Other Musculoskeletal: Paraplegia, Chronic back pain, Other Derm: Psoriasis - Past Surgical History Past Surgical History: Yes - Present Medications Home Medications: Ambulatory Orders Medication Instructions Recorded Confirmed diazePAM [Valium] 5 mg PO TID PRN #20 tablet 11/28/22 02/03/23 HYDROmorphone [Dilaudid] 2 mg PO Q4H PRN #10 tablet 02/03/23 - Allergies Allergies/Adverse Reactions: Allergies Allergy/AdvReac Type Severity Reaction Status Date / Time diphenhydramine Allergy Unknown Verified 02/03/23 10:29 [From Benadryl] acetaminophen [From Tylenol] AdvReac Dizziness Verified 02/03/23 10:29 aspirin AdvReac Unknown Verified 02/03/23 10:29 varenicline [From Chantix] AdvReac Anxiety Verified 02/03/23 10:29 - Social History Does the pt smoke?: Yes Smoking Status: Current every day smoker Does the pt drink ETOH?: No Does the pt have substance abuse?: Yes - Immunizations Immunizations are current?: Yes - POLST Patient has POLST: No PD ED PE NORMAL - Vitals Vital signs reviewed: Yes - General General: Alert and oriented X 3, No acute distress, Well developed/nourished, Other (in wheelchair, NAD) - Extremities Extremities: Other (LLE initially is in position in wheelchair with left foot on the wheelchair foot rest, but early in HPI the LLE is noted to be off to the side laterally from the foot rest) - Neuro Neuro: Alert and oriented X 3 Eye Opening: Spontaneous Motor: Obeys Commands Verbal: Oriented GCS Score: 15 Results - Vitals Vitals: Oxygen O2 Source Room air PD Medical Decision Making - ED course Complexity details: reviewed old records, considered differential, d/w patient ED course: This is patient's [facility]th [facility] ED visit over past 12 months (17 [facility] ED). He has had frequent [facility] ED visits over past (barry is patient's 12th [facility] ED visit over past 3 months). Patient is specifically requesting hydromorphone on barry's visit as well as prescription for same; he also tells me he thinks he needs a higher dose than previously prescribed. I ask patient who is prescribing the hydromorphone and he provides the name of one of his prescribing physicians; I asked again, emphasizing that I am asking about the hydromorphone and not the valium/diazepam. He again says it is prescribed by one of his outpatient providers. I point out to him that the [facility] form does not reflect any recent prescriptions for hydromorphone except from this ED on a recent visit. He then says he misunderstood my question and acknowledges the hydromorphone was from this ED. My concerns for this patient on this encounter include patient requesting specific controlled substance (hydromorphone) and, although not specific dose, he is specifically asking for a higher dose than what was provided on previous ED visit. I also note that patient's legs were both in his wheelchair with feet on the foot rests, and the LLE became lifted off of the foot rest and laterally deviated during the discussion of LLE spasm. Within a few minutes of my leaving the room, I walked past to see another patient and the LLE was again positioned as if at rest and not spastic with foot on the wheelchair foot rest. I explained that when controlled substances are being prescribed to address chronic problems, they should be prescribed and dosing managed by a patient's primary care provider or other, appropriate outpatient provider (such as pain management). I explained that I would order a single IM dose of hydromorphone but would not provide rx. I pointed out to patient that the previous ED provider who prescribed the hydromorphone noted in the chart that "patient was aware that we will not be able to provide narcotics moving forward" (per ED provider note from previous [facility] ED visit). Departure - Departure Disposition: Home, Self Care Clinical Impression: Muscle spasm Chronic pain Qualifiers: Chronic pain type: other chronic pain Qualified Code(s): G89.29 - Other chronic pain Condition: Good Instructions: ED Spasm Muscle Follow-Up: Ebony Redman MD [Primary Care Provider] - Comments: As we discussed, you should contact your medical providers and work on reevaluation/follow-up. In general, controlled substances prescribed for ongoing/chronic problems should be provided by an outpatient provider. You were given a injection of hydromorphone in the ER tonight to address the exacerbation of your pain. Forms: PCP List Discharge Date/Time: 02/18/23 03:45
[2023-02-18] MEDS ORDERED: HYDROmorphone 1 MG/ML CARPUJECT IM STA (03:11)
== END 2023-02-18 03:45 | disposition home or self-care (01) ==
LOC: ED 01:29
DX: M62.838 Other muscle spasm (principal); G89.29 Other chronic pain; F17.200 Nicotine dependence, unspecified, uncomplicated
CPT/HCPCS: 96372; 99283; 99284; J1170

== ENCOUNTER 2023-02-21 18:58 | Outpatient (CLI) | payer MEDICARE, MEDICAID | END 2023-02-21 23:59 | disposition EMS.NT | LOC: EMS 18:58 | DX: Z03.89 Encounter for observation for other suspected diseases and conditions ruled out (principal) ==

== ENCOUNTER 2023-02-23 00:26 | Emergency (ER) | payer MEDICARE, MEDICAID ==
[2023-02-23 00:46] VITALS: BP 119/65; O2SAT 98
[2023-02-23] MEDS ORDERED: HYDROmorphone 1 MG/ML CARPUJECT IM STA (01:11)
[2023-02-23] MEDS ORDERED: diazePAM INJ 5 MG/ML SYRINGE IM STA (01:11)
[2023-02-23] MEDS ORDERED: HYDROmorphone 2 MG/ML VIAL ONE (01:36)
[2023-02-23] MEDS ORDERED: DOXEPIN 10 MG CAPSULE PO SCH (02:25)
--- NOTE | 2023-03-06 10:24 | ED Physician Documentation ---
History of Present Illness - Stated complaint Stated Complaint: BODY SPASM - Chief complaint Chief Complaint: General - History obtained from History obtained from: Patient - History of Present Illness Timing: Today - Additonal information Additional information: Zachery Robles is a 37-year-old male with a history of severe cerebral palsy who has later in life developed dystonia. He generally will have spasm of his lower legs that is continuous and painful requiring treatment with narcotic and an antispasmodic. He has been having more frequent visits recently with symptoms. He has required the use of Dilaudid and Valium.He indicates that he is not otherwise ill currently Review of Systems Constitutional: denies: Fever Ears: denies: Ear pain Nose: denies: Congestion Throat: denies: Sore throat Respiratory: denies: Cough PD PAST MEDICAL HISTORY - Past Medical History Past Medical History: Yes Cardiovascular: None Respiratory: None Neuro: Cerebral palsy, Other Endocrine/Autoimmune: None GI: Other : Incontinence, Frequency, Other HEENT: Chronic hearing loss Psych: Anxiety, ADD/ADHD, Post traumatic stress disorder, Other Musculoskeletal: Paraplegia, Chronic back pain, Other Derm: Psoriasis Other Past Medical History: Dystonia - Past Surgical History Past Surgical History: Yes - Present Medications Home Medications: Ambulatory Orders Medication Instructions Recorded Confirmed diazePAM [Valium] 5 mg PO TID PRN #20 tablet 11/28/22 02/28/23 - Allergies Allergies/Adverse Reactions: Allergies Allergy/AdvReac Type Severity Reaction Status Date / Time diphenhydramine Allergy Unknown Verified 03/04/23 18:36 [From Benadryl] acetaminophen [From Tylenol] AdvReac Dizziness Verified 03/04/23 18:36 aspirin AdvReac Unknown Verified 03/04/23 18:36 [email or web address] [From Chantix] AdvReac Anxiety Verified 03/04/23 18:36 - Social History Does the pt smoke?: Yes Smoking Status: Current every day smoker Does the pt drink ETOH?: No Does the pt have substance abuse?: Yes - Immunizations Immunizations are current?: Yes - POLST Patient has POLST: No PD ED PE NORMAL - Vitals Vital signs reviewed: Yes (Normal) - General General: Alert and oriented X 3, No acute distress, Well developed/nourished - HEENT HEENT: Atraumatic, PERRL, EOMI - Neck Neck: Supple, no meningeal sign, No bony TTP - Respiratory Respiratory: No respiratory distress - Derm Derm: Normal color, Warm and dry, No rash - Extremities Extremities: Other (Lower extremities are atrophied and the left leg is spasming keeping itself lifted up off of his wheelchair rest. The right leg spasms to a lesser extent.) - Neuro Neuro: Alert and oriented X 3, clinical fellow 2-12 intact, Normal speech Eye Opening: Spontaneous Motor: Obeys Commands Verbal: Oriented GCS Score: 15 - Psych Psych: Normal mood, Normal affect Results - Vitals Vitals: Oxygen O2 Source Room air PD Medical Decision Making - ED course Complexity details: considered differential, d/w patient ED course: 37-year-old male with a history of cerebral palsy and dystonia presents tonight again with painful spasms. He has not been getting sleep and this tends to make things worse as well. He is administered a dose of Dilaudid and Valium with improvement in his symptoms he requires a second dose of Dilaudid. Tonight we are giving the patient a dose of doxepin hydrochloride with the hopes that The combined effects of anticholinergic and antihistamine will assist with the patient's sleep and improve his frequency of symptoms. The patient was cared for during the time of computer maintenance and the patient was administered written discharge instructions. He was instructed to follow-up with his primary about the possibility of continued use of doxycycline. Departure - Departure Disposition: 01 Home, Self Care Clinical Impression: History of cerebral palsy, Dystonia Condition: Stable Forms: PCP List Discharge Date/Time: 02/23/23 02:40
== END 2023-02-23 02:40 | disposition home or self-care (01) ==
LOC: ED 00:26
DX: G80.3 Athetoid cerebral palsy (principal); F17.200 Nicotine dependence, unspecified, uncomplicated
CPT/HCPCS: 96372; 99283; J1170

== ENCOUNTER 2023-03-09 12:26 | Emergency (ER) | payer MEDICARE, MEDICAID ==
--- NOTE | 2023-03-09 12:56 | ED Physician Documentation ---
History of Present Illness - Stated complaint Stated Complaint: PASSING OUT - Chief complaint Chief Complaint: General - Additonal information Additional information: 37-year-old gentleman well-known to the emergency department presents to the emergency department for evaluation of near syncope. He has a history of cerebral palsy and dystonia. He also has chronic pain associated with this. He was on oxycodone and Valium for a long time and was ultimately weaned from the oxycodone and was using Valium for control of his spasms. He was transitioned to Suboxone patch infusing 15 mics an hour and he placed the patch 2 days ago. Since then he has been weaning himself down on the Valium however he reports feeling off, dizzy and lightheaded. Reports a near syncopal episode prior to arrival. Denies chest pain, shortness of air nausea or vomiting. He does appear to be in his usual state of health. On presentation he is afebrile. Heart rate 67. Initial blood pressure 130/84. Saturating 99% on room air. Review of Systems Constitutional: denies: Fever Ears: reports: Reviewed and negative Nose: reports: Reviewed and negative Respiratory: denies: Dyspnea, Cough GI: denies: Abdominal Pain, Abdominal Swelling PD PAST MEDICAL HISTORY - Past Medical History Cardiovascular: None Respiratory: None Neuro: Cerebral palsy, Other Endocrine/Autoimmune: None GI: Other : Incontinence, Frequency, Other HEENT: Chronic hearing loss Psych: Anxiety, ADD/ADHD, Post traumatic stress disorder, Other Musculoskeletal: Paraplegia, Chronic back pain, Other Derm: Psoriasis - Past Surgical History Past Surgical History: Yes - Present Medications Home Medications: Ambulatory Orders Medication Instructions Recorded Confirmed Buprenorphine [Butrans] 15 mg TD Q7D 03/09/23 03/09/23 diazePAM [Diazepam] 2.5 mg PO Q6HR 03/09/23 03/09/23 - Allergies Allergies/Adverse Reactions: Allergies Allergy/AdvReac Type Severity Reaction Status Date / Time diphenhydramine Allergy Unknown Verified 03/09/23 12:30 [From Benadryl] acetaminophen [From Tylenol] AdvReac Dizziness Verified 03/09/23 12:30 aspirin AdvReac Unknown Verified 03/09/23 12:30 [email or web address] [From Chantix] AdvReac Anxiety Verified 03/09/23 12:30 - Social History Does the pt smoke?: Yes Smoking Status: Current every day smoker Does the pt drink ETOH?: No Does the pt have substance abuse?: Yes - Immunizations Immunizations are current?: Yes - POLST Patient has POLST: No PD ED PE NORMAL - General General: Alert and oriented X 3, No acute distress. No: Well developed/nourished (Contracted right upper extremity. Stiff immobile limbs.) - HEENT HEENT: Atraumatic - Neck Neck: Supple, no meningeal sign - Cardiac Cardiac: RRR, No murmur - Respiratory Respiratory: No respiratory distress, Clear bilaterally - Abdomen Abdomen: Normal bowel sounds, Soft - Back Back: No CVA TTP - Derm Derm: Normal color, Warm and dry, No rash - Neuro Neuro: Alert and oriented X 3, etl developer 2-12 intact Eye Opening: Spontaneous Motor: Obeys Commands Verbal: Oriented GCS Score: 15 Results - Vitals Vitals: Vital Signs - 24 hr 03/09/23 03/09/23 03/09/23 12:30 12:36 13:05 Temperature 36.8 C Heart Rate 67 61 Heart Rate [ 67 Sitting] Heart Rate [ 58 L Supine] Respiratory 16 12 Rate Blood Pressure 130/84 H 130/89 H Blood Pressure 138/97 H [Sitting] Blood Pressure 131/100 H [Supine] O2 Saturation 99 100 Oxygen O2 Source Room air - EKG (time done) 1254 EKG releavant findings:: EKG personally interpreted by author of this note. Relevant findings are: Rate: Rate (enter#) (57) Rhythm: NSR [place]: Normal Intervals: Normal OR. No: Prolonged QT QRS: LVH, Poor R wave progression Ischemia: Q waves (inferior leads) Computer interpretation: Agree with computer - Labs Labs: Laboratory Tests 03/09/23 03/09/23 12:54 12:54 WBC 7.7 RBC 4.37 L Hgb 13.5 L Hct 40.6 L MCV 92.9 MCH 30.9 MCHC 33.3 RDW 13.2 Plt Count 244 MPV 9.5 Neut # (Auto) 5.2 Lymph # (Auto) 1.5 [place] # (Auto) 0.7 Eos # (Auto) 0.2 Baso # (Auto) 0.0 Absolute Nucleated RBC 0.00 Nucleated RBC % 0.0 Sodium 138 Potassium 3.6 Chloride 102 Carbon Dioxide 30 Anion Gap 6.0 BUN 12 Creatinine 0.8 Estimated GFR (MDRD) 108 Glucose 111 H Calcium 9.5 Total Bilirubin 0.4 AST 20 ALT 20 Alkaline Phosphatase 63 Total Protein 6.8 Albumin 4.4 Globulin 2.4 Albumin/Globulin Ratio 1.8 Lipase 10 L PD Medical Decision Making - ED course Complexity details: reviewed results, re-evaluated patient ED course: 37-year-old gentleman who has a history of cerebral palsy associated dystonia and chronic pain presents emergency department for evaluation of near syncope. He has been transitioning over the last several days onto Suboxone patch 15 mcg an hour transdermally. He is also weaning off of the Valium currently taking 2- 1/2 mg every 4 hours. He is felt dizzy lethargic, lightheaded and had near syncopal episodes. Denying chest pain or shortness of air. Here in the emergency department a twelve-lead EKG is interpreted by myself showed no ischemic findings and was unchanged from most recent 1 completed in 2020. CBC, electrolytes were also obtained which showed no acute abnormalities. Given the patient's Ribble palsy we did modified orthostatics by checking pressures in the supine and sitting position and found no orthostasis. low suspicion for acs. low risk for PE by wells criteria. no e/o anemia. At this time I suspect the etiology of symptoms is simply a transition onto Suboxone with weaning from Valium. Here in the emergency department he is given a liter of IV fluids and is feeling better. He is encouraged to discuss his concerns of feeling lightheaded and fatigued with his prescriber Dr. Redman. Otherwise usual emergent return precautions for worsening symptoms were verbally discussed. Departure - Departure Disposition: 01 Home, Self Care Clinical Impression: Near syncope Condition: Stable Record reviewed to determine appropriate education?: Yes Comments: As discussed at the bedside I suspect your fatigue, dizziness and feeling lightheaded and faint is due to the adjustment as you begin taking the Suboxone and weaning yourself off of the Valium. I would be gentle with yourself over the next several weeks. Make sure that you are staying well-hydrated and getting adequate nutrition. Your labs, vital signs and EKG today in the emergency department have not shown any worrisome findings. I do recommend that you discuss your medication transitions with Dr. Redman to see if she wants to adjust your doses Forms: PCP List
[2023-03-09 12:59] LABS: BASOPHILS % (AUTO) 0.5 %; EOSINOPHILS # (AUTO) 0.2 10^3/uL (0.0-0.7); EOSINOPHILS % (AUTO) 2.9 %; HCT - HEMATOCRIT 40.6 % (42.0-52.0); HGB - HEMOGLOBIN 13.5 g/dL (14.0-18.0); LYMPHOCYTES # (AUTO) 1.5 10^3/uL (1.5-3.5); MEAN CORPUSCULAR HEMOGLOBIN 30.9 pg (27.0-31.0); MEAN CORPUSCULAR HGB CONC 33.3 g/dL (32.0-36.0); MEAN CORPUSCULAR VOLUME 92.9 fL (80.0-94.0); MEAN PLATELET VOLUME 9.5 fL (7.4-11.4); MONOCYTES # (AUTO) 0.7 10^3/uL (0.0-1.0); MONOCYTES % (AUTO) 9.2 %; NEUTROPHILS # (AUTO) 5.2 10^3/uL (1.5-6.6); NEUTROPHILS % (AUTO) 67.3 %; PLT - PLATELET COUNT 244 10^3/uL (130-450); RED BLOOD COUNT 4.37 10^6/uL (4.70-6.10); RED CELL DISTRIBUTION WIDTH 13.2 % (12.0-15.0); WHITE BLOOD COUNT 7.7 x10^3/uL (4.8-10.8)
[2023-03-09] MEDS: SODIUM CHLORIDE 0.9% 1,000 ML IV STA (13:06)
[2023-03-09 13:12] LABS: ALBUMIN 4.4 g/dL (3.2-5.5); ALBUMIN/GLOBULIN RATIO 1.8 (1.0-2.2); BILIRUBIN,TOTAL 0.4 mg/dL (0.2-1.0); CALCIUM 9.5 mg/dL (8.5-10.3); CREATININE 0.8 mg/dL (0.6-1.3); POTASSIUM 3.6 mmol/L (3.5-4.5); TOTAL PROTEIN 6.8 g/dL (6.4-8.9)
[2023-03-09 14:12] VITALS: BP 123/80; O2SAT 99
== END 2023-03-09 14:23 | disposition home or self-care (01) ==
LOC: ED 12:26
DX: R55 Syncope and collapse (principal); G80.3 Athetoid cerebral palsy; F17.200 Nicotine dependence, unspecified, uncomplicated; Z79.899 Other long term (current) drug therapy
CPT/HCPCS: 36415; 80053; 83690; 85025; 93005; 99284

== ENCOUNTER 2023-04-11 20:09 | Emergency (ER) | payer MEDICARE, MEDICAID ==
[2023-04-11 20:21] VITALS: BP 150/90; O2SAT 100
--- NOTE | 2023-04-11 20:36 | ED Physician Documentation ---
History of Present Illness - Stated complaint Stated Complaint: CHRONIC PX - Chief complaint Chief Complaint: General - History obtained from History obtained from: Patient - Additonal information Additional information: HPI from patient Patient offers many different complaints over various timeframes. This patient is very well-known to this emergency department: Joey is his 20th emergency room visit over the past 12 months to 2 different ED's (19 of these visits have been to this ED). The majority of his ED visits are related to complaints of pain and/or muscle spasm for which she often specifically requests narcotics as well as a benzodiazepine. At this time, patient tells me over the past few months he feels he sleeps too much some weeks, sleeps to little other weeks. He says he feels increasing fatigue over the past several weeks, increasing episodes of "blacking out" (per patient). He says he has thoughts of self-harm over the last 1 to 2 days without specific plan. Patient goes on to say that he feels his primary care provider is not providing prescription medications that are "working for my woes" (per patient). When I ask him to specify what symptoms he is having that he feels are not being adequately addressed with his medications, he again lists the same, various complaints as noted above. I asked the patient if he has seen his primary care provider recently, to which he says he has had great difficulty corresponding with the primary care provider due to not having a cell phone for the past 5 months. He says he writes messages on the patient portal but it is not clear to me if he is not getting responses back or he is not getting responses satisfactory to him. He does mention that his primary care provider is to refer him to a neurology specialist but unclear when this will happen and patient again expresses doubts he will be able to go through with this due to transportation and communication issues. I made several attempts to refocus patient regarding what he is hoping I can do for him joey from an emergency medicine standpoint. He says "an hour ago, I was seriously contemplating self-harm". I offered telepsych consult and he accepts this. Review of Systems Constitutional: reports: Fatigue. denies: Fever, Chills, Sweats Cardiac: reports: Reviewed and negative Respiratory: reports: Reviewed and negative GI: reports: Reviewed and negative PD PAST MEDICAL HISTORY - Past Medical History Past Medical History: Yes Cardiovascular: None Respiratory: None Neuro: Cerebral palsy, Other Endocrine/Autoimmune: None GI: Other : Incontinence, Frequency, Other HEENT: Chronic hearing loss Psych: Anxiety, ADD/ADHD, Post traumatic stress disorder, Other Musculoskeletal: Paraplegia, Chronic back pain, Other Derm: Psoriasis - Past Surgical History Past Surgical History: Yes - Present Medications Home Medications: Ambulatory Orders Medication Instructions Recorded Confirmed Buprenorphine [Butrans] 15 mg TD Q7D 03/09/23 03/09/23 diazePAM [Diazepam] 2.5 mg PO Q6HR 03/09/23 03/09/23 - Allergies Allergies/Adverse Reactions: Allergies Allergy/AdvReac Type Severity Reaction Status Date / Time diphenhydramine Allergy Unknown Verified 04/11/23 20:12 [From Benadryl] acetaminophen [From Tylenol] AdvReac Dizziness Verified 04/11/23 20:12 aspirin AdvReac Unknown Verified 04/11/23 20:12 [email or web address] [From Chantix] AdvReac Anxiety Verified 04/11/23 20:12 - Social History Does the pt smoke?: Yes Smoking Status: Current every day smoker Does the pt drink ETOH?: No Does the pt have substance abuse?: Yes - Immunizations Immunizations are current?: Yes - POLST Patient has POLST: No PD ED PE NORMAL - Vitals Vital signs reviewed: Yes - General General: Alert and oriented X 3, No acute distress, Well developed/nourished, Other (AAOx3, poor eye contact. sitting in his motorized wheelchair) - Cardiac Cardiac: RRR, No murmur - Respiratory Respiratory: No respiratory distress, Clear bilaterally - Abdomen Abdomen: Soft, Other (g-tube in place, trace erythema surrounding stoma) Results - Vitals Vitals: Vital Signs - 24 hr 04/11/23 20:12 Temperature 36.5 C Heart Rate 100 Respiratory 18 Rate Blood Pressure 150/90 H O2 Saturation 100 Oxygen O2 Source Room air - Labs Labs: Laboratory Tests 04/11/23 04/11/23 04/11/23 21:05 21:10 21:10 WBC 8.9 RBC 4.37 L Hgb 13.5 L Hct 41.0 L MCV 93.8 MCH 30.9 MCHC 32.9 RDW 12.9 Plt Count 275 MPV 9.8 Neut # (Auto) 5.3 Lymph # (Auto) 2.2 [place] # (Auto) 0.8 Eos # (Auto) 0.5 Baso # (Auto) 0.1 Absolute Nucleated RBC 0.00 Nucleated RBC % 0.0 Sodium 141 Potassium 3.7 Chloride 107 Carbon Dioxide 26 Anion Gap 8.0 BUN 10 Creatinine 0.7 Estimated GFR (MDRD) 126 Glucose 97 Calcium 9.4 Magnesium 1.8 Total Bilirubin 0.3 AST 12 ALT 8 L Alkaline Phosphatase 79 Total Creatine Kinase 143 Total Protein 7.2 Albumin 4.6 Globulin 2.6 Albumin/Globulin Ratio 1.8 Lipase 22 TSH 0.74 Urine Color YELLOW Urine Clarity CLEAR Urine pH 7.0 Ur Specific [place] 1.020 Urine Protein NEGATIVE Urine Glucose (UA) NEGATIVE Urine Ketones NEGATIVE Urine Occult Blood NEGATIVE Urine Nitrite NEGATIVE Urine Bilirubin NEGATIVE Urine Urobilinogen 0.2 (NORMAL) Ur Leukocyte Esterase NEGATIVE Ur Microscopic Review NOT INDICATED Urine Culture Comments NOT INDICATED Salicylates < 1.5 Urine Opiates Screen NEGATIVE Ur Oxycodone Screen NEGATIVE Urine Methadone Screen NEGATIVE Ur Propoxyphene Screen NEGATIVE Acetaminophen < 0.1 Ur Barbiturates Screen NEGATIVE Ur Tricyclics Screen NEGATIVE Ur Phencyclidine Scrn NEGATIVE Ur Amphetamine Screen NEGATIVE U Methamphetamines Scrn NEGATIVE U Benzodiazepines Scrn NEGATIVE Urine Cocaine Screen NEGATIVE U Cannabinoids Screen NEGATIVE Ethyl Alcohol < 10.0 PD Medical Decision Making - ED course Complexity details: reviewed old records, reviewed results, re-evaluated patient, considered differential, d/w patient ED course: Patient has a number of concerns, some of which are not even medical-related (such as lack of access to a cell phone). When commenting he continues to return to is he feels what ever medications have been and are currently being prescribed or not working for his problems; however, despite extensive discus sean, I am still not clear which problems he is referring to in regards to his perception that medications are not helping. As noted in HPI, I asked patient several times what he is hoping can be achieved with this ER visit, and he eventually says his chief concern is that he has been having thoughts of self- harm. I explained that I would be able to get a psychiatrist to speak to him via telepsych consult but this would require blood work and a urinalysis, he is agreeable to this. There were no concerning findings on the blood tests nor on the urinalysis. I was thus able to medically clear the patient for a telepsychiatric consult and the request was entered. Unfortunately, shortly after the request was entered, the patient insisted on leaving. He says he does not have suicidal intent but was just having vague suicidal thoughts. He does not want to speak with a psychiatrist at this time and is insisting on being discharged home. Departure - Departure Disposition: 01 Home, Self Care Clinical Impression: Chronic pain, History of cerebral palsy Condition: Good Instructions: ED Chronic Pain Management Comments: You were offered a consult in the ER with a psychiatrist (telepsychiatry consult), but have opted to not go through with this consult. Follow up with your primary care provider for reevaluation. Forms: PCP List Discharge Date/Time: 04/11/23 22:22
[2023-04-11 21:15] LABS: MUDS CUTOFF CONCENTRATIONS CUTOFF CONC BELOW:
[2023-04-11 21:16] LABS: BASOPHILS # (AUTO) 0.1 10^3/uL (0.0-0.1); BASOPHILS % (AUTO) 0.8 %; EOSINOPHILS # (AUTO) 0.5 10^3/uL (0.0-0.7); EOSINOPHILS % (AUTO) 5.9 %; HGB - HEMOGLOBIN 13.5 g/dL (14.0-18.0); LYMPHOCYTES # (AUTO) 2.2 10^3/uL (1.5-3.5); LYMPHOCYTES % (AUTO) 24.2 %; MEAN CORPUSCULAR HEMOGLOBIN 30.9 pg (27.0-31.0); MEAN CORPUSCULAR HGB CONC 32.9 g/dL (32.0-36.0); MEAN CORPUSCULAR VOLUME 93.8 fL (80.0-94.0); MEAN PLATELET VOLUME 9.8 fL (7.4-11.4); MONOCYTES # (AUTO) 0.8 10^3/uL (0.0-1.0); MONOCYTES % (AUTO) 9.1 %; NEUTROPHILS # (AUTO) 5.3 10^3/uL (1.5-6.6); NEUTROPHILS % (AUTO) 59.8 %; PLT - PLATELET COUNT 275 10^3/uL (130-450); RED BLOOD COUNT 4.37 10^6/uL (4.70-6.10); RED CELL DISTRIBUTION WIDTH 12.9 % (12.0-15.0); WHITE BLOOD COUNT 8.9 x10^3/uL (4.8-10.8)
[2023-04-11 21:18] LABS: BILIRUBIN,URINE NEGATIVE (NEGATIVE); GLUCOSE, URINE (UA) NEGATIVE (NEGATIVE); KETONES,URINE (UA) NEGATIVE (NEGATIVE); LEUKOCYTE ESTERASE, URINE NEGATIVE (NEGATIVE); NITRITE,URINE NEGATIVE (NEGATIVE); OCCULT BLOOD,URINE NEGATIVE (NEGATIVE); PROTEIN,URINE NEGATIVE (NEGATIVE); UROBILINOGEN,URINE 0.2 (NORMAL) E.U./dL (NORMAL)
[2023-04-11 21:19] LABS: CLARITY,URINE CLEAR (CLEAR)
[2023-04-11 21:27] LABS: AMPHETAMINE SCREEN,URINE NEGATIVE (NEGATIVE); BARBITURATE SCREEN,UR NEGATIVE (NEGATIVE); BENZODIAZEPINES SCREEN, URINE NEGATIVE (NEGATIVE); COCAINE SCREEN URINE NEGATIVE (NEGATIVE); METHADONE SCREEN, URINE NEGATIVE (NEGATIVE); METHAMPHETAMINES SCREEN, URINE NEGATIVE (NEGATIVE); OPIATE SCREEN, URINE NEGATIVE (NEGATIVE); OXYCODONE SCREEN, URINE NEGATIVE (NEGATIVE); PROPOXYPHENE SCREEN, URINE NEGATIVE (NEGATIVE); THC CANNABINOID SCREEN, URINE NEGATIVE (NEGATIVE); TRICYCLIC ANTIDEPRESSANT,URINE NEGATIVE (NEGATIVE)
[2023-04-11 21:36] LABS: ALBUMIN 4.6 g/dL (3.2-5.5); ALBUMIN/GLOBULIN RATIO 1.8 (1.0-2.2); ALKALINE PHOSPHATASE 79 IU/L (42-121); ALT ALANINE AMINOTRANSFERASE 8 IU/L (10-60); AST ASPARTATE AMINOTRANSFERASE 12 IU/L (10-42); BILIRUBIN,TOTAL 0.3 mg/dL (0.2-1.0); BUN - BLOOD UREA NITROGEN 10 mg/dL (6-20); CALCIUM 9.4 mg/dL (8.5-10.3); CARBON DIOXIDE - CO2 26 mmol/L (21-32); CHLORIDE 107 mmol/L (101-111); CK- CREATINE KINASE 143 IU/L (30-223); CREATININE 0.7 mg/dL (0.6-1.3); ETOH - ETHANOL < 10.0 mg/dL; GFR - MDRD 126 (>89); GLUCOSE 97 mg/dL (74-104); LIPASE 22 U/L (11-82); MAGNESIUM 1.8 mg/dL (1.7-2.3); POTASSIUM 3.7 mmol/L (3.5-4.5); SODIUM 141 mmol/L (135-145); TOTAL PROTEIN 7.2 g/dL (6.4-8.9)
[2023-04-11 21:39] LABS: ACETAMINOPHEN < 0.1 ug/mL; SALICYLATE < 1.5 mg/dL
[2023-04-11 21:46] LABS: THYROID STIMULATING HORMONE 0.74 uIU/mL (0.34-5.60)
== END 2023-04-11 22:22 | disposition home or self-care (01) ==
LOC: ED 20:09
DX: G89.29 Other chronic pain (principal); G80.9 Cerebral palsy, unspecified; F17.200 Nicotine dependence, unspecified, uncomplicated; Z79.899 Other long term (current) drug therapy
CPT/HCPCS: 36415; 80053; 80306; 80307; 81003; 82550; 83690; 83735; 84443; 85025; 99283; 99284; G0480; 80320; 80329; 81001; 87086

== ENCOUNTER 2023-05-05 21:58 | Emergency (ER) | payer MEDICARE, MEDICAID ==
[2023-05-05] MEDS ORDERED: NALOXONE HCL NASAL SPRAY KIT NAS STA (22:28)
--- NOTE | 2023-05-05 22:28 | ED Physician Documentation ---
History of Present Illness - Stated complaint Stated Complaint: ACCIDENTAL OD - Chief complaint Chief Complaint: General - History obtained from History obtained from: Patient - Additonal information Additional information: . 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 Filled a new prescription from Dr. Ebony Redman yesterday for liquid Valium. he notes that the bottle is mostly empty, but does not recall taking extra doses. Is confident he has not taken any in at least 4 hours. PD PAST MEDICAL HISTORY - Past Medical History Past Medical History: Yes Cardiovascular: None Respiratory: None Neuro: Cerebral palsy, Other Endocrine/Autoimmune: None GI: Other : Incontinence, Frequency, Other HEENT: Chronic hearing loss Psych: Anxiety, ADD/ADHD, Post traumatic stress disorder, Other Musculoskeletal: Paraplegia, Chronic back pain, Other Derm: Psoriasis - Past Surgical History Past Surgical History: Yes - Present Medications Home Medications: Ambulatory Orders Medication Instructions Recorded Confirmed Buprenorphine [Butrans] 15 mg TD Q7D 03/09/23 03/09/23 diazePAM [Diazepam] 2.5 mg PO Q6HR 03/09/23 03/09/23 - Allergies Allergies/Adverse Reactions: Allergies Allergy/AdvReac Type Severity Reaction Status Date / Time diphenhydramine Allergy Unknown Verified 05/05/23 22:18 [From Benadryl] acetaminophen [From Tylenol] AdvReac Dizziness Verified 05/05/23 22:18 aspirin AdvReac Unknown Verified 05/05/23 22:18 [email or web address] [From Chantix] AdvReac Anxiety Verified 05/05/23 22:18 - Social History Does the pt smoke?: Yes Smoking Status: Current every day smoker Does the pt drink ETOH?: Yes Does the pt have substance abuse?: Yes Substance Use and Type: Marijuana - Immunizations Immunizations are current?: Yes - POLST Patient has POLST: No PD ED PE NORMAL - Vitals Vital signs reviewed: Yes - General General: Alert and oriented X 3, No acute distress, Other (Comfortable, alert and oriented and nontoxic sitting up in a chair.) - Neuro Neuro: Alert and oriented X 3, Normal speech Results - Vitals Vitals: Vital Signs - 24 hr 05/05/23 05/05/23 05/05/23 22:13 22:18 22:46 Temperature 36.5 C 36.5 C 36.5 C Heart Rate 96 96 88 Respiratory 18 18 16 Rate Blood Pressure 138/85 H 138/85 H 130/86 H O2 Saturation 98 98 100 Oxygen O2 Source Room air PD Medical Decision Making - ED course ED course: 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 21 Ed visits in the last 12 mosths with a lot of pain mg tissues. And was dismissed from prior pain mgt, reasons unclear. Filled rx valium and overused it. He does not think it was diverted. He appears fine here and is persistent that he has not taken it in >4 hrs. D/W that he will be ok from O/D standpoint, then asks for dilaudid. I d/w him that we would not be venturing into his chronic pain mgt in the ED and sent HIPPA compliant email to Dr Redman as he appears to be overusing his meds. He is safe now, but high risk for O/D and dispensed nasal narcan per [facility] Departure - Departure Disposition: 01 Home, Self Care Clinical Impression: Drug overdose Qualifiers: Encounter type: initial encounter Injury intent: accidental or unintentional Qualified Code(s): T50.901A - Poisoning by unspecified drugs, medicaments and biological substances, accidental (unintentional), initial encounter Condition: Good Record reviewed to determine appropriate education?: Yes Instructions: ED Overdose Accidental Comments: Be sure to only use your medications as prescribed. I am prescribing Narcan should you be witness to an unintentional narcotic overdose. Follow-up with Dr. Redman for further evaluation and treatment. Forms: PCP List Discharge Date/Time: 05/05/23 22:46
[2023-05-05 22:51] VITALS: BP 130/86; O2SAT 100
== END 2023-05-05 22:46 | disposition home or self-care (01) ==
LOC: ED 21:58
DX: T42.4X1A Poisoning by benzodiazepines, accidental (unintentional), initial encounter (principal); G80.9 Cerebral palsy, unspecified; F17.200 Nicotine dependence, unspecified, uncomplicated
CPT/HCPCS: 99282; 99283; G2215

== ENCOUNTER 2023-05-28 18:31 | Outpatient (CLI) | payer MEDICARE, MEDICAID ==
[2023-05-28 19:02] LABS: BASOPHILS # (AUTO) 0.1 10^3/uL (0.0-0.1); EOSINOPHILS # (AUTO) 0.5 10^3/uL (0.0-0.7); EOSINOPHILS % (AUTO) 5.7 %; HCT - HEMATOCRIT 44.4 % (42.0-52.0); HGB - HEMOGLOBIN 14.6 g/dL (14.0-18.0); LYMPHOCYTES # (AUTO) 2.6 10^3/uL (1.5-3.5); LYMPHOCYTES % (AUTO) 30.4 %; MEAN CORPUSCULAR HEMOGLOBIN 30.4 pg (27.0-31.0); MEAN CORPUSCULAR HGB CONC 32.9 g/dL (32.0-36.0); MEAN CORPUSCULAR VOLUME 92.3 fL (80.0-94.0); MEAN PLATELET VOLUME 9.5 fL (7.4-11.4); MONOCYTES # (AUTO) 0.6 10^3/uL (0.0-1.0); MONOCYTES % (AUTO) 7.3 %; NEUTROPHILS # (AUTO) 4.7 10^3/uL (1.5-6.6); NEUTROPHILS % (AUTO) 55.4 %; PLT - PLATELET COUNT 353 10^3/uL (130-450); RED BLOOD COUNT 4.81 10^6/uL (4.70-6.10); RED CELL DISTRIBUTION WIDTH 13.3 % (12.0-15.0); WHITE BLOOD COUNT 8.6 x10^3/uL (4.8-10.8)
[2023-05-28 19:17] LABS: ALBUMIN 4.6 g/dL (3.2-5.5); CRP - C-REACTIVE PROTEIN < 0.5 mg/dL (<0.5)
[2023-05-28 19:33] LABS: THYROID STIMULATING HORMONE 0.75 uIU/mL (0.34-5.60)
[2023-05-28 20:06] LABS: ALBUMIN/GLOBULIN RATIO 1.8 (1.0-2.2); ALKALINE PHOSPHATASE 70 IU/L (42-121); ALT ALANINE AMINOTRANSFERASE 10 IU/L (10-60); AST ASPARTATE AMINOTRANSFERASE 14 IU/L (10-42); BILIRUBIN,TOTAL 0.3 mg/dL (0.2-1.0); BUN - BLOOD UREA NITROGEN 8 mg/dL (6-20); CALCIUM 9.5 mg/dL (8.5-10.3); CARBON DIOXIDE - CO2 28 mmol/L (21-32); CHLORIDE 105 mmol/L (101-111); CREATININE 0.7 mg/dL (0.6-1.3); GFR - MDRD 126 (>89); GLUCOSE 79 mg/dL (74-104); POTASSIUM 3.8 mmol/L (3.5-4.5); SODIUM 140 mmol/L (135-145); TOTAL PROTEIN 7.2 g/dL (6.4-8.9)
[2023-05-28 20:48] LABS: ESTIMATED AVERAGE GLUCOSE 105 mg/dL (70-100); HEMOGLOBIN A1c% 5.3 % (4.27-6.07)
== END 2023-05-28 18:32 | disposition home or self-care (01) ==
LOC: LAB 18:31
PROVIDERS: ATTEND Internal Medicine
DX: F06.34 Mood disorder due to known physiological condition with mixed features (principal); R23.4 Changes in skin texture; Z93.4 Other artificial openings of gastrointestinal tract status; R63.4 Abnormal weight loss
CPT/HCPCS: 36415; 80053; 83036; 84443; 85025; 86140

== ENCOUNTER 2023-05-31 00:50 | Outpatient (CLI) | payer MEDICARE, MEDICAID | END 2023-05-31 00:51 | disposition critical access hospital (66) | LOC: EMS 00:50 | DX: K94.23 Gastrostomy malfunction (principal) | CPT/HCPCS: A0425; A0429 ==

== ENCOUNTER 2023-05-31 05:07 | Outpatient (CLI) | payer MEDICARE, MEDICAID | END 2023-05-31 05:08 | disposition home or self-care (01) | LOC: EMS 05:07 | DX: G80.2 Spastic hemiplegic cerebral palsy (principal); K94.23 Gastrostomy malfunction; R10.9 Unspecified abdominal pain | CPT/HCPCS: A0425; A0428 ==

== ENCOUNTER 2023-05-31 15:14 | Emergency (ER) | payer MEDICARE, MEDICAID ==
[2023-05-31 15:34] VITALS: BP 134/82; O2SAT 100
[2023-05-31] MEDS ORDERED: IBUPROFEN 800 MG TABLET PO STA (16:27)
--- NOTE | 2023-05-31 17:49 | ED Physician Documentation ---
History of Present Illness - Stated complaint Stated Complaint: BP, FEEDING TUBE - Chief complaint Chief Complaint: Abd Pain - Additonal information Additional information: Patient 37-year-old male with past medical significant for cerebral palsy presenting to the emergency department for a problem with his gastric tube. Was seen here overnight and reported having his gastric tube fall out the previous evening. Chart review demonstrates that he uses his gastric tube primarily as a supplement for nutrition and that he is able to tolerate p.o. food, fluids, medications. On his initial evaluation in the emergency department attempt was made to replace his gastric tube however patient declined this intervention requesting "heavy sedation". He returns reporting that he took his prescribed clonazepam and would like us to attempt to replace his gastric tube again. Review of Systems Constitutional: denies: Fever Eyes: denies: Loss of vision Ears: denies: Loss of hearing Nose: denies: Rhinorrhea / runny nose Throat: denies: Dental pain / toothache Cardiac: denies: Chest pain / pressure GI: denies: Abdominal Pain : denies: Dysuria PD PAST MEDICAL HISTORY - Past Medical History Cardiovascular: None Respiratory: None Neuro: Cerebral palsy Endocrine/Autoimmune: None GI: Other : Incontinence, Frequency, Other HEENT: Chronic hearing loss Psych: Anxiety, ADD/ADHD, Post traumatic stress disorder, Other Musculoskeletal: Paraplegia, Chronic back pain, Other Derm: Psoriasis - Past Surgical History Past Surgical History: Yes - Present Medications Home Medications: Ambulatory Orders Medication Instructions Recorded Confirmed Buprenorphine [Butrans] 15 mg TD Q7D 03/09/23 03/09/23 diazePAM [Diazepam] 2.5 mg PO Q6HR 03/09/23 03/09/23 - Allergies Allergies/Adverse Reactions: Allergies Allergy/AdvReac Type Severity Reaction Status Date / Time diphenhydramine Allergy Unknown Verified 05/31/23 01:07 [From Benadryl] acetaminophen [From Tylenol] AdvReac Dizziness Verified 05/31/23 01:07 aspirin AdvReac Unknown Verified 05/31/23 01:07 [email or web address] [From Chantix] AdvReac Anxiety Verified 05/31/23 01:07 - Social History Does the pt smoke?: Yes Smoking Status: Current every day smoker Does the pt drink ETOH?: Yes Does the pt have substance abuse?: Yes - Immunizations Immunizations are current?: Yes - POLST Patient has POLST: No PD ED PE NORMAL - Vitals Vital signs reviewed: Yes - General General: Alert and oriented X 3, No acute distress, Other (Patient wheelchair- bound) - HEENT HEENT: Atraumatic - Neck Neck: Supple, no meningeal sign - Cardiac Cardiac: RRR - Respiratory Respiratory: No respiratory distress - Abdomen Abdomen: Normal bowel sounds, Soft, Non tender, Other (Stoma site in the left upper abdominal quadrant easily identified., Clean, dry, no indications of infection.) - Male Male : Deferred - Rectal Rectal: Deferred - Back Back: No CVA TTP - Derm Derm: Normal color - Extremities Extremities: No deformity - Neuro Neuro: Alert and oriented X 3, 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 Was seen here once previously approximately 12 hours ago. At that time declined attempts at G-tube replacement or catheter placement requesting procedural sedation prior to any attempts to replace his tube and leaving when procedural sedation was appropriately not provided by the physician at that time. Returns stating that he would like us to try again, that he took his home clonazepam and that he believes that this will help him remain calm and relaxed for the passage of his G-tube. Did request procedural sedation again to myself. I explained the procedural sedation is not commonly used in the replacement of G-tube's. He also reported that he has had significant difficulties with replacement with his G-tube in the past. He brought his previous G-tube with him and it appears that he had a 20 [place] pediatric tube in place. Unfortunately our facility is only stocked with 24 and 22 [place] standard size G-tubes. He was given a dose of ibuprofen and with nursing present stoma site was cleaned and attempts were made to pass both the 22 and 24 [place] tubes without success. He was offered and strongly encouraged to allow placement of a catheter in order to ensure that his stoma remains patent however he adamantly declined this. He verbalized understanding of the possibility of his stoma closing However stated that in the past passage of even the smallest [place] catheter caused him significant pain and discomfort. I had multiple conversations with him concerning appropriate steps for follow-up on an outpatient basis for replacement of his G-tube. Will discharge at this time for follow-up. Encourage increase intake in nutrient rich foods/food such as Ensure. Clear return precautions given. Departure - Departure Disposition: 01 Home, Self Care Clinical Impression: Gastrostomy tube dysfunction Comments: Thank you for allowing us to care for you today at [facility]. Today in the emergency department we attempted to replace your gastrostomy tube. Unfortunately we do not have the 20 [place] that is your typical size available. We attempted to 24 and 22 [place] however we were unsuccessful. As we discussed, you were offered the passage of a rubber catheter in order to ensure that the gastrostomy insertion site remains open. You have declined this intervention. That does increase your risk for having the site heal or close which would require you to undergo surgical placement. I do recommend following up with your primary care doctor soon as possible concerning your ER visit. Please increase your intake in nutrient rich fluids such as Ensure by mouth until you are G-tube can be replaced. If it anytime you have new or worsening symptoms please not hesitate to return. Forms: PCP List Discharge Date/Time: 05/31/23 18:30
== END 2023-05-31 18:30 | disposition home or self-care (01) ==
LOC: ED 15:14
DX: K94.23 Gastrostomy malfunction (principal); G80.9 Cerebral palsy, unspecified; F17.200 Nicotine dependence, unspecified, uncomplicated
CPT/HCPCS: 43762; 99283; A9270

== ENCOUNTER 2023-07-12 18:52 | Emergency (ER) | payer MEDICARE, MEDICAID ==
[2023-07-12 19:03] VITALS: BP 125/77; O2SAT 100
--- NOTE | 2023-07-12 19:35 | ED Physician Documentation ---
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 His spasticity has been getting worse over the last month or so. Of note he had had increasing emergency department visits late last year and there was some concern for drug-seeking behavior and had missed use his medications. Since then his emergency department visits have decreased and currently is being managed by Dr. Ebony Redman who is prescribing buprenorphine and clonazepam. He was referred to the [facility] neurosciences unit but missed 2 appointments due to transportation difficulties. PD PAST MEDICAL HISTORY - Past Medical History Past Medical History: Yes Cardiovascular: None Respiratory: None Neuro: Cerebral palsy Endocrine/Autoimmune: None GI: Other : Incontinence, Frequency, Other HEENT: Chronic hearing loss Psych: Anxiety, ADD/ADHD, Post traumatic stress disorder, Other Musculoskeletal: Paraplegia, Chronic back pain, Other Derm: Psoriasis - Past Surgical History Past Surgical History: Yes - Present Medications Home Medications: Ambulatory Orders Medication Instructions Recorded Confirmed Buprenorphine [Butrans] 15 mg TD Q7D 03/09/23 03/09/23 diazePAM [Diazepam] 2.5 mg PO Q6HR 03/09/23 03/09/23 - Allergies Allergies/Adverse Reactions: Allergies Allergy/AdvReac Type Severity Reaction Status Date / Time diphenhydramine Allergy Unknown Verified 07/12/23 19:00 [From Benadryl] acetaminophen [From Tylenol] AdvReac Dizziness Verified 07/12/23 19:00 aspirin AdvReac Unknown Verified 07/12/23 19:00 [email or web address] [From Chantix] AdvReac Anxiety Verified 07/12/23 19:00 - Social History Does the pt smoke?: Yes Smoking Status: Current every day smoker Does the pt drink ETOH?: Yes Does the pt have substance abuse?: Yes - Immunizations Immunizations are current?: Yes - POLST Patient has POLST: No PD ED PE NORMAL - Vitals Vital signs reviewed: Yes - General General: Alert and oriented X 3, Other (He is sitting in a position on his wheelchair where he is completely supine. That said he is in no distress.) - Extremities Extremities: Other (Lower extremity reflexes are normal to slightly hyperactive with soft muscles and painless passive range of motion of the lower extremities.) - Neuro Neuro: Alert and oriented X 3, Normal speech Results - Vitals Vitals: Vital Signs - 24 hr 07/12/23 18:56 Temperature 36.4 C L Heart Rate 78 Respiratory 20 Rate Blood Pressure 125/77 O2 Saturation 100 Oxygen O2 Source Room air PD Medical Decision Making - ED course ED course: 37-year-old gentleman with spastic CP presents with increased symptoms due to same. We discussed treatment options. In the past has been on Flexeril, baclofen, and tizanidine. Each of these were subsequently offered and he stated none of them offered relief but was accepting of a Valium injection. Departure - Departure Disposition: 01 Home, Self Care Clinical Impression: Spasticity Condition: Good Record reviewed to determine appropriate education?: Yes Instructions: ED Spasm Muscle Comments: You were seen tonight for worsening spasticity related to your cerebral palsy. Your at home medications are not working well enough and we discussed options for treatment including Flexeril, baclofen, and tizanidine which she tell me none of these work. In lieu of this she received a injection of Valium. Follow-up with Dr. Redman for further evaluation and treatment.
[2023-07-12] MEDS: diazePAM INJ 5 MG/ML SYRINGE IM STA (19:46)
== END 2023-07-12 19:56 | disposition home or self-care (01) ==
LOC: ED 18:52
DX: R25.2 Cramp and spasm (principal); A52.17 General paresis; G80.9 Cerebral palsy, unspecified; F17.200 Nicotine dependence, unspecified, uncomplicated
CPT/HCPCS: 96372; 99283; 99284

== ENCOUNTER 2023-07-30 16:37 | Outpatient (CLI) | payer MEDICARE, MEDICAID ==
[2023-07-30 16:53] LABS: BASOPHILS # (AUTO) 0.1 10^3/uL (0.0-0.1); BASOPHILS % (AUTO) 0.7 %; EOSINOPHILS # (AUTO) 0.4 10^3/uL (0.0-0.7); HCT - HEMATOCRIT 44.6 % (42.0-52.0); HGB - HEMOGLOBIN 14.6 g/dL (14.0-18.0); LYMPHOCYTES # (AUTO) 2.2 10^3/uL (1.5-3.5); MEAN CORPUSCULAR HEMOGLOBIN 30.4 pg (27.0-31.0); MEAN CORPUSCULAR HGB CONC 32.7 g/dL (32.0-36.0); MEAN CORPUSCULAR VOLUME 92.7 fL (80.0-94.0); MEAN PLATELET VOLUME 9.6 fL (7.4-11.4); MONOCYTES # (AUTO) 0.5 10^3/uL (0.0-1.0); MONOCYTES % (AUTO) 6.9 %; NEUTROPHILS # (AUTO) 4.4 10^3/uL (1.5-6.6); NEUTROPHILS % (AUTO) 58.1 %; PLT - PLATELET COUNT 288 10^3/uL (130-450); RED BLOOD COUNT 4.81 10^6/uL (4.70-6.10); RED CELL DISTRIBUTION WIDTH 13.6 % (12.0-15.0); WHITE BLOOD COUNT 7.6 x10^3/uL (4.8-10.8)
[2023-07-30 17:32] LABS: ALBUMIN 4.6 g/dL (3.2-5.5); ALBUMIN/GLOBULIN RATIO 1.7 (1.0-2.2); ALKALINE PHOSPHATASE 65 IU/L (42-121); ALT ALANINE AMINOTRANSFERASE 11 IU/L (10-60); AST ASPARTATE AMINOTRANSFERASE 11 IU/L (10-42); BILIRUBIN,TOTAL 0.3 mg/dL (0.2-1.0); BUN - BLOOD UREA NITROGEN 10 mg/dL (6-20); CALCIUM 9.6 mg/dL (8.5-10.3); CARBON DIOXIDE - CO2 27 mmol/L (21-32); CHLORIDE 103 mmol/L (101-111); CREATININE 0.8 mg/dL (0.6-1.3); CRP - C-REACTIVE PROTEIN < 0.5 mg/dL (<0.5); GFR - MDRD 108 (>89); GLUCOSE 90 mg/dL (74-104); POTASSIUM 3.8 mmol/L (3.5-4.5); SODIUM 138 mmol/L (135-145); TOTAL PROTEIN 7.3 g/dL (6.4-8.9)
== END 2023-07-30 16:38 | disposition home or self-care (01) ==
LOC: LAB 16:37
PROVIDERS: ATTEND Registered Nurse
DX: L03.90 Cellulitis, unspecified (principal); G80.3 Athetoid cerebral palsy; G24.9 Dystonia, unspecified
CPT/HCPCS: 36415; 80053; 83615; 85025; 86140; 87040

== ENCOUNTER 2023-09-21 11:47 | Emergency (ER) | payer MEDICARE, MEDICAID ==
--- NOTE | 2023-09-21 13:16 | ED Physician Documentation ---
History of Present Illness - Stated complaint Stated Complaint: UPPER BODY PX,LEG SPASM - Chief complaint Chief Complaint: Back Pain - History obtained from History obtained from: Patient - Additonal information Additional information: Patient is a 38-year-old male with a history of Spastic paraplegia presenting for evaluation of increased spasticity which she states has been ongoing for at least the last 1 to 2 months. Patient states that he is no longer on Valium as there were concerns from his PCP for drug seeking behavior or having his medication stolen. He states he is waiting for a neurology appointment at the end of October. He has been using cannabis to help manage his symptoms.He states that his symptoms today feel similar to prior. Review of Systems Constitutional: denies: Fever Cardiac: denies: Chest pain / pressure Respiratory: denies: Dyspnea GI: denies: Abdominal Pain PD PAST MEDICAL HISTORY - Past Medical History Past Medical History: Yes Cardiovascular: None Respiratory: None Neuro: Cerebral palsy Endocrine/Autoimmune: None GI: Other : Incontinence, Frequency, Other HEENT: Chronic hearing loss Psych: Anxiety, ADD/ADHD, Post traumatic stress disorder, Other Musculoskeletal: Paraplegia, Chronic back pain, Other Derm: Psoriasis - Past Surgical History Past Surgical History: Yes - Present Medications Home Medications: Ambulatory Orders Medication Instructions Recorded Confirmed No Known Home Medications 09/21/23 09/21/23 - Allergies Allergies/Adverse Reactions: Allergies Allergy/AdvReac Type Severity Reaction Status Date / Time diphenhydramine Allergy Unknown Verified 09/21/23 12:01 [From Benadryl] acetaminophen [From Tylenol] AdvReac Dizziness Verified 09/21/23 12:01 aspirin AdvReac Unknown Verified 09/21/23 12:01 [email or web address] [From Chantix] AdvReac Anxiety Verified 09/21/23 12:01 - Social History Does the pt smoke?: No Smoking Status: Never smoker Does the pt drink ETOH?: Yes Does the pt have substance abuse?: Yes Substance Use and Type: Marijuana - Immunizations Immunizations are current?: Yes - POLST Patient has POLST: No PD ED PE NORMAL - General General: Alert and oriented X 3, No acute distress, Well developed/nourished, Other (Sitting in motorized wheelchair, Peers comfortable) - HEENT HEENT: Atraumatic - Cardiac Cardiac: Strong equal pulses - Respiratory Respiratory: No respiratory distress, Clear bilaterally - Abdomen Abdomen: Normal bowel sounds, Soft, Non tender, Non distended - Extremities Extremities: Other (Allows for passive range of motion of bilateral lower ext remities, muscles are soft, Normal and intact lower extremity reflexes bilaterally) - Neuro Neuro: Alert and oriented X 3, Normal speech Results - Vitals Vitals: Vital Signs - 24 hr 09/21/23 09/21/23 12:02 13:25 Temperature 36.6 C Heart Rate 69 82 Respiratory 18 18 Rate Blood Pressure 151/79 H 138/82 H O2 Saturation 100 98 Oxygen O2 Source Room air PD Medical Decision Making - ED course ED course: Patient with Spastic paraplegia presenting with increased assisting in recent months. He states that the only thing that has been recently helping him is receiving an IM dose of Valium. Was given a dose here but understands that he will not get a prescription for this as there have been concerns for drug- seeking behavior or misuse in the outpatient setting. Patient is awaiting a neurology appointment. Understands importance of outpatient follow-up for management of his chronic symptoms. Departure - Departure Disposition: 01 Home, Self Care Clinical Impression: Spasticity Condition: Stable Instructions: ED Spasm Muscle Comments: You need close follow-up with your primary care doctor as well as your neurologist for long-term management of your spasticity. We did give you a one- time dose of Valium. Discharge Date/Time: 09/21/23 13:25
[2023-09-21] MEDS: diazePAM INJ 5 MG/ML SYRINGE IM STA (13:20)
[2023-09-21 13:29] VITALS: BP 138/82; O2SAT 98
== END 2023-09-21 13:25 | disposition home or self-care (01) ==
LOC: ED 11:47
DX: R25.2 Cramp and spasm (principal); G80.1 Spastic diplegic cerebral palsy
CPT/HCPCS: 96372; 99283; 99284

== ENCOUNTER 2023-11-30 23:42 | Emergency (ER) | payer MEDICARE, MEDICAID ==
[2023-12-01 00:07] VITALS: BP 136/72; O2SAT 100
[2023-12-01 01:40] LABS: BASOPHILS # (AUTO) 0.1 10^3/uL (0.0-0.1); BASOPHILS % (AUTO) 0.7 %; EOSINOPHILS # (AUTO) 0.8 10^3/uL (0.0-0.7); EOSINOPHILS % (AUTO) 7.2 %; HCT - HEMATOCRIT 43.2 % (42.0-52.0); HGB - HEMOGLOBIN 14.5 g/dL (14.0-18.0); LYMPHOCYTES # (AUTO) 3.1 10^3/uL (1.5-3.5); LYMPHOCYTES % (AUTO) 28.9 %; MEAN CORPUSCULAR HEMOGLOBIN 31.2 pg (27.0-31.0); MEAN CORPUSCULAR HGB CONC 33.6 g/dL (32.0-36.0); MEAN CORPUSCULAR VOLUME 92.9 fL (80.0-94.0); MEAN PLATELET VOLUME 9.5 fL (7.4-11.4); MONOCYTES # (AUTO) 0.9 10^3/uL (0.0-1.0); MONOCYTES % (AUTO) 8.7 %; NEUTROPHILS # (AUTO) 5.9 10^3/uL (1.5-6.6); NEUTROPHILS % (AUTO) 54.3 %; PLT - PLATELET COUNT 260 10^3/uL (130-450); RED BLOOD COUNT 4.65 10^6/uL (4.70-6.10); WHITE BLOOD COUNT 10.9 x10^3/uL (4.8-10.8)
[2023-12-01 01:54] LABS: ALBUMIN 4.3 g/dL (3.2-5.5); ALBUMIN/GLOBULIN RATIO 1.8 (1.0-2.2); BILIRUBIN,TOTAL 0.3 mg/dL (0.2-1.0); CALCIUM 9.6 mg/dL (8.5-10.3); CREATININE 0.7 mg/dL (0.6-1.3); POTASSIUM 4.1 mmol/L (3.5-4.5); TOTAL PROTEIN 6.7 g/dL (6.4-8.9)
[2023-12-01 02:14] LABS: LITHIUM 0.41 mmol/L
--- NOTE | 2023-12-01 02:26 | ED Physician Documentation ---
History of Present Illness - Stated complaint Stated Complaint: MED COMPLICATIONS - Chief complaint Chief Complaint: General - History obtained from History obtained from: Patient - Additonal information Additional information: Patient is a 38-year-old male with a history of spastic paraplegia presenting for concerns of lithium toxicity. Patient states that he was recently started on lithium 3 weeks ago by [facility]. He states that for the last 4 days he has been having symptoms intermittently With blurred vision, dizziness, fatigue and spoke to his PCP who recommended he come to the ER for evaluation to check his lithium levels. No fever, cough, congestion, chest pain or abdominal pain. Review of Systems Constitutional: denies: Fever Cardiac: denies: Chest pain / pressure Respiratory: denies: Dyspnea GI: denies: Abdominal Pain PD PAST MEDICAL HISTORY - Past Medical History Past Medical History: Yes Cardiovascular: None Respiratory: None Neuro: Cerebral palsy Endocrine/Autoimmune: None GI: Other : Incontinence, Frequency, Other HEENT: Chronic hearing loss Psych: Anxiety, ADD/ADHD, Post traumatic stress disorder, Other Musculoskeletal: Paraplegia, Chronic back pain, Other Derm: Psoriasis - Past Surgical History Past Surgical History: Yes - Present Medications Home Medications: Ambulatory Orders Medication Instructions Recorded Confirmed No Known Home Medications 09/21/23 09/21/23 - Allergies Allergies/Adverse Reactions: Allergies Allergy/AdvReac Type Severity Reaction Status Date / Time diphenhydramine Allergy Unknown Verified 11/30/23 23:55 [From Benadryl] acetaminophen [From Tylenol] AdvReac Dizziness Verified 11/30/23 23:55 aspirin AdvReac Unknown Verified 11/30/23 23:55 [email or web address] [From Chantix] AdvReac Anxiety Verified 11/30/23 23:55 - Social History Does the pt smoke?: No Smoking Status: Never smoker Does the pt drink ETOH?: Yes Does the pt have substance abuse?: Yes - Immunizations Immunizations are current?: Yes - POLST Patient has POLST: No PD ED PE NORMAL - General General: Alert and oriented X 3, No acute distress, Well developed/nourished - HEENT HEENT: Atraumatic, PERRL, EOMI - Neck Neck: Supple, no meningeal sign - Cardiac Cardiac: RRR - Respiratory Respiratory: No respiratory distress, Clear bilaterally - Derm Derm: Warm and dry - Neuro Neuro: Alert and oriented X 3, Normal speech Results - Vitals Vitals: Vital Signs - 24 hr 11/30/23 23:55 Temperature 36.8 C Heart Rate 94 Respiratory 16 Rate Blood Pressure 136/72 H O2 Saturation 100 Oxygen O2 Source Room air - Labs Labs: Laboratory Tests 12/01/23 12/01/23 12/01/23 01:34 01:34 01:34 WBC 10.9 H RBC 4.65 L Hgb 14.5 Hct 43.2 MCV 92.9 MCH 31.2 H MCHC 33.6 RDW 13.0 Plt Count 260 MPV 9.5 Neut # (Auto) 5.9 Lymph # (Auto) 3.1 Prentiss # (Auto) 0.9 Eos # (Auto) 0.8 H Baso # (Auto) 0.1 Absolute Nucleated RBC 0.00 Nucleated RBC % 0.0 Sodium 139 Potassium 4.1 Chloride 106 Carbon Dioxide 26 Anion Gap 7.0 BUN 16 Creatinine 0.7 Estimated GFR (MDRD) 125 Glucose 112 H Calcium 9.6 Total Bilirubin 0.3 AST 14 ALT 15 Alkaline Phosphatase 86 Total Protein 6.7 Albumin 4.3 Globulin 2.4 Albumin/Globulin Ratio 1.8 Last Dose Date Not Reportable Last Dose Time Not Reportable [place] 0.41 PD Medical Decision Making - ED course Complexity details: reviewed results, re-evaluated patient ED course: Patient is a 38-year-old presenting for check of his lithium levels as he is concerned that some symptoms he has been having recently could be related to lithium toxicity. He was started medication 3 weeks ago. CBC, chemistry and lithium levels were obtained and reviewed and without significant findings. Patient appears to be at his baseline here. Encouraged to have close follow-up with his PCP. Departure - Departure Disposition: 01 Home, Self Care Clinical Impression: [place] use, Dizziness Condition: Stable Instructions: ED Dizziness UKO Comments: Your testing today shows normal electrolytes and your lithium level is 0.41 which is not in the toxicity range. Continue taking your lithium and I would recommend reaching out to your primary care provider to discuss your symptoms further. Return to the ER with any worsening. Forms: PCP List Discharge Date/Time: 12/01/23 02:29
== END 2023-12-01 02:29 | disposition home or self-care (01) ==
LOC: ED 23:42
DX: Z51.81 Encounter for therapeutic drug level monitoring (principal); H53.8 Other visual disturbances; R42 Dizziness and giddiness; R53.83 Other fatigue
CPT/HCPCS: 36415; 80053; 80178; 85025; 99283

== ENCOUNTER 2024-01-13 11:02 | Outpatient (CLI) | payer MEDICARE, MEDICAID ==
[2024-01-13 11:25] LABS: BILIRUBIN,URINE NEGATIVE (NEGATIVE); GLUCOSE, URINE (UA) 100 mg/dL (NEGATIVE); KETONES,URINE (UA) NEGATIVE (NEGATIVE); LEUKOCYTE ESTERASE, URINE NEGATIVE (NEGATIVE); NITRITE,URINE NEGATIVE (NEGATIVE); OCCULT BLOOD,URINE NEGATIVE (NEGATIVE); PROTEIN,URINE NEGATIVE (NEGATIVE); UROBILINOGEN,URINE 0.2 (NORMAL) E.U./dL (NORMAL)
[2024-01-13 11:28] LABS: CLARITY,URINE CLEAR (CLEAR)
[2024-01-13 11:29] LABS: BASOPHILS # (AUTO) 0.1 10^3/uL (0.0-0.1); BASOPHILS % (AUTO) 0.5 %; EOSINOPHILS # (AUTO) 0.4 10^3/uL (0.0-0.7); EOSINOPHILS % (AUTO) 3.4 %; HCT - HEMATOCRIT 44.5 % (42.0-52.0); HGB - HEMOGLOBIN 14.3 g/dL (14.0-18.0); LYMPHOCYTES # (AUTO) 1.9 10^3/uL (1.5-3.5); LYMPHOCYTES % (AUTO) 17.5 %; MEAN CORPUSCULAR HEMOGLOBIN 30.8 pg (27.0-31.0); MEAN CORPUSCULAR HGB CONC 32.1 g/dL (32.0-36.0); MEAN CORPUSCULAR VOLUME 95.7 fL (80.0-94.0); MEAN PLATELET VOLUME 9.7 fL (7.4-11.4); MONOCYTES # (AUTO) 0.6 10^3/uL (0.0-1.0); NEUTROPHILS # (AUTO) 7.8 10^3/uL (1.5-6.6); NEUTROPHILS % (AUTO) 72.3 %; PLT - PLATELET COUNT 299 10^3/uL (130-450); RED BLOOD COUNT 4.65 10^6/uL (4.70-6.10); RED CELL DISTRIBUTION WIDTH 13.4 % (12.0-15.0); WHITE BLOOD COUNT 10.8 x10^3/uL (4.8-10.8)
[2024-01-13 11:37] LABS: BACTERIA,URINE None Seen /HPF (None Seen); RBC,URINE None Seen /HPF (0-5); SQUAMOUS EPITHELIAL CELL,UR NONE SEEN (<= Few); WBC,URINE 0-3 /HPF (0-3)
[2024-01-13 11:46] LABS: ALBUMIN 4.7 g/dL (3.2-5.5); BILIRUBIN,TOTAL 0.2 mg/dL (0.2-1.0); CREATININE 0.8 mg/dL (0.6-1.3); POTASSIUM 4.1 mmol/L (3.5-4.5)
[2024-01-13 11:57] LABS: LITHIUM 0.43 mmol/L
[2024-01-13 11:58] LABS: THYROID STIMULATING HORMONE 1.83 uIU/mL (0.34-5.60)
== END 2024-01-13 11:03 | disposition home or self-care (01) ==
LOC: LAB 11:02
PROVIDERS: ATTEND Nurse Practitioner Psychiatric/Mental Health
DX: Z51.81 Encounter for therapeutic drug level monitoring (principal); Z79.899 Other long term (current) drug therapy
CPT/HCPCS: 36415; 80053; 80178; 81001; 84443; 85025; 87086

== ENCOUNTER 2024-02-01 09:07 | Outpatient (CLI) | payer MEDICARE, MEDICAID ==
[2024-02-01 10:18] LABS: LITHIUM 1.07 mmol/L
== END 2024-02-01 09:08 | disposition home or self-care (01) ==
LOC: LAB 09:07
PROVIDERS: ATTEND Nurse Practitioner Psychiatric/Mental Health
DX: Z79.899 Other long term (current) drug therapy (principal)
CPT/HCPCS: 36415; 80178

== ENCOUNTER 2024-02-06 22:08 | Emergency (ER) | payer MEDICARE, MEDICAID ==
[2024-02-06 22:26] VITALS: BP 151/83; O2SAT 100
--- NOTE | 2024-02-06 23:08 | ED Physician Documentation ---
History of Present Illness - Stated complaint Stated Complaint: - Chief complaint Chief Complaint: General - History obtained from History obtained from: Patient - Additonal information Additional information: 38-year-old man with history of cerebral palsy and dystonic bladder presents with worsening urinary incontinence over the past couple of months. He is requesting a Aranda catheter placed, stating that he and his urologist have talked about this many times and he has decided to go forward with it. Denies other complaints. PD PAST MEDICAL HISTORY - Past Medical History Cardiovascular: None Respiratory: None Neuro: Cerebral palsy Endocrine/Autoimmune: None GI: Other : Incontinence, Frequency, Other HEENT: Chronic hearing loss Psych: Anxiety, ADD/ADHD, Post traumatic stress disorder, Other Musculoskeletal: Paraplegia, Chronic back pain, Other Derm: Psoriasis - Past Surgical History Past Surgical History: Yes - Present Medications Home Medications: Ambulatory Orders Medication Instructions Recorded Confirmed No Known Home Medications 09/21/23 09/21/23 - Allergies Allergies/Adverse Reactions: Allergies Allergy/AdvReac Type Severity Reaction Status Date / Time diphenhydramine Allergy Unknown Verified 02/06/24 22:15 [From Benadryl] acetaminophen [From Tylenol] AdvReac Dizziness Verified 02/06/24 22:15 aspirin AdvReac Unknown Verified 02/06/24 22:15 [email or web address] [From Chantix] AdvReac Anxiety Verified 02/06/24 22:15 - Social History Does the pt smoke?: No Smoking Status: Never smoker Does the pt drink ETOH?: Yes Does the pt have substance abuse?: Yes - Immunizations Immunizations are current?: Yes - POLST Patient has POLST: No PD ED PE NORMAL - Vitals Vital signs reviewed: Yes - General General: Alert and oriented X 3, No acute distress, Well developed/nourished - HEENT HEENT: Atraumatic, PERRL, EOMI - Neck Neck: Supple, no meningeal sign - Cardiac Cardiac: RRR - Respiratory Respiratory: No respiratory distress, Clear bilaterally - Abdomen Abdomen: Non tender, Non distended Results - Vitals Vitals: Vital Signs - 24 hr 02/06/24 02/06/24 22:16 22:32 Temperature 36.3 C L Heart Rate 91 91 Respiratory 14 Rate Blood Pressure 151/83 H O2 Saturation 100 Oxygen O2 Source Room air PD Medical Decision Making - ED course ED course: 38-year-old man presents with urinary incontinence, requesting Aranda catheter placement. This was completed without issue and plan is for patient to follow- up outpatient with his urologist. Return precautions given. Departure - Departure Disposition: 01 Home, Self Care Clinical Impression: Urinary incontinence Condition: Stable Instructions: Leg Bag Care Dc Comments: You were seen in the emergency department for incontinence and a aranda catheter was placed. Please follow-up with your urologist and return to the emergency department if you have any new or worsening symptoms or other concerns. Forms: PCP List
== END 2024-02-06 23:14 | disposition home or self-care (01) ==
LOC: ED 22:08
DX: R32 Unspecified urinary incontinence (principal); G80.9 Cerebral palsy, unspecified
CPT/HCPCS: 51702; 99283

== ENCOUNTER 2024-02-07 09:19 | Emergency (ER) | payer MEDICARE, MEDICAID ==
[2024-02-07 09:54] VITALS: O2SAT 100
--- NOTE | 2024-02-07 10:51 | ED Physician Documentation ---
History of Present Illness - Stated complaint Stated Complaint: - Chief complaint Chief Complaint: Abd Pain - Additonal information Additional information: 38-year-old male with cerebral palsy and dystonic bladder presented to the emergency department last night for urinary urgency and frequency he had a Aranda catheter placed to help with the urinary frequency. Since Aranda catheter has been placed he has noticed for the last 4 hours prior to arrival to the emergency department he has been having decreased urinary output in the Aranda catheter. His attendings appears to be wet so there is concern that he that his Aranda catheter is not draining or there is some oozing around the penis. Denies abdominal pain, but does endorse in burning sensation to tip of penis. Has never had a aranda before. had an appt with urology with [facility] to discuss possible uroflow but didnt feel like he could wait any longer for a aranda. PD PAST MEDICAL HISTORY - Past Medical History Cardiovascular: None Respiratory: None Neuro: Cerebral palsy Endocrine/Autoimmune: None GI: Other : Incontinence, Frequency, Other HEENT: Chronic hearing loss Psych: Anxiety, ADD/ADHD, Post traumatic stress disorder, Other Musculoskeletal: Paraplegia, Chronic back pain, Other Derm: Psoriasis - Past Surgical History Past Surgical History: Yes - Present Medications Home Medications: Ambulatory Orders Medication Instructions Recorded Confirmed No Known Home Medications 09/21/23 09/21/23 - Allergies Allergies/Adverse Reactions: Allergies Allergy/AdvReac Type Severity Reaction Status Date / Time diphenhydramine Allergy Unknown Verified 02/06/24 22:15 [From Benadryl] acetaminophen [From Tylenol] AdvReac Dizziness Verified 02/06/24 22:15 aspirin AdvReac Unknown Verified 02/06/24 22:15 [email or web address] [From Chantix] AdvReac Anxiety Verified 02/06/24 22:15 - Social History Does the pt smoke?: No Smoking Status: Never smoker Does the pt drink ETOH?: Yes Does the pt have substance abuse?: Yes - Immunizations Immunizations are current?: Yes - POLST Patient has POLST: No PD ED PE NORMAL - Vitals Vital signs reviewed: Yes - General General: Alert and oriented X 3, No acute distress, Well developed/nourished - Cardiac Cardiac: RRR - Abdomen Abdomen: Normal bowel sounds, Soft, Non tender, Non distended, No organomegaly - Back Back: No CVA TTP - Derm Derm: Normal color, Warm and dry, No rash - Psych Psych: Normal mood, Normal affect Results - Vitals Vitals: Vital Signs - 24 hr 02/07/24 02/07/24 09:50 11:49 Temperature 36.8 C Heart Rate 70 81 Respiratory 17 18 Rate Blood Pressure 124/75 133/89 H O2 Saturation 100 100 Oxygen O2 Source Room air PD Medical Decision Making - ED course ED course: 38-year-old male presents emergency department for concerns of his Aranda catheter is not draining properly bedside ultrasound was complete for further evaluation of how much she was retaining and it was found to be 0 mL. Patient was able to see that his Aranda catheter was draining properlly. We offered to stop with the Aranda catheter but patient kindly declined and said he would follow-up with his urologist outpatient. He was given ER return precautions patient safe for discharge at this time. Departure - Departure Disposition: 01 Home, Self Care Clinical Impression: Retention of urine due to occlusion of Aranda catheter Instructions: Catheter Indwelling Urinary Dc, ED Catheter Care Aranda Comments: You are able to visualize flow of urinary output from your Aranda catheter and decided to forego urinary Aranda swap. Please come back in if you are having any abdominal pain nausea or vomiting fevers or chills and follow-up with your urologist outpatient let them know about today's ER visit and that you have an indwelling Aranda catheter now. Forms: PCP List Discharge Date/Time: 02/07/24 11:49
[2024-02-07 11:51] VITALS: BP 133/89
== END 2024-02-07 11:49 | disposition home or self-care (01) ==
LOC: ED 09:19
DX: T83.091A Other mechanical complication of indwelling urethral catheter, initial encounter (principal); R33.9 Retention of urine, unspecified
CPT/HCPCS: 51798; 99282; 99283

== ENCOUNTER 2024-02-16 14:23 | Emergency (ER) | payer MEDICARE, MEDICAID ==
[2024-02-16 14:51] VITALS: BP 123/71; O2SAT 100
--- NOTE | 2024-02-16 17:12 | ED Physician Documentation ---
History of Present Illness - Stated complaint Stated Complaint: HEMATURIA - Chief complaint Chief Complaint: General - Additonal information Additional information: 38-year-old male presents emergency department for concerns of hematuria. Alfred moya recently was here and had a Cruz catheter placed for urinary urgency and frequency Due to complications from his MS. Since he has been home he has been having a hard time getting in with a urologist and started noticing some blood clots in his urine in the last couple days. No fevers or chills no CVA tenderness some suprapubic tenderness. PD PAST MEDICAL HISTORY - Past Medical History Cardiovascular: None Respiratory: None Neuro: Cerebral palsy Endocrine/Autoimmune: None GI: Other : Incontinence, Frequency, Other HEENT: Chronic hearing loss Psych: Anxiety, ADD/ADHD, Post traumatic stress disorder, Other Musculoskeletal: Paraplegia, Chronic back pain, Other Derm: Psoriasis - Past Surgical History Past Surgical History: Yes - Present Medications Home Medications: Ambulatory Orders Medication Instructions Recorded Confirmed Cefuroxime Axetil [Cefuroxime] 500 mg PO BID 7 Days #14 tablet 02/16/24 [place] Carbonate 300 mg PO DAILY 02/16/24 02/16/24 [place] Carbonate 900 mg PO HS 02/16/24 02/16/24 Tamsulosin [Flomax] 0.4 mg PO DAILY #30 tab 02/16/24 - Allergies Allergies/Adverse Reactions: Allergies Allergy/AdvReac Type Severity Reaction Status Date / Time diphenhydramine Allergy Unknown Verified 02/16/24 14:44 [From Benadryl] acetaminophen [From Tylenol] AdvReac Dizziness Verified 02/16/24 14:44 aspirin AdvReac Unknown Verified 02/16/24 14:44 [email or web address] [From Chantix] AdvReac Anxiety Verified 02/16/24 14:44 - Social History Does the pt smoke?: No Smoking Status: Never smoker Does the pt drink ETOH?: Yes Does the pt have substance abuse?: Yes Substance Use and Type: Marijuana - Immunizations Immunizations are current?: Yes - POLST Patient has POLST: No PD ED PE NORMAL - Vitals Vital signs reviewed: Yes - General General: Alert and oriented X 3, No acute distress, Well developed/nourished - Back Back: No CVA TTP - Derm Derm: Normal color, Warm and dry, No rash Results - Vitals Vitals: Vital Signs - 24 hr 02/16/24 14:45 Temperature 37.2 C Heart Rate 77 Respiratory 16 Rate Blood Pressure 123/71 O2 Saturation 100 Oxygen O2 Source Room air - Labs Labs: Laboratory Tests 02/16/24 17:51 Urine Color DARK YELLOW Urine Clarity CLOUDY Urine pH 7.5 Ur Specific [place] 1.025 Urine Protein 100 H Urine Glucose (UA) NEGATIVE Urine Ketones TRACE Urine Occult Blood LARGE H Urine Nitrite NEGATIVE Urine Bilirubin NEGATIVE Urine Urobilinogen 0.2 (NORMAL) Ur Leukocyte Esterase SMALL H Urine RBC TNTC H Urine WBC >25 H Ur Squamous Epith Cells RARE Squamous Urine Bacteria Many H PD Medical Decision Making - ED course ED course: 38-year-old male presents emergency department for what he describes as blood clots in his urine. No CVA tenderness no pain on proportion urine does show a large occult blood small leukocytes with rare squamous cells. He also appears to have many bacteria. He says that he has had urinary tract infections multiple times before and normally feels significantly worse than what he is feeling now. The urine is malodorous. I sent a prescription of cefuroxime and Flomax to his preferred pharmacy and told him it was up to him if he wanted take the antibiotics do not but we would be sending the urine to be cultured and we will call him in the next couple days if he needs to start taking antibiotics. He has outpatient urology and he is attempting to get in with them to let them know about his new Cruz catheter and Flomax was sent to his preferred pharmacy to help with urine flow. he is given return precautions all questions answered patient is safe for discharge at this time. Departure - Departure Disposition: 01 Home, Self Care Clinical Impression: Catheter-associated urinary tract infection Qualifiers: Indwelling urinary catheter type: indwelling urethral catheter Encounter type: initial encounter Qualified Code(s): T83.511A - Infection and inflammatory reaction due to indwelling urethral catheter, initial encounter Instructions: ED UTI Cystitis Male Prescriptions: Cefuroxime Axetil [Cefuroxime] 500 mg PO BID 7 Days #14 tablet Tamsulosin [Flomax] 0.4 mg PO DAILY #30 tab Comments: You have a urinary tract infection and I sent your antibiotics to [facility] pharmacy pick this up first thing tomorrow morning you will take it twice a day for the next 7 days and continue to attempt to follow-up with urology for further evaluation of long-term plan for your chronic indwelling catheter. We will call you in 2 to 3 days if you need to change antibiotics in the meantime if you have taken your antibiotics for total of 2 days with little to no improvement of symptoms please come back to the emergency department for reevaluation. Forms: PCP List Discharge Date/Time: 02/16/24 18:45
[2024-02-16 18:07] LABS: BILIRUBIN,URINE NEGATIVE (NEGATIVE); GLUCOSE, URINE (UA) NEGATIVE (NEGATIVE); KETONES,URINE (UA) TRACE mg/dL (NEGATIVE); LEUKOCYTE ESTERASE, URINE SMALL (NEGATIVE); NITRITE,URINE NEGATIVE (NEGATIVE); OCCULT BLOOD,URINE LARGE (NEGATIVE); PH,URINE 7.5 PH (5.0-7.5); PROTEIN,URINE 100 mg/dL (NEGATIVE); UROBILINOGEN,URINE 0.2 (NORMAL) E.U./dL (NORMAL)
[2024-02-16 18:11] LABS: CLARITY,URINE CLOUDY (CLEAR)
[2024-02-16 18:20] LABS: BACTERIA,URINE Many /HPF (None Seen); RBC,URINE TNTC /HPF (0-5); SQUAMOUS EPITHELIAL CELL,UR RARE Squamous (<= Few); WBC,URINE >25 /HPF (0-3)
[2024-02-16] MEDS: TAMSULOSIN 0.4 MG CAPSULE PO STA (18:44)
== END 2024-02-16 18:45 | disposition home or self-care (01) ==
LOC: ED 14:23
DX: T83.511A Infection and inflammatory reaction due to indwelling urethral catheter, initial encounter (principal)
CPT/HCPCS: 81001; 99283; A9270

== ENCOUNTER 2024-02-22 04:50 | Emergency (ER) | payer MEDICARE, MEDICAID ==
[2024-02-22 05:06] VITALS: O2SAT 100
[2024-02-22] MEDS: HYDROmorphone 1 MG/ML CARPUJECT IM STA (05:35)
--- NOTE | 2024-02-22 05:51 | ED Physician Documentation ---
History of Present Illness - Stated complaint Stated Complaint: - Chief complaint Chief Complaint: General - History obtained from History obtained from: Patient - Additonal information Additional information: The patient comes to the emergency department with chief complaint of bilateral testicular burning. He states that it started suddenly a few hours ago and that it has persisted but comes in waves. He feels it radiating down into his bilateral thighs. He also states that with the onset of burning, he felt as though he was having a lower body spasm. He still feeling this somewhat. The patient is a paraplegic. He normally urinate spontaneously, however, but had a catheter placed a couple of weeks ago because of excessive urination. He was also found to have a urinary tract infection at that time and was started on antibiotics about a week and a half ago. He states he is followed by urology and that they want to keep the catheter in until they can do some other tests to assess why he is urinating so much. The patient denies any fevers or chills. No abdominal pain. No nausea or vomiting. PD PAST MEDICAL HISTORY - Past Medical History Past Medical History: Yes Cardiovascular: None Respiratory: None Neuro: Cerebral palsy Endocrine/Autoimmune: None GI: Other : Incontinence, Frequency, Other HEENT: Chronic hearing loss Psych: Anxiety, ADD/ADHD, Post traumatic stress disorder, Other Musculoskeletal: Paraplegia, Chronic back pain, Other Derm: Psoriasis - Past Surgical History Past Surgical History: Yes - Present Medications Home Medications: Ambulatory Orders Medication Instructions Recorded Confirmed Cefuroxime Axetil [Cefuroxime] 500 mg PO BID 7 Days #14 tablet 02/16/24 02/22/24 [place] Carbonate 600 mg PO DAILY 02/16/24 02/22/24 [place] Carbonate 900 mg PO HS 02/16/24 02/22/24 Tamsulosin [Flomax] 0.4 mg PO DAILY #30 tab 02/16/24 02/22/24 oxyBUTYnin chloride [Oxybutynin 5 mg PO DAILY 02/22/24 02/22/24 Chloride ER] - Allergies Allergies/Adverse Reactions: Allergies Allergy/AdvReac Type Severity Reaction Status Date / Time diphenhydramine Allergy Unknown Verified 02/22/24 05:04 [From Benadryl] acetaminophen [From Tylenol] AdvReac Dizziness Verified 02/22/24 05:04 aspirin AdvReac Unknown Verified 02/22/24 05:04 [email or web address] [From Chantix] AdvReac Anxiety Verified 02/22/24 05:04 - Social History Does the pt smoke?: Yes Smoking Status: Current every day smoker Does the pt drink ETOH?: Yes Does the pt have substance abuse?: Yes - Immunizations Immunizations are current?: Yes - POLST Patient has POLST: No PD ED PE NORMAL - Vitals Vital signs reviewed: Yes - General General: Alert and oriented X 3, No acute distress, Well developed/nourished - HEENT HEENT: Atraumatic, Moist mucous membranes - Neck Neck: Supple, no meningeal sign - Respiratory Respiratory: No respiratory distress - Abdomen Abdomen: Soft, Non distended, Other (Mild right-sided abdominal tenderness, no rebound or guarding) - Male Male : Other (Normal male genitalia. Catheter in place with clear light yellow urine in the bag. Bilateral testicles are mildly tender but do not feel distinctly enlarged or firm.) - Derm Derm: Normal color, Warm and dry, No rash - Extremities Extremities: No deformity - Neuro Neuro: Other (Alert, no grossly acute deficits.) - Psych Psych: Normal mood, Normal affect Results - Vitals Vitals: Vital Signs - 24 hr 02/22/24 04:54 Temperature 36.4 C L Heart Rate 72 Respiratory 16 Rate Blood Pressure 134/84 H O2 Saturation 100 Oxygen O2 Source Room air - Labs Labs: Laboratory Tests 02/22/24 05:40 Urine Color YELLOW Urine Clarity HAZY Urine pH 6.5 Ur Specific [place] 1.020 Urine Protein 30 H Urine Glucose (UA) NEGATIVE Urine Ketones NEGATIVE Urine Occult Blood MODERATE H Urine Nitrite POSITIVE H Urine Bilirubin NEGATIVE Urine Urobilinogen 0.2 (NORMAL) Ur Leukocyte Esterase SMALL H Urine RBC 6-10 H Urine WBC 6-10 H Ur Squamous Epith Cells RARE Squamous Urine Bacteria Many H Ur Microscopic Review INDICATED Urine Culture Comments INDICATED PD Medical Decision Making - ED course Complexity details: reviewed results, re-evaluated patient, considered differential, d/w patient ED course: The patient was worked up with urinalysis and ultrasound of the testicles and treated symptomatically with a dose of Dilaudid. Departure - Departure Disposition: 01 Home, Self Care Clinical Impression: Muscle spasms of both lower extremities Testicular pain Qualifiers: Laterality: bilateral Qualified Code(s): N50.811 - Right testicular pain; N50.812 - Left testicular pain Condition: Stable Instructions: ED Testicular Pain UKO Comments: Your ultrasound looks greatthere is no evidence of any problem with your testicles. Your urinalysis still shows some positivity, but we will need to wait for the culture to determine whether your antibiotics should be changed or whether you just need to finish the course of these. For now, please keep taking the antibiotics you are already on. We will call you if your culture results indicate otherwise. As far as the burning pain, and given the negative workup, it is most likely a nerve pain. This might have started with a bladder spasm which caused the sense of spasm in your legs as well. Please talk to your urologist about how to manage these episodes and they come up. Forms: PCP List
[2024-02-22 05:59] LABS: BILIRUBIN,URINE NEGATIVE (NEGATIVE); GLUCOSE, URINE (UA) NEGATIVE (NEGATIVE); KETONES,URINE (UA) NEGATIVE (NEGATIVE); LEUKOCYTE ESTERASE, URINE SMALL (NEGATIVE); NITRITE,URINE POSITIVE (NEGATIVE); OCCULT BLOOD,URINE MODERATE (NEGATIVE); PH,URINE 6.5 PH (5.0-7.5); PROTEIN,URINE 30 mg/dL (NEGATIVE); UROBILINOGEN,URINE 0.2 (NORMAL) E.U./dL (NORMAL)
[2024-02-22 06:07] LABS: BACTERIA,URINE Many /HPF (None Seen); CLARITY,URINE HAZY (CLEAR); SQUAMOUS EPITHELIAL CELL,UR RARE Squamous (<= Few)
[2024-02-22 07:02] VITALS: BP 107/75
--- NOTE | 2024-02-22 09:12 | Ultrasound Report ---
PROCEDURE: Testicle w/Doppler INDICATIONS: bilateral testicular pain TECHNIQUE: Real-time scanning was performed of the scrotum and testicles, with image documentation. Color and p ulse Doppler interrogation was performed of both testicles. COMPARISON: None. FINDINGS: Right: Testicle is normal in size at 3.9 x 2.5 x 2.4 cm, and homogenous in echotexture. Epididymis is normal in overall size and morphology. No hydrocele. No varicoceles. Overlying scrotal skin is n ormal in thickness. Left: Testicle is normal in size at 3.9 x 1.9 x 2.2 cm, and homogeneous in echotexture. Epididymis is normal in overall size and morphology. No hydrocele. No varicoceles. Overlying scrotal skin is n ormal in thickness. Doppler: Color and pulse Doppler demonstrate normal and symmetric arterial flow in both testicles. IMPRESSION: No sonographic evidence of infection or torsion. Agree with preliminary report. Reviewed by: Abdiel Hughes MD on 02/22/2024 9:11 AM PDT Approved by: Abdiel Hughes MD on 02/22/2024 9:11 AM PDT Station ID: [id number]
== END 2024-02-22 07:00 | disposition home or self-care (01) ==
LOC: ED 04:50
DX: N50.811 Right testicular pain (principal); N50.812 Left testicular pain; M62.838 Other muscle spasm; N39.0 Urinary tract infection, site not specified; F17.200 Nicotine dependence, unspecified, uncomplicated
CPT/HCPCS: 76870; 81001; 87086; 93975; 96372; 99283; J1170; 81003; 87077; 87181

== ENCOUNTER 2024-02-23 22:34 | Emergency (ER) | payer MEDICARE, MEDICAID ==
--- NOTE | 2024-02-23 22:42 | ED Physician Documentation ---
PD HPI MALE - Stated complaint Stated Complaint: - Chief complaint Chief Complaint: Abd Pain - History obtained from History obtained from: Patient PD PAST MEDICAL HISTORY - Past Medical History Past Medical History: Yes Cardiovascular: None Respiratory: None Neuro: Cerebral palsy Endocrine/Autoimmune: None GI: Other : Incontinence, Frequency, Other HEENT: Chronic hearing loss Psych: Anxiety, ADD/ADHD, Post traumatic stress disorder, Other Musculoskeletal: Paraplegia, Chronic back pain, Other Derm: Psoriasis - Past Surgical History Past Surgical History: Yes - Present Medications Home Medications: Ambulatory Orders Medication Instructions Recorded Confirmed Cefuroxime Axetil [Cefuroxime] 500 mg PO BID 7 Days #14 tablet 02/16/24 02/22/24 [place] Carbonate 600 mg PO DAILY 02/16/24 02/22/24 [place] Carbonate 900 mg PO HS 02/16/24 02/22/24 Tamsulosin [Flomax] 0.4 mg PO DAILY #30 tab 02/16/24 02/22/24 oxyBUTYnin chloride [Oxybutynin 5 mg PO DAILY 02/22/24 02/22/24 Chloride ER] Phenazopyridine HCl [Pyridium] 100 mg PO TID PRN #15 tablet 02/23/24 Sulfamethox/Trimeth 800/160 1 each PO BID #14 tablet 02/23/24 [Bactrim Ds 800/160] diazePAM [Valium] 5 mg PO BID PRN #15 tablet 02/23/24 - Allergies Allergies/Adverse Reactions: Allergies Allergy/AdvReac Type Severity Reaction Status Date / Time diphenhydramine Allergy Unknown Verified 02/23/24 22:36 [From Benadryl] acetaminophen [From Tylenol] AdvReac Dizziness Verified 02/23/24 22:36 aspirin AdvReac Unknown Verified 02/23/24 22:36 [email or web address] [From Chantix] AdvReac Anxiety Verified 02/23/24 22:36 - Social History Does the pt smoke?: Yes Smoking Status: Current every day smoker Does the pt drink ETOH?: Yes Does the pt have substance abuse?: Yes - Immunizations Immunizations are current?: Yes - POLST Patient has POLST: No PD ED PE NORMAL - Vitals Vital signs reviewed: Yes - General General: Alert and oriented X 3, Well developed/nourished - Abdomen Abdomen: Soft, Non distended - Male Male : Other (aranda in and draining into leg bag. some leg spasms carlos left side noted. ) Results - Vitals Vitals: Vital Signs - 24 hr 02/23/24 23:48 Heart Rate 82 Respiratory 16 Rate Blood Pressure 126/80 O2 Saturation 98 Oxygen O2 Source Room air PD Medical Decision Making - ED course Complexity details: reviewed results (urine culture pending/in progress. Has still notable infection and symptoms after 4 days on cephalosporin. Can change to another but might need changing again when get C&S results in 1-2 days. He wishes aranda out and not unreasonable. Can add pyridium. Having both bladder and leg spasms. Diazepam. ), considered differential (he is having bladder spasms with aranda in more than he had prior, despite oxybutynin Rx. He would prefer aranda out. It was not in due to excess retention per se, but for spasms and dysuria. Developed UTI. Has not had improved symptoms with antibiotic for 4 days now. Urine cx 2 days ago not final. ), d/w patient Departure - Departure Disposition: 01 Home, Self Care Clinical Impression: Bladder spasms, UTI (urinary tract infection), Muscle spasms of both lower extremities Condition: Stable Record reviewed to determine appropriate education?: Yes Follow-Up: Sophia Tim, [employer] [Primary Care Provider] - Prescriptions: Sulfamethox/Trimeth 800/160 [Bactrim Ds 800/160] 1 each PO BID #14 tablet Phenazopyridine HCl [Pyridium] 100 mg PO TID PRN #15 tablet PRN Reason: Abdominal Pain diazePAM [Valium] 5 mg PO BID PRN #15 tablet PRN Reason: Spasms Comments: Your urine sample from yesterday was showing signs of obvious infection. The urine culture is not resulted back yet at this time. I presume it will be tomorrow or later morning tomorrow commonly. It does appear that the current antibiotic you are on since the is not clearing this and we will need to change to a different 1. In order to not let it go further, I did start you on a different antibiotic with discussion with you this evening and if there is going to be another day or so for the culture then I would continue the Bactrim for now. If we do get the culture and sensitivities back tomorrow then that may better define which antibiotic choice. Meanwhile we have the catheter out so it is less irritating. You can use phenazopyridine to help with urinary and urethral discomfort. It asked to numb the inside of those areas within the urine flow. It will turn your urine a little orange. Continue your other usual medicines. I also prescribed diazepam to use twice daily if needed for skeletal muscle spasms. This may help some with bladder spasms as well. I sent your prescriptions to your preferred pharmacy. Forms: PCP List Discharge Date/Time: 02/23/24 23:48
[2024-02-23] MEDS: HYDROmorphone 1 MG/ML CARPUJECT IM STA (23:17)
[2024-02-23] MEDS: SULFAMETH/TRIMETH DS 800/160 MG TABLET PO STA (23:17)
[2024-02-23] MEDS: PHENAZOPYRIDINE 100 MG TABLET PO STA (23:17)
[2024-02-23 23:50] VITALS: BP 126/80; O2SAT 98
== END 2024-02-23 23:48 | disposition home or self-care (01) ==
LOC: ED 22:34
DX: N39.0 Urinary tract infection, site not specified (principal); G80.1 Spastic diplegic cerebral palsy; Z96.0 Presence of urogenital implants
CPT/HCPCS: 96372; 99283; A9270; J1170